=== PATIENT | female | born 1970 | race African-American/Black ===

== ENCOUNTER 2023-06-16 21:22 | Outpatient (BNV) | payer OTHER, SELFPAY | END 2023-06-17 | PROVIDERS: Admitting Provider Psychiatry & Neurology Psychiatry; Visit Provider Internal Medicine Cardiovascular Disease | DX: Z01.818 Encounter for other preprocedural examination (principal); F33.9 Major depressive disorder, recurrent, unspecified | CPT/HCPCS: 93010 ==

== ENCOUNTER 2023-06-16 21:22 | Inpatient (IN) | payer OTHER, SELFPAY ==
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
[2023-06-16 21:40] VITALS: BP 131/76; PULSE 65; RESP 18; TEMP 36.5; O2SAT 97
[2023-06-16] MEDS: LORazepam 0.5 MG TABLET PO (23:45)
[2023-06-16] MEDS: guaiFENesin LA 600 MG TAB.ER.12H PO (23:45)
[2023-06-16] MEDS: busPIRone HCl 10 MG TABLET PO (23:45)
[2023-06-16] MEDS: Throat Lozenge, Medicated LOZENGE 1 LOZENGE MUCOUS MEM (23:45)
[2023-06-16] MEDS: QUEtiapine Fumarate 50 MG TABLET PO (23:45)
[2023-06-16] MEDS: Topiramate 25 MG TABLET 75 MG PO (23:45)
--- NOTE | 2023-06-17 | ECG_ITS ---
Test Reason : ECT clearance Blood Pressure : / mmHG Vent. Rate : 068 BPM Atrial Rate : 068 BPM P-R Int : 144 ms QRS Dur : 084 ms QT Int : 414 ms P-R-T Axes : 033 -12 020 degrees QTc Int : 440 ms Normal sinus rhythm Normal ECG No previous ECGs available Referred By: Jaylan Barnett Electronically Signed By:Jg Doshi
[2023-06-17 02:41] VITALS: BMI 31.2
--- NOTE | 2023-06-17 03:02 | PC.ADMIT ---
Pt is a 52 yo female admitted to unit after interhospital transfer from [facility]. Pt was admitted to on 06/14/23 after an overdose and was treated in ICU. Pt then referred here at [facility] [place]. Pt attempted suicide via overdose on pills and was narcaned 5 times. Pt was intubated and is currently on antibiotics for preventive aspiration pneumonia secondary to intubation. Pt currently has productive cough and feels congested in lungs. Pt current medical issues are migraines, fibromyalgia, back pain, esophageal ulcers s/p gastric bypass, mid sternal CP d/t sternal rub/CPR, sore throat d/t intubation. Pt c/o headache moderate to severe. Pt denies etoh use and does report daily cannabis use of 1 joint daily to manage back pain. Pt reports that she has a back procedure scheduled for this Tuesday, June 20, 2023. Pt states that she was feeling alone and depressed in general. 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 While at work one night, pt feeling suicidal, called a crisis line and was put on hold after expressing her SI. She reports that she then quickly decided to overdose on her ativan, tinazidine and tylenol. Pt states her next memory is waking up in the hospital. When asked about how she feels about being here after suicide attempt, pt states good . Pt presents as quiet with good eye contact. Pt was linear in thinking and at times did exhibit some humor. Pt is dressed in [facility] [facility] and wrapped in a blanket. Pt's skin check was uneventful with no areas of rash, open areas, cuts or abrasions. Pt vitals were stable and WNL. Provider aeronautical drafter Roxanna notified of admission and orders obtained. Pt placed on 15 minute safety checks. Pt reports feeling safe in hospital.
[2023-06-17 06:00] VITALS: BP 110/77; PULSE 68; RESP 18; TEMP 36.6; O2SAT 98
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
[2023-06-17] MEDS: Topiramate 25 MG TABLET 75 MG PO (09:15)
[2023-06-17] MEDS: busPIRone HCl 10 MG TABLET PO (09:16)
[2023-06-17] MEDS: LORazepam 0.5 MG TABLET PO ×3 (09:25→20:56)
[2023-06-17 09:35] LABS: Alanine Aminotransferase 13 U/L (0-31); Albumin Level 3.5 g/dL (3.5-5.0); Alkaline Phosphatase 49 U/L (39-117); Anion Gap 10 (12-20); Aspartate Amino Transferase 13 U/L (5-31); Bilirubin Total 0.2 mg/dL (0.0-1.0); Blood Urea Nitrogen 9 mg/dL (9-16); Calcium 9.3 mg/dL (8.4-10.2); Carbon Dioxide 23 mmol/L (22-29); Chloride 112 mmol/L (96-108); Cholesterol 182 mg/dL (<200); Creatinine Clr Calc Pharmacy 91.6; Estimated Glomerular Filt Rate > 60; Glucose Fasting 82 mg/dL (60-99); HDL Cholesterol 78 mg/dL (>40); LDL Cholesterol Calculated 92 mg/dL (<100); Potassium 4.3 mmol/L (3.3-5.1); Sodium 141 mmol/L (135-145); Total Protein 6.3 g/dL (6.5-8.0); Triglycerides 64 mg/dL (<150)
[2023-06-17] MEDS: SUMAtriptan succinate 50 MG TABLET PO (10:19)
[2023-06-17] MEDS: Ondansetron ODT 4 MG TAB.RAPDIS TRANSLINGU (10:19)
[2023-06-17] MEDS: Throat Lozenge, Medicated LOZENGE 1 LOZENGE MUCOUS MEM ×3 (12:33→23:39)
[2023-06-17] MEDS: Amoxicillin/Potassium Clav 875 MG TABLET PO ×2 (13:29→20:45)
[2023-06-17] MEDS: FLUoxetine HCl 20 MG CAPSULE 80 MG PO (13:29)
[2023-06-17] MEDS: Lidocaine 4 % Patch ADH..PATCH 1 PATCH TRANSDERMA (13:30)
--- NOTE | 2023-06-17 17:08 | P.CONHOSP_ITS ---
History of Present Illness Data of Consult Service Date: 06/17/23 Primary Care Provider: Isacc Quinonez [facility] Reason for consult: Admission H&P; ECT clearance Pt is a 52-year-old female with a PMH significant for?fibromyalgia, migraines, chronic lower back pain, borderline personality trait, PTSD, and depression who is admitted to [facility] psychiatry unit for increased depression and suicide attempt by overdosing on Ativan, Tylenol, and tizanidine. Patient was found slumped over and unresponsive at a hotel desk. Given multiple doses intranasal and IV Narcan with little change. Was given [id number] ventilation on route to ED where she was subsequently intubated for airway protection. Was eventually extubated and started on Unasyn for suspected aspiration. Medical consult for admission H&P and ECT clearance. ?Patient complains of her stomach being messed up?. Reports having recent constipation with last bowel movement 1 week ago. Currently having gas, nausea, and abdominal cramping with frequent bowel movements with normal appearing stool. Denies diarrhea. Also complains of migraine headaches, as well as throat discomfort secondary to intubation and chest pain/pressure from chest compressions from EMS. Denies fever, chills. No shortness of breath. As for ECT clearance, ?pt denies a PMH of cerebral hemorrhage or stroke, CAD, space-occupying intracranial lesion, bleeding or otherwise unstable vascular aneurysm. No history of seizure disorder, TBI, or severe pulmonary condition. Denies any past problems with anesthesia. EKG pending. Review of Systems 2 Review of Systems: Migraine Gas, abd cramping, nausea Throat discomfort secondary to intubation Chest pain/discomfort secondary to chest compressions No fever, chills, vomiting, diarrhea, abd pain Denies SOB PMF Medical History (Updated 06/17/23 @ 19:29 by SHLOMO Hwang) Chronic low back pain Fibromyalgia Migraine Social History Household Members: None Housing: Apartment Do you presently have visiting nurse or other home services: Yes ([employer], Hom[employer]) Patient Tobacco Use Status: Never used Tobacco Smoked in Last 30 Days: No e-Cigarette/Vaping Use: Never Used Patient Interested in Nicotine Replacement: No Patient Given Instructions on How to Stop Smoking: No Use of substances other than those prescribed or required for medical reasons: Yes Substance Use Type: Marijuana Substance Use Frequency: Daily Last Used Substance: Just Prior to Admission Last Used Substance Other:: once joint a day Currently Displaying Signs/Symptoms of Drug Intoxication Withdrawal: No Any prior treatment program specific to substance use: No Have you been hit, kicked, punched, or otherwise hurt by someone within the past year? If so, by whom?: No Do you feel safe in your current relationship?: No Current Relationship Is there a partner from a previous relationship who is making you feel unsafe now?: No Are you made to feel afraid or neglected: No Advance Directives: No Advance Directives Information Provided: No Do you have thoughts of harming others: None Do you have a plan to hurt others: No Plan Recently lost weight without trying: No How much weight loss: Not applicable Eating poorly because of decreased appetite: No Nutrition screen score: 0 Nutrition Risks: No Nutritional Risk Patient : No : No Poor oral hygiene: No service: No Sexual orientation: Don't Know Meds Allergies Allergy/AdvReac Type Severity Reaction Status Date / Time lithium Allergy Unknown Unknown Verified 06/16/23 21:49 metformin Allergy Unknown Unknown Verified 06/16/23 21:49 NSAIDS (Non-Steroidal Allergy Unknown Unknown Verified 06/16/23 21:49 Anti-Inflamma propoxyphene Allergy Unknown Unknown Verified 06/16/23 21:49 sulfamethoxazole Allergy Unknown Unknown Verified 06/16/23 21:49 trimethoprim Allergy Unknown Unknown Verified 06/16/23 21:49 duloxetine AdvReac Unknown Nausea Verified 06/17/23 02:58 oxcarbazepine AdvReac Unknown Unknown Verified 06/16/23 21:49 Active Medications: Current Medications Al Hydroxide/Mg Hydroxide (Magnesium Hydrox/Alum Hydrox 30 Ml Oral.Susp) 30 ml PO Q6H PRN PRN Reason: Heartburn/Nausea Amoxicillin/Clavulanate Potassium (Amoxicillin/Potassium Clav 875 Mg Tablet) 875 mg PO BID [facility] Stop: 06/20/23 12:35 Last Admin: 06/17/23 13:29 Dose: 875 mg Benzocaine (Throat Lozenge, Medicated Lozenge) 1 lozenge MUCOUS MEM Q2H PRN PRN Reason: Sore Throat Last Admin: 06/17/23 12:33 Dose: 1 lozenge Buspirone HCl (Buspirone Hcl 10 Mg Tablet) 10 mg PO DAILY [facility] Fluoxetine HCl (Fluoxetine Hcl 20 Mg Capsule) 80 mg PO DAILY [facility] Last Admin: 06/17/23 13:29 Dose: 80 mg Fluticasone Propionate (Fluticasone Propionate Nasal 16 Gm [place]) 1 spray NOSTRIL-B BID ISAURO Last Admin: 06/17/23 09:17 Dose: Not Given Hydroxyzine HCl (Hydroxyzine Hcl 25 Mg Tablet) 25 mg PO Q6H PRN PRN Reason: Anxiety Lidocaine (Lidocaine 4 % Patch Adh..Patch) 1 patch TRANSDERMA DAILY PRN; Protocol PRN Reason: sternal pain Last Admin: 06/17/23 13:30 Dose: 1 patch Lorazepam (Lorazepam 0.5 Mg Tablet) 0.5 mg PO TID PRN PRN Reason: Anxiety Last Admin: 06/17/23 13:38 Dose: 0.5 mg Magnesium Hydroxide (Milk Of Magnesia 30 Ml Oral.Susp) 30 ml PO DAILY PRN PRN Reason: Constipation Magnesium Oxide (Magnesium Oxide 400 Mg Tablet) 400 mg PO DAILY ISAURO Multivitamins/Vitamin C (Multivitamin Tablet) 1 tab PO DAILY ISAURO Ondansetron HCl (Ondansetron Odt 4 Mg Tab.Rapdis) 4 mg TRANSLINGU Q6H PRN PRN Reason: Nausea and Vomiting Last Admin: 06/17/23 10:19 Dose: 4 mg Prazosin HCl (Prazosin Hcl 1 Mg Capsule) 1 mg PO BEDTIME ISAURO; Protocol Stop: 06/17/23 21:01 Prazosin HCl (Prazosin Hcl 1 Mg Capsule) 2 mg PO BEDTIME ISAURO; Protocol Stop: 06/18/23 21:01 Prazosin HCl (Prazosin Hcl 1 Mg Capsule) 3 mg PO BEDTIME ISAURO; Protocol Quetiapine Fumarate (Quetiapine Fumarate 50 Mg Tablet) 50 mg PO BEDTIME ISAURO Last Admin: 06/16/23 23:45 Dose: 50 mg Sumatriptan Succinate (Sumatriptan Succinate 100 Mg Tablet) 100 mg PO DAILY MRX1 PRN PRN Reason: Migraine Headache Topiramate (Topiramate 25 Mg Tablet) 50 mg PO BEDTIME ISAURO Stop: 06/18/23 21:01 Topiramate (Topiramate 25 Mg Tablet) 50 mg PO DAILY ISAURO Stop: 06/19/23 09:01 Topiramate (Topiramate 25 Mg Tablet) 25 mg PO DAILY ISAURO Stop: 06/21/23 09:01 Topiramate (Topiramate 25 Mg Tablet) 25 mg PO BEDTIME ISAURO Stop: 06/20/23 21:01 Trazodone HCl (Trazodone Hcl 50 Mg Tablet) 50 mg PO BEDTIME MRX1 PRN PRN Reason: Insomnia Home Medications Medication Instructions Recorded Confirmed Last Taken Type buspirone 10 mg tablet 10 mg PO TID 06/17/23 06/17/23 06/16/23 23:45 History cholecalciferol (vitamin D3) 50 50 mcg PO DAILY 06/17/23 06/17/23 Unknown History mcg (2,000 unit) tablet (Vitamin D3) fluoxetine 80 mg PO DAILY 06/17/23 06/17/23 06/16/23 09:02 History liraglutide 0.6 mg/0.1 mL (18 mg/3 1.8 mg subcut DAILY 06/17/23 06/17/23 Unknown History mL) subcutaneous pen injector (Victoza 3-Kyaw) lorazepam 0.5 mg tablet 0.5 mg PO TID PRN anxiety 06/17/23 06/17/23 Unknown History ondansetron 4 mg disintegrating 4 mg translingual Q8H PRN Nausea 06/17/23 06/17/23 Unknown History tablet quetiapine 50 mg tablet 50 mg PO BEDTIME 06/17/23 06/17/23 06/16/23 23:45 History sumatriptan succinate 100 mg tablet 100 mg PO 2XW 06/17/23 06/17/23 Unknown History tizanidine 4 mg tablet 4 mg PO Q12H PRN Muscle Pain 06/17/23 06/17/23 Unknown History topiramate 25 mg tablet 75 mg PO BID 06/17/23 06/17/23 06/16/23 23:45 History Physical Exam 2 Vital Signs and Narrative: Vital Signs: Last Vital Signs Temp 98 F 06/17/23 06:00 Pulse 68 06/17/23 06:00 Resp 18 06/17/23 06:00 BP 110/77 06/17/23 06:00 Pulse Ox 98 06/17/23 06:00 O2 Del Method Room Air 06/17/23 06:00 BMI result Body Mass Index 31.2 General: AOx3, no acute distress Resp: Coarse crackles bilaterally CVS: S1, S2, RRR GI: +BS, NT, no distention Skin: Warm, dry Neuro: Cranial nerves II-XII grossly intact bilaterally. Motor grossly intact bilaterally Extremities: No edema Results Labs 06/17/23 09:06 Labs: Laboratory Results - last 24 hr 06/17/23 09:06 Anion Gap 10 L Estim Creat Clear Calc 91.6 Estimated GFR > 60 Fasting Glucose 82 Calcium 9.3 Total Bilirubin 0.2 AST 13 ALT 13 Alkaline Phosphatase 49 Total Protein 6.3 L Albumin 3.5 Triglycerides 64 Cholesterol 182 LDL Cholesterol, Calc 92 HDL Cholesterol 78 Assessment and Plan (1) Medical clearance for psychiatric admission: Status: Acute (2) Pre-op evaluation: Status: Acute Plan Pt is a 52-year-old female with a PMH significant for?fibromyalgia, migraines, chronic lower back pain, borderline personality trait, PTSD, and depression who is admitted to [facility] psychiatry unit for increased depression and suicide attempt by overdosing on Ativan, Tylenol, and tizanidine. Patient was found slumped over and unresponsive at a hotel desk. Given multiple doses intranasal and IV Narcan with little change. Was given [id number] ventilation on route to ED where she was subsequently intubated for airway protection. Was eventually extubated and started on Unasyn for suspected aspiration. Medical consult for admission H&P and ECT clearance. Mood disorder Plan as per Psychiatry ECT clearance EKG pending Otherwise there are no obvious contraindications to the planned procedure Coarse crackles on auscultation Likely secondary to aspiration from overdose Continue Augmentin Abdominal cramping/discomfort, nausea Will give Gas-X Milk of magnesia and or Colace if constipation returns Ondansetron p.r.n. nausea Migraines Continue topiramate, sumatriptan Chronic lower back pain Continue tizanidine Will follow until EKG is completed.
[2023-06-17] MEDS: SUMAtriptan succinate 100 MG TABLET PO (18:55)
[2023-06-17 20:20] VITALS: BP 138/85; PULSE 65; RESP 18; TEMP 36.6; O2SAT 97
[2023-06-17] MEDS: Prazosin HCL 1 MG CAPSULE PO (20:44)
[2023-06-17] MEDS: QUEtiapine Fumarate 50 MG TABLET PO (20:44)
[2023-06-17] MEDS: Topiramate 25 MG TABLET 50 MG PO (20:45)
[2023-06-17] MEDS: Simethicone 80 MG TAB.CHEW PO (20:56)
[2023-06-18] MEDS: SUMAtriptan succinate 100 MG TABLET PO ×3 (03:13→17:40)
[2023-06-18] MEDS: LORazepam 0.5 MG TABLET PO ×3 (03:15→19:27)
[2023-06-18 06:00] VITALS: BP 106/84; PULSE 77; RESP 16; TEMP 36.8; O2SAT 98
[2023-06-18] MEDS: FLUoxetine HCl 20 MG CAPSULE 80 MG PO (08:49)
[2023-06-18] MEDS: busPIRone HCl 10 MG TABLET PO (08:49)
[2023-06-18] MEDS: Multivitamin TABLET 1 TAB PO (08:49)
[2023-06-18] MEDS: hydrOXYzine HCL 25 MG TABLET PO ×2 (08:49→13:38)
[2023-06-18] MEDS: Amoxicillin/Potassium Clav 875 MG TABLET PO ×2 (08:49→21:00)
[2023-06-18] MEDS: Magnesium Oxide 400 MG TABLET PO (08:49)
[2023-06-18] MEDS: Topiramate 25 MG TABLET 50 MG PO ×2 (08:49→20:59)
[2023-06-18] MEDS: Lidocaine 4 % Patch ADH..PATCH 1 PATCH TRANSDERMA (13:21)
[2023-06-18] MEDS: Throat Lozenge, Medicated LOZENGE 1 LOZENGE MUCOUS MEM ×2 (14:11→19:29)
--- NOTE | 2023-06-18 14:32 | P.PNPSI_ITS ---
Subjective Subjective Date of Service: 06/18/23 Reason For Visit: PTSD and BPD Subjective Notes: Conditional Voluntary Healthcare Proxy: No Guardianship: No Interim History: 52yo s/p significant OD on multiple medications- co throat pain from entubation- she is pending ECT for suicidal depression- still hopeless and helpless, passive si no current plan. 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 pending ekg prior to ECT Medication Compliance: Yes Side effects from medications: No Attending Groups: Intermittent Review of Systems Acute medical concerns: No Medical Review of Systems: unchanged Mental Status Exam Mental Status Exam Patient Appearance: Fatigued and Unkempt Patient Orientation: Person, Place, Time and Situation Level of Consciousness: Awake and Appropriate Patient Behavior: Cooperative and Good Eye Contact Mood Description: Withdrawn and Anxious Affect Description: Constricted Patient Cognition Impaired: No Ability to Follow Directions: Fair Speech Pattern: Clear Memory Description: Intact Hallucinations: None Delusions: Not Present Thought Process: Intact and Goal Oriented Thought Content: positive for Suicidal Ideation Depressive Symptoms: Increased Anxiety, Muscle Tension, Muscle Pain, Feelings of Worthlessness, Hopelessness, Unhappiness, Thoughts of /Suicide and Unexplained Stomach Pain Judgement: Fair Diagnostics Vital Signs (24Hr): Vital Signs - 24 hr 06/17/23 20:20 06/18/23 06:00 Temperature 97.8 F 98.3 F Pulse Rate 65 77 Respiratory Rate 18 16 Blood Pressure 138/85 106/84 Pulse Oximetry 97 98 Oxygen Delivery Method Room Air Room Air BMI result Body Mass Index 31.2 Labs 06/17/23 09:06 Labs: Laboratory Results - last 48 hr 06/17/23 09:06 Sodium 141 Potassium 4.3 Chloride 112 H Carbon Dioxide 23 Anion Gap 10 L BUN 9 Creatinine 0.81 Estim Creat Clear Calc 91.6 Estimated GFR > 60 Fasting Glucose 82 Calcium 9.3 Total Bilirubin 0.2 AST 13 ALT 13 Alkaline Phosphatase 49 Total Protein 6.3 L Albumin 3.5 Triglycerides 64 Cholesterol 182 LDL Cholesterol, Calc 92 HDL Cholesterol 78 Medications Medications Current Medications Al Hydroxide/Mg Hydroxide (Magnesium Hydrox/Alum Hydrox 30 Ml Oral.Susp) 30 ml PO Q6H PRN PRN Reason: Heartburn/Nausea Amoxicillin/Clavulanate Potassium (Amoxicillin/Potassium Clav 875 Mg Tablet) 875 mg PO BID [facility] Stop: 06/20/23 12:35 Last Admin: 06/18/23 08:49 Dose: 875 mg Benzocaine (Throat Lozenge, Medicated Lozenge) 1 lozenge MUCOUS MEM Q2H PRN PRN Reason: Sore Throat Last Admin: 06/18/23 14:11 Dose: 1 lozenge Buspirone HCl (Buspirone Hcl 10 Mg Tablet) 10 mg PO DAILY [facility] Last Admin: 06/18/23 08:49 Dose: 10 mg Fluoxetine HCl (Fluoxetine Hcl 20 Mg Capsule) 80 mg PO DAILY [facility] Last Admin: 06/18/23 08:49 Dose: 80 mg Fluticasone Propionate (Fluticasone Propionate Nasal 16 Gm [place]) 1 spray NOSTRIL-B BID [facility] Last Admin: 06/18/23 08:58 Dose: Not Given Hydroxyzine HCl (Hydroxyzine Hcl 25 Mg Tablet) 25 mg PO Q6H PRN PRN Reason: Anxiety Last Admin: 06/18/23 13:38 Dose: 25 mg Lidocaine (Lidocaine 4 % Patch Adh..Patch) 1 patch TRANSDERMA DAILY PRN; Protocol PRN Reason: sternal pain Last Admin: 06/18/23 13:21 Dose: 1 patch Lorazepam (Lorazepam 0.5 Mg Tablet) 0.5 mg PO TID PRN PRN Reason: Anxiety Last Admin: 06/18/23 09:00 Dose: 0.5 mg Magnesium Hydroxide (Milk Of Magnesia 30 Ml Oral.Susp) 30 ml PO DAILY PRN PRN Reason: Constipation Magnesium Oxide (Magnesium Oxide 400 Mg Tablet) 400 mg PO DAILY [facility] Last Admin: 06/18/23 08:49 Dose: 400 mg Multivitamins/Vitamin C (Multivitamin Tablet) 1 tab PO DAILY [facility] Last Admin: 06/18/23 08:49 Dose: 1 tab Ondansetron HCl (Ondansetron Odt 4 Mg Tab.Rapdis) 4 mg TRANSLINGU Q6H PRN PRN Reason: Nausea and Vomiting Last Admin: 06/17/23 10:19 Dose: 4 mg Prazosin HCl (Prazosin Hcl 1 Mg Capsule) 2 mg PO BEDTIME [facility]; Protocol Stop: 06/18/23 21:01 Prazosin HCl (Prazosin Hcl 1 Mg Capsule) 3 mg PO BEDTIME [facility]; Protocol Quetiapine Fumarate (Quetiapine Fumarate 50 Mg Tablet) 50 mg PO BEDTIME [facility] Last Admin: 06/17/23 20:44 Dose: 50 mg Simethicone (Simethicone 80 Mg Tab.Chew) 80 mg PO QIDWMHS PRN PRN Reason: Gas Last Admin: 06/17/23 20:56 Dose: 80 mg Sumatriptan Succinate (Sumatriptan Succinate 100 Mg Tablet) 100 mg PO DAILY MRX1 PRN PRN Reason: Migraine Headache Last Admin: 06/18/23 13:21 Dose: 100 mg Topiramate (Topiramate 25 Mg Tablet) 50 mg PO BEDTIME [facility] Stop: 06/18/23 21:01 Last Admin: 06/17/23 20:45 Dose: 50 mg Topiramate (Topiramate 25 Mg Tablet) 50 mg PO DAILY [facility] Stop: 06/19/23 09:01 Last Admin: 06/18/23 08:49 Dose: 50 mg Topiramate (Topiramate 25 Mg Tablet) 25 mg PO DAILY [facility] Stop: 06/21/23 09:01 Topiramate (Topiramate 25 Mg Tablet) 25 mg PO BEDTIME [facility] Stop: 06/20/23 21:01 Trazodone HCl (Trazodone Hcl 50 Mg Tablet) 50 mg PO BEDTIME MRX1 PRN PRN Reason: Insomnia Allergies Allergies Allergy/AdvReac Type Severity Reaction Status Date / Time lithium Allergy Unknown Unknown Verified 06/16/23 21:49 metformin Allergy Unknown Unknown Verified 06/16/23 21:49 NSAIDS (Non-Steroidal Allergy Unknown Unknown Verified 06/16/23 21:49 Anti-Inflamma propoxyphene Allergy Unknown Unknown Verified 06/16/23 21:49 sulfamethoxazole Allergy Unknown Unknown Verified 06/16/23 21:49 trimethoprim Allergy Unknown Unknown Verified 06/16/23 21:49 duloxetine AdvReac Unknown Nausea Verified 06/17/23 02:58 oxcarbazepine AdvReac Unknown Unknown Verified 06/16/23 21:49 Assessment & Plan Assessment & Plan (1) Major depressive disorder, recurrent episode: Status: Acute Code(s): F33.9 - Major depressive disorder, recurrent, unspecified (2) Chronic post-traumatic stress disorder (PTSD): Status: Acute Code(s): F43.12 - Post-traumatic stress disorder, chronic (3) Cocaine use disorder in remission: Status: Acute Code(s): F14.91 - Cocaine use, unspecified, in remission (4) Cannabis use with anxiety disorder: Status: Acute Code(s): F12.980 - Cannabis use, unspecified with anxiety disorder Plan continue most of outpatient regimen, including buspar, prozac, ativan, prozazc, seroquel. taper and DC topamax as not presently indicated and as relatively contraindicated for ECT. she had been taking it for cocaine cravings, and she is no longer substantially concerned about cocaine use. pt uses victoza daily SQ injections; she does not have medication with her and it is NF at [facility]. said medication will be held until discharge. continue bactrim DS BID for 3 days for aspiration PNA. consult for medical clearance for ECT and ECT consult to Dr Marie. 06/18/23 - ok prn tylenol- lfts ok and tyl lvl 06/14 less 15 -CTP with pending ECT for depression/si Patient educated on: medication risk/benefits, ECT and medical condition Informed Consent: further education needed Reason for continued inpatient stay Substantial Risk for: harm to self and rapid decompensation Time Spent With Patient Time: Total time managing care of this patient today ____ minutes.
[2023-06-18 21:00] VITALS: BP 115/69; PULSE 68; RESP 18; TEMP 36.6; O2SAT 98
[2023-06-18] MEDS: QUEtiapine Fumarate 50 MG TABLET PO (21:00)
[2023-06-18] MEDS: Prazosin HCL 1 MG CAPSULE 2 MG PO (21:00)
[2023-06-19] MEDS: hydrOXYzine HCL 25 MG TABLET PO ×3 (02:03→19:34)
[2023-06-19] MEDS: LORazepam 0.5 MG TABLET PO ×2 (02:03→14:04)
[2023-06-19] MEDS: SUMAtriptan succinate 100 MG TABLET PO ×2 (02:03→14:04)
[2023-06-19] MEDS: HaloperidoL 5 MG TABLET PO (04:53)
[2023-06-19] MEDS: LORazepam 1 MG TABLET PO (04:53)
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
[2023-06-19 07:05] VITALS: BP 104/55; PULSE 70; RESP 18; TEMP 36.4; O2SAT 96
[2023-06-19] MEDS: Amoxicillin/Potassium Clav 875 MG TABLET PO ×2 (08:14→20:27)
[2023-06-19] MEDS: Multivitamin TABLET 1 TAB PO (08:15)
[2023-06-19] MEDS: busPIRone HCl 10 MG TABLET PO (08:15)
[2023-06-19] MEDS: Magnesium Oxide 400 MG TABLET PO (08:15)
[2023-06-19] MEDS: FLUoxetine HCl 20 MG CAPSULE 80 MG PO (08:16)
[2023-06-19] MEDS: Topiramate 25 MG TABLET 50 MG PO (08:16)
[2023-06-19] MEDS: Acetaminophen 325 MG TABLET 650 MG PO (08:51)
[2023-06-19] MEDS: Lidocaine 4 % Patch ADH..PATCH 1 PATCH TRANSDERMA (08:52)
--- NOTE | 2023-06-19 13:55 | P.PNPSI_ITS ---
Subjective Subjective Date of Service: 06/19/23 Reason For Visit: PTSD and BPD Subjective Notes: Conditional Voluntary Interim History: 52 yo told her son that she was going for ECT - hoping it will make a difference- Had terrible incident last pm couldn't sleep so went to shower - was loud in shower and staff (male) went to tell her to lower volume/tone- pt began yelling and screaming - felt triggered and intruded upon- like her past trauma- felt if there had been a knock she would have been less reactive- felt haldol/ativan calmed her down- Discussed no ativan prior to ECt night before and npo- was given print out from [facility] on ECT information- Medication Compliance: Yes Side effects from medications: No Attending Groups: Yes Review of Systems Acute medical concerns: No Medical Review of Systems: unchanged Mental Status Exam Mental Status Exam Patient Appearance: Well Grooomed and Appropriate Patient Orientation: Person, Place, Time and Situation Level of Consciousness: Awake Patient Behavior: Appropriate (today- ), Talkative, Cooperative, Fearful and Good Eye Contact Mood Description: Anxious Affect Description: Apprehensive Patient Cognition Impaired: No Ability to Follow Directions: Good Speech Pattern: Clear Hallucinations: None Delusions: Not Present Thought Process: Intact and Goal Oriented Thought Content: positive for Intact and positive for Suicidal Ideation Depressive Symptoms: Increased Anxiety, Diff. Making Decisions, Difficulty Sleeping and Loss of Energy Judgement: Fair Diagnostics Vital Signs (24Hr): Vital Signs - 24 hr 06/18/23 21:00 06/19/23 07:05 Temperature 97.8 F 97.5 F Pulse Rate 68 70 Respiratory Rate 18 18 Blood Pressure 115/69 104/55 L Pulse Oximetry 98 96 Oxygen Delivery Method Room Air Room Air BMI result Body Mass Index 31.2 Labs 06/17/23 09:06 Medications Medications Current Medications Acetaminophen (Acetaminophen 325 Mg Tablet) 650 mg PO Q6H PRN PRN Reason: moderate pain Last Admin: 06/19/23 08:51 Dose: 650 mg Al Hydroxide/Mg Hydroxide (Magnesium Hydrox/Alum Hydrox 30 Ml Oral.Susp) 30 ml PO Q6H PRN PRN Reason: Heartburn/Nausea Amoxicillin/Clavulanate Potassium (Amoxicillin/Potassium Clav 875 Mg Tablet) 875 mg PO BID [facility] Stop: 06/20/23 12:35 Last Admin: 06/19/23 08:14 Dose: 875 mg Benzocaine (Throat Lozenge, Medicated Lozenge) 1 lozenge MUCOUS MEM Q2H PRN PRN Reason: Sore Throat Last Admin: 06/18/23 19:29 Dose: 1 lozenge Buspirone HCl (Buspirone Hcl 10 Mg Tablet) 10 mg PO DAILY [facility] Last Admin: 06/19/23 08:15 Dose: 10 mg Fluoxetine HCl (Fluoxetine Hcl 20 Mg Capsule) 80 mg PO DAILY [facility] Last Admin: 06/19/23 08:16 Dose: 80 mg Fluticasone Propionate (Fluticasone Propionate Nasal 16 Gm [place]) 1 spray NOSTRIL-B BID [facility] Last Admin: 06/19/23 08:17 Dose: Not Given Hydroxyzine HCl (Hydroxyzine Hcl 25 Mg Tablet) 25 mg PO Q6H PRN PRN Reason: Anxiety Last Admin: 06/19/23 08:50 Dose: 25 mg Lidocaine (Lidocaine 4 % Patch Adh..Patch) 1 patch TRANSDERMA DAILY PRN; Protocol PRN Reason: sternal pain Last Admin: 06/19/23 08:52 Dose: 1 patch Lorazepam (Lorazepam 0.5 Mg Tablet) 0.5 mg PO TID PRN PRN Reason: Anxiety Last Admin: 06/19/23 02:03 Dose: 0.5 mg Magnesium Hydroxide (Milk Of Magnesia 30 Ml Oral.Susp) 30 ml PO DAILY PRN PRN Reason: Constipation Magnesium Oxide (Magnesium Oxide 400 Mg Tablet) 400 mg PO DAILY [facility] Last Admin: 06/19/23 08:15 Dose: 400 mg Multivitamins/Vitamin C (Multivitamin Tablet) 1 tab PO DAILY [facility] Last Admin: 06/19/23 08:15 Dose: 1 tab Ondansetron HCl (Ondansetron Odt 4 Mg Tab.Rapdis) 4 mg TRANSLINGU Q6H PRN PRN Reason: Nausea and Vomiting Last Admin: 06/17/23 10:19 Dose: 4 mg Prazosin HCl (Prazosin Hcl 1 Mg Capsule) 3 mg PO BEDTIME [facility]; Protocol Quetiapine Fumarate (Quetiapine Fumarate 50 Mg Tablet) 50 mg PO BEDTIME [facility] Last Admin: 06/18/23 21:00 Dose: 50 mg Simethicone (Simethicone 80 Mg Tab.Chew) 80 mg PO QIDWMHS PRN PRN Reason: Gas Last Admin: 06/17/23 20:56 Dose: 80 mg Sumatriptan Succinate (Sumatriptan Succinate 100 Mg Tablet) 100 mg PO DAILY MRX1 PRN PRN Reason: Migraine Headache Last Admin: 06/19/23 02:03 Dose: 100 mg Topiramate (Topiramate 25 Mg Tablet) 25 mg PO DAILY [facility] Stop: 06/21/23 09:01 Topiramate (Topiramate 25 Mg Tablet) 25 mg PO BEDTIME [facility] Stop: 06/20/23 21:01 Trazodone HCl (Trazodone Hcl 50 Mg Tablet) 50 mg PO BEDTIME MRX1 PRN PRN Reason: Insomnia Allergies Allergies Allergy/AdvReac Type Severity Reaction Status Date / Time lithium Allergy Unknown Unknown Verified 06/16/23 21:49 metformin Allergy Unknown Unknown Verified 06/16/23 21:49 NSAIDS (Non-Steroidal Allergy Unknown Unknown Verified 06/16/23 21:49 Anti-Inflamma propoxyphene Allergy Unknown Unknown Verified 06/16/23 21:49 sulfamethoxazole Allergy Unknown Unknown Verified 06/16/23 21:49 trimethoprim Allergy Unknown Unknown Verified 06/16/23 21:49 duloxetine AdvReac Unknown Nausea Verified 06/17/23 02:58 oxcarbazepine AdvReac Unknown Unknown Verified 06/16/23 21:49 Assessment & Plan Assessment & Plan (1) Major depressive disorder, recurrent episode: Status: Acute Code(s): F33.9 - Major depressive disorder, recurrent, unspecified Assessment and Plan: pending ECT (2) Chronic post-traumatic stress disorder (PTSD): Status: Acute Code(s): F43.12 - Post-traumatic stress disorder, chronic Assessment and Plan: very reactive/reactionary- with triggers jm at night (3) Cocaine use disorder in remission: Status: Acute Code(s): F14.91 - Cocaine use, unspecified, in remission (4) Cannabis use with anxiety disorder: Status: Acute Code(s): F12.980 - Cannabis use, unspecified with anxiety disorder Plan Pt is a 52-year-old female with a PMH significant for?fibromyalgia, migraines, chronic lower back pain, borderline personality trait, PTSD, and depression who is admitted to psychiatry unit for increased depression and suicide attempt by overdosing on Ativan, Tylenol, and tizanidine. Patient was found slumped over and unresponsive at a hotel desk. Given multiple doses intranasal and IV Narcan with little change. Was given [id number] ventilation on route to ED where she was subsequently intubated for airway protection. Was eventually extubated and started on Unasyn for suspected aspiration. Medical consult for admission H&P and ECT clearance. Mood disorder Plan as per Psychiatry ECT clearance EKG pending Otherwise there are no obvious contraindications to the planned procedure Coarse crackles on auscultation Likely secondary to aspiration from overdose Continue Augmentin Abdominal cramping/discomfort, nausea Will give Gas-X Milk of magnesia and or Colace if constipation returns Ondansetron p.r.n. nausea Migraines Continue topiramate, sumatriptan Chronic lower back pain Continue tizanidine Will follow until EKG is completed. 06/19/23 will be npo tonight in hopes of add on for ECT tomorrow Patient educated on: ECT Informed Consent: understands Reason for continued inpatient stay Substantial Risk for: harm to self and rapid decompensation Time Spent With Patient Time: Total time managing care of this patient today ____ minutes.
[2023-06-19] MEDS: QUEtiapine Fumarate 50 MG TABLET PO (20:28)
[2023-06-19] MEDS: Topiramate 25 MG TABLET PO (20:28)
[2023-06-19] MEDS: Prazosin HCL 1 MG CAPSULE 3 MG PO (20:28)
[2023-06-19 20:31] VITALS: BP 114/64; PULSE 81; RESP 16; TEMP 36.4; O2SAT 97
--- NOTE | 2023-06-19 20:57 | PC.NURSE ---
Keke was given Atarax PO prn for anxiety 08/28.
[2023-06-20] MEDS: Acetaminophen 325 MG TABLET 650 MG PO (08:11)
[2023-06-20] MEDS: LORazepam 1 MG TABLET 2 MG PO (08:11)
[2023-06-20] MEDS: OLANZapine 5 MG TABLET PO (08:14)
[2023-06-20 09:00] VITALS: BP 136/98; PULSE 77; RESP 18; TEMP 36.5; O2SAT 97
[2023-06-20] MEDS: Multivitamin TABLET 1 TAB PO (09:35)
[2023-06-20] MEDS: Topiramate 25 MG TABLET PO ×2 (09:35→21:08)
[2023-06-20] MEDS: busPIRone HCl 10 MG TABLET PO (09:35)
[2023-06-20] MEDS: FLUoxetine HCl 20 MG CAPSULE 80 MG PO (09:35)
[2023-06-20] MEDS: Magnesium Oxide 400 MG TABLET PO (09:35)
[2023-06-20] MEDS: Amoxicillin/Potassium Clav 875 MG TABLET PO (09:35)
[2023-06-20] MEDS: Lidocaine 4 % Patch ADH..PATCH 1 PATCH TRANSDERMA (12:16)
[2023-06-20] MEDS: LORazepam 0.5 MG TABLET PO ×2 (12:16→21:07)
[2023-06-20] MEDS: hydrOXYzine HCL 50 MG TABLET PO (12:16)
--- NOTE | 2023-06-20 14:47 | HO.PSYCHPN ---
Subjective Subjective Date of Service: 06/20/23 Reason For Visit: PTSD and BPD Interim History: seen late morning resting in bed. rousable, pleasant, cooperative. discuss events of the morning wherein she reportedly became very verbally aggressive with staff when she was told she would not be getting ECT today after having been NPO all night. she portrayed the situation as if she had been led to believe she WOULD have ECT today and was FORCED to be NPO. staff at report described the situation rather as she was told it was POSSIBLE she might have ECT today and if she wanted to try for it then she SHOULD be NPO overnight. punched wall, xray read as no Fx. reviewed with pt. c/o insomnia with nightmares as well as daytime anxiety. agreed to increase prazosin to 4 mg QHS for sleep/coon and to increase daytime hydroxyzine PRNs to 50 mg each for anxiety. per staff, outburst thism orning re not getting ECT. sat NOC overnight was up and disruptive at 0200 due to male staff asking her to be quiet in the shower. Mental Status Exam Mental Status Exam Narrative: adequately dressed and groomed, cooperative, no PMA/PMR. speech nml rate, amount, loudness, tone, latency. thoughts linear and logical. affect constricted, normo-intense, min-labile. mood not assessed. no SI/SIBI/HI/AVH expressed. Diagnostics Vital Signs (24Hr): Vital Signs - 24 hr 06/19/23 20:31 06/20/23 09:00 Temperature 97.6 F 97.7 F Pulse Rate 81 77 Respiratory Rate 16 18 Blood Pressure 114/64 136/98 H Pulse Oximetry 97 97 Oxygen Delivery Method Room Air Room Air BMI result Body Mass Index 31.2 Labs 06/17/23 09:06 Imaging Radiology Impressions: ITS Impressions Wrist X-Ray 06/20/23 08:40 IMPRESSION: Linear sclerotic focus distal metadiaphysis of the fifth metacarpal without cortical discontinuity/displacement. An occult fracture cannot be excluded. This corresponds to the marker placed at the site of trauma. Short interval follow-up may be considered. Medications Medications Current Medications Acetaminophen (Acetaminophen 325 Mg Tablet) 975 mg PO Q6H PRN PRN Reason: moderate pain Al Hydroxide/Mg Hydroxide (Magnesium Hydrox/Alum Hydrox 30 Ml Oral.Susp) 30 ml PO Q6H PRN PRN Reason: Heartburn/Nausea Benzocaine (Throat Lozenge, Medicated Lozenge) 1 lozenge MUCOUS MEM Q2H PRN PRN Reason: Sore Throat Last Admin: 06/18/23 19:29 Dose: 1 lozenge Buspirone HCl (Buspirone Hcl 10 Mg Tablet) 10 mg PO DAILY [facility] Last Admin: 06/20/23 09:35 Dose: 10 mg Fluoxetine HCl (Fluoxetine Hcl 20 Mg Capsule) 80 mg PO DAILY [facility] Last Admin: 06/20/23 09:35 Dose: 80 mg Fluticasone Propionate (Fluticasone Propionate Nasal 16 Gm [place]) 1 spray NOSTRIL-B BID PRN PRN Reason: Nasal Congestion Hydroxyzine HCl (Hydroxyzine Hcl 50 Mg Tablet) 50 mg PO Q6H PRN PRN Reason: Anxiety Last Admin: 06/20/23 12:16 Dose: 50 mg Lidocaine (Lidocaine 4 % Patch Adh..Patch) 1 patch TRANSDERMA DAILY PRN; Protocol PRN Reason: sternal pain Last Admin: 06/20/23 12:16 Dose: 1 patch Lorazepam (Lorazepam 0.5 Mg Tablet) 0.5 mg PO TID PRN PRN Reason: Anxiety Last Admin: 06/20/23 12:16 Dose: 0.5 mg Magnesium Hydroxide (Milk Of Magnesia 30 Ml Oral.Susp) 30 ml PO DAILY PRN PRN Reason: Constipation Magnesium Oxide (Magnesium Oxide 400 Mg Tablet) 400 mg PO DAILY [facility] Last Admin: 06/20/23 09:35 Dose: 400 mg Multivitamins/Vitamin C (Multivitamin Tablet) 1 tab PO DAILY [facility] Last Admin: 06/20/23 09:35 Dose: 1 tab Ondansetron HCl (Ondansetron Odt 4 Mg Tab.Rapdis) 4 mg TRANSLINGU Q6H PRN PRN Reason: Nausea and Vomiting Last Admin: 06/17/23 10:19 Dose: 4 mg Prazosin HCl (Prazosin Hcl 1 Mg Capsule) 4 mg PO BEDTIME [facility]; Protocol Quetiapine Fumarate (Quetiapine Fumarate 50 Mg Tablet) 50 mg PO BEDTIME [facility] Simethicone (Simethicone 80 Mg Tab.Chew) 80 mg PO QIDWMHS PRN PRN Reason: Gas Last Admin: 06/17/23 20:56 Dose: 80 mg Sumatriptan Succinate (Sumatriptan Succinate 100 Mg Tablet) 100 mg PO DAILY MRX1 PRN PRN Reason: Migraine Headache Last Admin: 06/19/23 14:04 Dose: 100 mg Topiramate (Topiramate 25 Mg Tablet) 25 mg PO DAILY [facility] Stop: 06/21/23 09:01 Last Admin: 06/20/23 09:35 Dose: 25 mg Topiramate (Topiramate 25 Mg Tablet) 25 mg PO BEDTIME [facility] Stop: 06/20/23 21:01 Last Admin: 06/19/23 20:28 Dose: 25 mg Trazodone HCl (Trazodone Hcl 50 Mg Tablet) 50 mg PO BEDTIME MRX1 PRN PRN Reason: Insomnia Allergies Allergies Allergy/AdvReac Type Severity Reaction Status Date / Time lithium Allergy Unknown Unknown Verified 06/16/23 21:49 metformin Allergy Unknown Unknown Verified 06/16/23 21:49 NSAIDS (Non-Steroidal Allergy Unknown Unknown Verified 06/16/23 21:49 Anti-Inflamma propoxyphene Allergy Unknown Unknown Verified 06/16/23 21:49 sulfamethoxazole Allergy Unknown Unknown Verified 06/16/23 21:49 trimethoprim Allergy Unknown Unknown Verified 06/16/23 21:49 duloxetine AdvReac Unknown Nausea Verified 06/17/23 02:58 oxcarbazepine AdvReac Unknown Unknown Verified 06/16/23 21:49 Assessment & Plan Assessment & Plan (1) Major depressive disorder, recurrent episode: Status: Acute Code(s): F33.9 - Major depressive disorder, recurrent, unspecified Assessment and Plan: pending ECT (2) Chronic post-traumatic stress disorder (PTSD): Status: Acute Code(s): F43.12 - Post-traumatic stress disorder, chronic Assessment and Plan: very reactive/reactionary- with triggers jm at night (3) Cocaine use disorder in remission: Status: Acute Code(s): F14.91 - Cocaine use, unspecified, in remission (4) Cannabis use with anxiety disorder: Status: Acute Code(s): F12.980 - Cannabis use, unspecified with anxiety disorder Plan Pt is a 52-year-old female with a PMH significant for?fibromyalgia, migraines, chronic lower back pain, borderline personality trait, PTSD, and depression who is admitted to psychiatry unit for increased depression and suicide attempt by overdosing on Ativan, Tylenol, and tizanidine. Patient was found slumped over and unresponsive at a hotel desk. Given multiple doses intranasal and IV Narcan with little change. Was given [id number] ventilation on route to ED where she was subsequently intubated for airway protection. Was eventually extubated and started on Unasyn for suspected aspiration. Medical consult for admission H&P and ECT clearance. Mood disorder Plan as per Psychiatry ECT clearance EKG pending Otherwise there are no obvious contraindications to the planned procedure Coarse crackles on auscultation Likely secondary to aspiration from overdose Continue Augmentin Abdominal cramping/discomfort, nausea Will give Gas-X Milk of magnesia and or Colace if constipation returns Ondansetron p.r.n. nausea Migraines Continue topiramate, sumatriptan Chronic lower back pain Continue tizanidine Will follow until EKG is completed. 06/16: continue most of outpatient regimen, including buspar, prozac, ativan, prozazc, seroquel. taper and DC topamax as not presently indicated and as relatively contraindicated for ECT. she had been taking it for cocaine cravings, and she is no longer substantially concerned about cocaine use. pt uses victoza daily SQ injections; she does not have medication with her and it is NF at [facility] [place]. said medication will be held until discharge. continue bactrim DS BID for 3 days for aspiration PNA. consult for medical clearance for ECT and ECT consult to Dr Marie. 06/18/23 - ok prn tylenol- lfts ok and tyl lvl 06/14 less 15 -CTP with pending ECT for depression/si 06/19/23 will be npo tonight in hopes of add on for ECT tomorrow 06/19: outburst due to not having expected ECT this morning. consult verbally communicated to yasmine. medically cleared for ECT. increase prazosin to 4 mg QHS for nightmares and insomnia in PTSD. increase daytime hydroxyzine PRNs to 50 mg each. hoping to start ECT . seroquel 50 mg QHS scheduled for insomnia. Reason for continued inpatient stay Substantial Risk for: harm to self, harm to others, inability to function and rapid decompensation Time Spent With Patient Time: Total time managing care of this patient today __35__ minutes.
[2023-06-20] MEDS: Acetaminophen 325 MG TABLET 975 MG PO (15:45)
[2023-06-20] MEDS: Magnesium Hydrox/Alum Hydrox 30 ML ORAL.SUSP PO (15:45)
[2023-06-20 21:00] VITALS: BP 112/66; PULSE 76; RESP 15; TEMP 36.4; O2SAT 96
[2023-06-20] MEDS: Prazosin HCL 1 MG CAPSULE 4 MG PO (21:05)
[2023-06-20] MEDS: QUEtiapine Fumarate 50 MG TABLET PO (21:06)
[2023-06-21] MEDS: Acetaminophen 325 MG TABLET 975 MG PO (01:44)
[2023-06-21] MEDS: QUEtiapine Fumarate 50 MG TABLET PO ×3 (01:44→23:18)
[2023-06-21] MEDS: hydrOXYzine HCL 50 MG TABLET PO ×3 (01:44→23:17)
--- NOTE | 2023-06-21 01:47 | PC.NURSE ---
Keke was given Seroquel PO prn for insomnia, Atarax PO prn for moderate anxiety, and Tylenol PO prn for headache 5/10
[2023-06-21] MEDS: LORazepam 0.5 MG TABLET PO ×2 (05:03→14:10)
[2023-06-21 07:40] VITALS: BP 123/70; PULSE 60; RESP 16; TEMP 36.4; O2SAT 96
[2023-06-21] MEDS: Simethicone 80 MG TAB.CHEW PO ×4 (09:22→21:03)
[2023-06-21] MEDS: FLUoxetine HCl 20 MG CAPSULE 80 MG PO (09:22)
[2023-06-21] MEDS: Multivitamin TABLET 1 TAB PO (09:24)
[2023-06-21] MEDS: Magnesium Oxide 400 MG TABLET PO (09:24)
[2023-06-21] MEDS: busPIRone HCl 10 MG TABLET PO (09:24)
[2023-06-21] MEDS: HaloperidoL 5 MG TABLET PO ×4 (09:25→23:17)
[2023-06-21] MEDS: Topiramate 25 MG TABLET PO (09:25)
--- NOTE | 2023-06-21 09:56 | PC.NURSE ---
Patient requested BP be taken, reports discomfort with radiation down L arm. No diaphoresis. Dr Jackson notified will further assess patient.
[2023-06-21] MEDS: Ondansetron ODT 4 MG TAB.RAPDIS TRANSLINGU (14:10)
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
[2023-06-21 21:00] VITALS: BP 112/75; PULSE 89; RESP 16; TEMP 36.6; O2SAT 95
[2023-06-21] MEDS: Prazosin HCL 1 MG CAPSULE 4 MG PO (21:02)
[2023-06-22] VITALS (12 sets, daily range): BP systolic 112–169; BP diastolic 57–88; PULSE 61–74; RESP 14–18; TEMP 36.3–37.4; O2SAT 93–98
--- NOTE | 2023-06-22 09:41 | HO.ANESPROP2 ---
[facility] Active Problems Active Problems: All Active Problems (Updated 06/17/23 @ 20:31 by Ulises Jackson MD) Cannabis use with anxiety disorder (Acute) Cocaine use disorder in remission (Acute) Chronic post-traumatic stress disorder (PTSD) (Acute) Major depressive disorder, recurrent episode (Acute) Pre-op evaluation (Acute) Medical clearance for psychiatric admission (Acute) Past Medical History Medical History (Updated 06/17/23 @ 20:31 by Ulises Jackson MD) Chronic low back pain Fibromyalgia Migraine Family History Family history of problems with anesthesia: No Surgical History History of Problems with Anesthesia: No Social History Social History Household Members: None Housing: Apartment Do you presently have visiting nurse or other home services: Yes ([employer]AMP [employer]EL[employer], Homemaker) Patient Tobacco Use Status: Never used Tobacco Smoked in Last 30 Days: No e-Cigarette/Vaping Use: Never Used Patient Interested in Nicotine Replacement: No Patient Given Instructions on How to Stop Smoking: No Use of substances other than those prescribed or required for medical reasons: Yes Substance Use Type: Marijuana Substance Use Frequency: Daily Last Used Substance: Just Prior to Admission Last Used Substance Other:: once joint a day Currently Displaying Signs/Symptoms of Drug Intoxication Withdrawal: No Any prior treatment program specific to substance use: No Have you been hit, kicked, punched, or otherwise hurt by someone within the past year? If so, by whom?: No Do you feel safe in your current relationship?: No Current Relationship Is there a partner from a previous relationship who is making you feel unsafe now?: No Are you made to feel afraid or neglected: No Advance Directives: No Advance Directives Information Provided: No Do you have thoughts of harming others: None Do you have a plan to hurt others: No Plan Recently lost weight without trying: No How much weight loss: Not applicable Eating poorly because of decreased appetite: No Nutrition screen score: 0 Nutrition Risks: No Nutritional Risk Patient : No : No Poor oral hygiene: No service: No Sexual orientation: Don't Know Meds Allergies Allergy/AdvReac Type Severity Reaction Status Date / Time lithium Allergy Unknown Unknown Verified 06/16/23 21:49 metformin Allergy Unknown Unknown Verified 06/16/23 21:49 NSAIDS (Non-Steroidal Allergy Unknown Unknown Verified 06/16/23 21:49 Anti-Inflamma propoxyphene Allergy Unknown Unknown Verified 06/16/23 21:49 sulfamethoxazole Allergy Unknown Unknown Verified 06/16/23 21:49 trimethoprim Allergy Unknown Unknown Verified 06/16/23 21:49 duloxetine AdvReac Unknown Nausea Verified 06/17/23 02:58 oxcarbazepine AdvReac Unknown Unknown Verified 06/16/23 21:49 Active Medications: Current Medications Acetaminophen (Acetaminophen 325 Mg Tablet) 975 mg PO Q6H PRN PRN Reason: moderate pain Last Admin: 06/21/23 01:44 Dose: 975 mg Al Hydroxide/Mg Hydroxide (Magnesium Hydrox/Alum Hydrox 30 Ml Oral.Susp) 30 ml PO Q6H PRN PRN Reason: Heartburn/Nausea Last Admin: 06/20/23 15:45 Dose: 30 ml Benzocaine (Throat Lozenge, Medicated Lozenge) 1 lozenge MUCOUS MEM Q2H PRN PRN Reason: Sore Throat Last Admin: 06/18/23 19:29 Dose: 1 lozenge Buspirone HCl (Buspirone Hcl 10 Mg Tablet) 10 mg PO DAILY [facility] Last Admin: 06/21/23 09:24 Dose: 10 mg Fluoxetine HCl (Fluoxetine Hcl 20 Mg Capsule) 80 mg PO DAILY [facility] Last Admin: 06/21/23 09:22 Dose: 80 mg Fluticasone Propionate (Fluticasone Propionate Nasal 16 Gm [place]) 1 spray NOSTRIL-B BID PRN PRN Reason: Nasal Congestion Haloperidol (Haloperidol 5 Mg Tablet) 5 mg PO Q4H PRN PRN Reason: agitation Last Admin: 06/21/23 23:17 Dose: 5 mg Hydroxyzine HCl (Hydroxyzine Hcl 50 Mg Tablet) 50 mg PO Q6H PRN PRN Reason: Anxiety Last Admin: 06/21/23 23:17 Dose: 50 mg Lactated Ringer's (Lr) 1,000 mls @ 50 mls/hr IVCONT .Q20H [facility] Lidocaine (Lidocaine 4 % Patch Adh..Patch) 1 patch TRANSDERMA DAILY PRN; Protocol PRN Reason: sternal pain Last Admin: 06/20/23 12:16 Dose: 1 patch Lorazepam (Lorazepam 0.5 Mg Tablet) 0.5 mg PO TID PRN PRN Reason: Anxiety Last Admin: 06/21/23 14:10 Dose: 0.5 mg Magnesium Hydroxide (Milk Of Magnesia 30 Ml Oral.Susp) 30 ml PO DAILY PRN PRN Reason: Constipation Magnesium Oxide (Magnesium Oxide 400 Mg Tablet) 400 mg PO DAILY [facility] Last Admin: 06/21/23 09:24 Dose: 400 mg Multivitamins/Vitamin C (Multivitamin Tablet) 1 tab PO DAILY [facility] Last Admin: 06/21/23 09:24 Dose: 1 tab Ondansetron HCl (Ondansetron Odt 4 Mg Tab.Rapdis) 4 mg TRANSLINGU Q6H PRN PRN Reason: Nausea and Vomiting Last Admin: 06/21/23 14:10 Dose: 4 mg Prazosin HCl (Prazosin Hcl 1 Mg Capsule) 4 mg PO BEDTIME ISAURO; Protocol Last Admin: 06/21/23 21:02 Dose: 4 mg Quetiapine Fumarate (Quetiapine Fumarate 50 Mg Tablet) 50 mg PO BEDTIME [facility]O Last Admin: 06/21/23 21:03 Dose: 50 mg Quetiapine Fumarate (Quetiapine Fumarate 50 Mg Tablet) 50 mg PO BEDTIME PRN PRN Reason: insomnia Last Admin: 06/21/23 23:18 Dose: 50 mg Simethicone (Simethicone 80 Mg Tab.Chew) 80 mg PO QIDWMHS [facility] Last Admin: 06/21/23 21:03 Dose: 80 mg Sumatriptan Succinate (Sumatriptan Succinate 100 Mg Tablet) 100 mg PO DAILY MRX1 PRN PRN Reason: Migraine Headache Last Admin: 06/19/23 14:04 Dose: 100 mg Trazodone HCl (Trazodone Hcl 50 Mg Tablet) 50 mg PO BEDTIME MRX1 PRN PRN Reason: Insomnia Home Medications Medication Instructions Recorded Confirmed Last Taken Type buspirone 10 mg tablet 10 mg PO TID 06/17/23 06/17/23 06/16/23 23:45 History cholecalciferol (vitamin D3) 50 50 mcg PO DAILY 06/17/23 06/17/23 Unknown History mcg (2,000 unit) tablet (Vitamin D3) fluoxetine 80 mg PO DAILY 06/17/23 06/17/23 06/16/23 09:02 History liraglutide 0.6 mg/0.1 mL (18 mg/3 1.8 mg subcut DAILY 06/17/23 06/17/23 Unknown History mL) subcutaneous pen injector (Victoza 3-Kyaw) lorazepam 0.5 mg tablet 0.5 mg PO TID PRN anxiety 06/17/23 06/17/23 Unknown History ondansetron 4 mg disintegrating 4 mg translingual Q8H PRN Nausea 06/17/23 06/17/23 Unknown History tablet quetiapine 50 mg tablet 50 mg PO BEDTIME 06/17/23 06/17/23 06/16/23 23:45 History sumatriptan succinate 100 mg tablet 100 mg PO 2XW 06/17/23 06/17/23 Unknown History tizanidine 4 mg tablet 4 mg PO Q12H PRN Muscle Pain 06/17/23 06/17/23 Unknown History topiramate 25 mg tablet 75 mg PO BID 06/17/23 06/17/23 06/16/23 23:45 History Exam Height,Weight and Vital Signs: Height 5 ft 6 in Weight 87.713 kg Last Vital Signs Temp 99.3 F 06/22/23 07:36 Pulse 61 06/22/23 07:36 Resp 16 06/22/23 07:36 BP 112/57 L 06/22/23 07:36 Pulse Ox 93 06/22/23 07:36 O2 Del Method Room Air 06/22/23 07:36 Pertinent Lab Results Pertinent Lab Results: Laboratory Tests 06/17/23 09:06 Sodium 141 Potassium 4.3 Chloride 112 H Carbon Dioxide 23 Anion Gap 10 L BUN 9 Creatinine 0.81 Estim Creat Clear Calc 91.6 Estimated GFR > 60 Fasting Glucose 82 Calcium 9.3 Total Bilirubin 0.2 AST 13 ALT 13 Alkaline Phosphatase 49 Total Protein 6.3 L Albumin 3.5 Triglycerides 64 Cholesterol 182 LDL Cholesterol, Calc 92 HDL Cholesterol 78 Airway Mallampati Class: II (venners all over) TM Dist: >3cm Neck ROM: Full Heart: rrr Lungs: cta Assessment and Plan Assessment Anesthesia Assessment: Anesthesia Plan Discussed and Chart Reviewed Final Anesthetic Review Family History of Problems with Anesthesia: No History of Problems with Anesthesia: No NPO: Yes ASA Class: III Final Preanesthetic Review: No Changes in Pt Med Stat, Meds/Allgs Chart Reviewed and Consent Obtained/Reviewed Patient Risk: Intermediate Procedure Risk: Intermediate Anesthetic Plan Anesthetic Plan: GA Disposition: Standard PACU
--- NOTE | 2023-06-22 10:27 | MHC.SHP ---
Pre-Procedural Eval Section A - 24 Hr Update-Section A only Date of Service: 06/22/23 The patient is an INPATIENT: Yes Changes since office visit: No Cold of Flu in the past 2 weeks, No New Medical Problems, No Changes in Medication and No Patient answered all questions The patient has been examined within 24 hours of the surgical procedure. The History & Physical has been completed within 30 days and I have reviewed it.: Yes Section B - Complete if H&P > 30 days Chief Complaint: PTSD and BPD Details of Present Illness: hx of suicidal ideas, admitted for exacerbation of depression, with irritability Relevant Family History (Specify if Yes): Yes Relevant Social History: Other (specify) (cannabis) Present Medications: see Short Stay Collaborative assessment Medical History: No relevant PMH History of Previous Operations: No relevant previous surgery Allergies: Allergies Allergy/AdvReac Type Severity Reaction Status Date / Time lithium Allergy Unknown Unknown Verified 06/16/23 21:49 metformin Allergy Unknown Unknown Verified 06/16/23 21:49 NSAIDS (Non-Steroidal Allergy Unknown Unknown Verified 06/16/23 21:49 Anti-Inflamma propoxyphene Allergy Unknown Unknown Verified 06/16/23 21:49 sulfamethoxazole Allergy Unknown Unknown Verified 06/16/23 21:49 trimethoprim Allergy Unknown Unknown Verified 06/16/23 21:49 duloxetine AdvReac Unknown Nausea Verified 06/17/23 02:58 oxcarbazepine AdvReac Unknown Unknown Verified 06/16/23 21:49 Review of Systems Sugical H&P ROS: Negative: Constitution, Cardiovascular, Respiratory, Neurological, Psychiatric, Hem-Onc, Allergic/Immunologic, Gastrointestinal, Genitourinary, Musculoskeletal, Integumentary, Endocrine and Eyes/Ears/Nose/Throat Exam Surgical H&P Exam: Normal: HEENT, Normal: Heart, Normal: Lungs, Normal: Extremities, Normal: Abdomen, Normal: Skin and Normal: Neurological Plan Diagnosis/Plan: Unchanged I have reviewed the history and physical and performed a pertinent physical examination on my patient. No changes have occurred unless specified. Time Spent With Patient Time: Total time managing care of this patient today __30__ minutes.
--- NOTE | 2023-06-22 10:44 | HO.ECTPROC ---
ECT Procedure Note Diagnosis/Treatment Date of Service: 06/22/23 Diagnosis: Bipolar disorder Current Treatment Number: 1 Treatment: Series Interval Clinical Notes: The patient reported depression with SI, able to contract for safety in the unit. She has never had ECT in the past. ECT done with the following parameter: -.25 100% with no complications. She had a motor seizure that it was noticeble, probably she would need a higher dose of Succynilcholine if she complaints of muscle aches. She woke up wall, slightly confused but no headache. She has hx of NSAIDS allergy so ketorolac was not given. Time: Total time managing care of this patient today ____ minutes. ECT Settings Device: THYMATRON DGx Electrode Placement: Right Unilateral Program/Pulse Width: 0.25 Energy Percent: 100 Seizure Duration By EEG (in seconds): 56 By Motor Observation (in seconds): 45 Medications Administration General Anesthetic: Etomidate (16) Muscle Relaxant: Succinylcholine (100) Ancillary Medications Anti-emetics: Zofran - Pre ECT Airway Management Airway Management: Bag Mask Ventilation Treatment Recommendations Electrode Placement: Right Unilateral Program/Pulse Width: 0.25 Energy Percent: 90 Notes: If the patient complaints of muscle aches next time, probably, she would need a higher dose of Succynil (120)? Pt Tolerated Procedure w/o Issue: Yes
[2023-06-22] MEDS: Acetaminophen 325 MG TABLET 975 MG PO (12:12)
[2023-06-22] MEDS: LORazepam 0.5 MG TABLET PO ×2 (12:13→21:31)
[2023-06-22] MEDS: FLUoxetine HCl 20 MG CAPSULE 80 MG PO (12:13)
[2023-06-22] MEDS: Multivitamin TABLET 1 TAB PO (12:13)
[2023-06-22] MEDS: Simethicone 80 MG TAB.CHEW PO ×2 (12:14→21:31)
[2023-06-22] MEDS: busPIRone HCl 10 MG TABLET PO (12:14)
[2023-06-22] MEDS: Magnesium Oxide 400 MG TABLET PO (12:14)
--- NOTE | 2023-06-22 14:42 | HO.PSYCHPN ---
Subjective Subjective Date of Service: 06/22/23 Reason For Visit: PTSD and BPD Interim History: up from ECT in afternoon. denies any problems with ECT. some PUGH, got tylenol. no requests or complaints, resting in bed for the afternoon. per staff, dep 4 anx 10. irritable, agitated. less labile. + meds. poor sleep. Mental Status Exam Mental Status Exam Narrative: adequately dressed and groomed, cooperative, no PMA/PMR. speech nml rate, amount, loudness, tone, latency. thoughts linear and logical. affect constricted, normo-intense, non-labile. mood not assessed. no SI/SIBI/HI/AVH expressed. Diagnostics Vital Signs (24Hr): Vital Signs - 24 hr 06/21/23 21:00 06/22/23 07:36 06/22/23 09:40 Temperature 97.9 F 99.3 F 97.9 F Pulse Rate 89 61 61 Respiratory Rate 16 16 18 Blood Pressure 112/75 112/57 L 116/82 Pulse Oximetry 95 93 96 Oxygen Delivery Method Room Air Room Air Room Air Oxygen Flow Rate 06/22/23 10:50 06/22/23 10:55 06/22/23 11:00 Temperature 97.5 F Pulse Rate 64 68 72 Respiratory Rate 14 16 15 Blood Pressure 169/73 H 133/70 131/82 Pulse Oximetry 97 96 96 Oxygen Delivery Method Nasal Cannula with ETCO2 Nasal Cannula with ETCO2 Nasal Cannula with ETCO2 Oxygen Flow Rate 2 2 2 06/22/23 11:05 06/22/23 11:20 06/22/23 11:35 Temperature 97.5 F Pulse Rate 72 69 70 Respiratory Rate 16 17 15 Blood Pressure 128/75 127/88 116/72 Pulse Oximetry 97 97 93 Oxygen Delivery Method Nasal Cannula with ETCO2 Nasal Cannula with ETCO2 Room Air Oxygen Flow Rate 2 2 06/22/23 11:50 06/22/23 12:00 06/22/23 12:31 Temperature 97.5 F 98.4 F 98.4 F Pulse Rate 74 63 63 Respiratory Rate 16 18 18 Blood Pressure 120/73 115/59 L 115/59 L Pulse Oximetry 96 96 96 Oxygen Delivery Method Room Air Room Air Oxygen Flow Rate BMI result Body Mass Index 31.2 Labs 06/17/23 09:06 Imaging Radiology Impressions: ITS Impressions Wrist X-Ray 06/20/23 08:40 IMPRESSION: Linear sclerotic focus distal metadiaphysis of the fifth metacarpal without cortical discontinuity/displacement. An occult fracture cannot be excluded. This corresponds to the marker placed at the site of trauma. Short interval follow-up may be considered. Medications Medications Current Medications Acetaminophen (Acetaminophen 325 Mg Tablet) 975 mg PO Q6H PRN PRN Reason: moderate pain Last Admin: 06/22/23 12:12 Dose: 975 mg Al Hydroxide/Mg Hydroxide (Magnesium Hydrox/Alum Hydrox 30 Ml Oral.Susp) 30 ml PO Q6H PRN PRN Reason: Heartburn/Nausea Last Admin: 06/20/23 15:45 Dose: 30 ml Benzocaine (Throat Lozenge, Medicated Lozenge) 1 lozenge MUCOUS MEM Q2H PRN PRN Reason: Sore Throat Last Admin: 06/18/23 19:29 Dose: 1 lozenge Buspirone HCl (Buspirone Hcl 10 Mg Tablet) 10 mg PO DAILY [facility] Last Admin: 06/22/23 12:14 Dose: 10 mg Fluoxetine HCl (Fluoxetine Hcl 20 Mg Capsule) 80 mg PO DAILY [facility] Last Admin: 06/22/23 12:13 Dose: 80 mg Fluticasone Propionate (Fluticasone Propionate Nasal 16 Gm [place]) 1 spray NOSTRIL-B BID PRN PRN Reason: Nasal Congestion Haloperidol (Haloperidol 5 Mg Tablet) 5 mg PO Q4H PRN PRN Reason: agitation Last Admin: 06/21/23 23:17 Dose: 5 mg Hydroxyzine HCl (Hydroxyzine Hcl 50 Mg Tablet) 50 mg PO Q6H PRN PRN Reason: Anxiety Last Admin: 06/21/23 23:17 Dose: 50 mg Lidocaine (Lidocaine 4 % Patch Adh..Patch) 1 patch TRANSDERMA DAILY PRN; Protocol PRN Reason: sternal pain Last Admin: 06/20/23 12:16 Dose: 1 patch Lorazepam (Lorazepam 0.5 Mg Tablet) 0.5 mg PO TID PRN PRN Reason: Anxiety Last Admin: 06/22/23 12:13 Dose: 0.5 mg Magnesium Hydroxide (Milk Of Magnesia 30 Ml Oral.Susp) 30 ml PO DAILY PRN PRN Reason: Constipation Magnesium Oxide (Magnesium Oxide 400 Mg Tablet) 400 mg PO DAILY [facility] Last Admin: 06/22/23 12:14 Dose: 400 mg Multivitamins/Vitamin C (Multivitamin Tablet) 1 tab PO DAILY [facility] Last Admin: 06/22/23 12:13 Dose: 1 tab Ondansetron HCl (Ondansetron Odt 4 Mg Tab.Rapdis) 4 mg TRANSLINGU Q6H PRN PRN Reason: Nausea and Vomiting Last Admin: 06/21/23 14:10 Dose: 4 mg Prazosin HCl (Prazosin Hcl 1 Mg Capsule) 4 mg PO BEDTIME [facility]; Protocol Last Admin: 06/21/23 21:02 Dose: 4 mg Quetiapine Fumarate (Quetiapine Fumarate 50 Mg Tablet) 50 mg PO BEDTIME [facility] Last Admin: 06/21/23 21:03 Dose: 50 mg Quetiapine Fumarate (Quetiapine Fumarate 50 Mg Tablet) 50 mg PO BEDTIME PRN PRN Reason: insomnia Last Admin: 06/21/23 23:18 Dose: 50 mg Simethicone (Simethicone 80 Mg Tab.Chew) 80 mg PO QIDWMHS [facility] Last Admin: 06/22/23 12:14 Dose: 80 mg Sumatriptan Succinate (Sumatriptan Succinate 100 Mg Tablet) 100 mg PO DAILY MRX1 PRN PRN Reason: Migraine Headache Last Admin: 06/19/23 14:04 Dose: 100 mg Trazodone HCl (Trazodone Hcl 50 Mg Tablet) 50 mg PO BEDTIME MRX1 PRN PRN Reason: Insomnia Allergies Allergies Allergy/AdvReac Type Severity Reaction Status Date / Time lithium Allergy Unknown Unknown Verified 06/16/23 21:49 metformin Allergy Unknown Unknown Verified 06/16/23 21:49 NSAIDS (Non-Steroidal Allergy Unknown Unknown Verified 06/16/23 21:49 Anti-Inflamma propoxyphene Allergy Unknown Unknown Verified 06/16/23 21:49 sulfamethoxazole Allergy Unknown Unknown Verified 06/16/23 21:49 trimethoprim Allergy Unknown Unknown Verified 06/16/23 21:49 duloxetine AdvReac Unknown Nausea Verified 06/17/23 02:58 oxcarbazepine AdvReac Unknown Unknown Verified 06/16/23 21:49 Assessment & Plan Assessment & Plan (1) Major depressive disorder, recurrent episode: Status: Acute Code(s): F33.9 - Major depressive disorder, recurrent, unspecified (2) Chronic post-traumatic stress disorder (PTSD): Status: Acute Code(s): F43.12 - Post-traumatic stress disorder, chronic Plan Pt is a 52-year-old female with a PMH significant for?fibromyalgia, migraines, chronic lower back pain, borderline personality trait, PTSD, and depression who is admitted to [facility] unit for increased depression and suicide attempt by overdosing on Ativan, Tylenol, and tizanidine. Patient was found slumped over and unresponsive at a hotel desk. Given multiple doses intranasal and IV Narcan with little change. Was given [id number] ventilation on route to ED where she was subsequently intubated for airway protection. Was eventually extubated and started on Unasyn for suspected aspiration. Medical consult for admission H&P and ECT clearance. Mood disorder Plan as per Psychiatry ECT clearance EKG pending Otherwise there are no obvious contraindications to the planned procedure Coarse crackles on auscultation Likely secondary to aspiration from overdose Continue Augmentin Abdominal cramping/discomfort, nausea Will give Gas-X Milk of magnesia and or Colace if constipation returns Ondansetron p.r.n. nausea Migraines Continue topiramate, sumatriptan Chronic lower back pain Continue tizanidine Will follow until EKG is completed. 06/16: continue most of outpatient regimen, including buspar, prozac, ativan, prozazc, seroquel. taper and DC topamax as not presently indicated and as relatively contraindicated for ECT. she had been taking it for cocaine cravings, and she is no longer substantially concerned about cocaine use. pt uses victoza daily SQ injections; she does not have medication with her and it is NF at [facility] [place]. said medication will be held until discharge. continue bactrim DS BID for 3 days for aspiration PNA. consult for medical clearance for ECT and ECT consult to Dr Marie. 06/18/23 - ok prn tylenol- lfts ok and tyl lvl 06/14 less 15 -CTP with pending ECT for depression/si 06/19/23 will be npo tonight in hopes of add on for ECT tomorrow 06/19: outburst due to not having expected ECT this morning. consult verbally communicated to yasmine. medically cleared for ECT. increase prazosin to 4 mg QHS for nightmares and insomnia in PTSD. increase daytime hydroxyzine PRNs to 50 mg each. hoping to start ECT weds. seroquel 50 mg QHS scheduled for insomnia. 06/20: assessed by yasmine for ECT, accepted to start tomorrow. F/U with raymond re xray and flatulence mgmt. 06/21: s/p ECT #1 today. no complications. scheduled simethicone. recheck wrist xray. otherwise continue current mgmt. Reason for continued inpatient stay Substantial Risk for: harm to self, inability to function and rapid decompensation Time Spent With Patient Time: Total time managing care of this patient today __35__ minutes.
--- NOTE | 2023-06-22 16:09 | PC.NURSE ---
Pt refused x ray, provider aware
[2023-06-22] MEDS: Prazosin HCL 1 MG CAPSULE 4 MG PO (21:30)
[2023-06-22] MEDS: HaloperidoL 5 MG TABLET PO (21:31)
[2023-06-22] MEDS: QUEtiapine Fumarate 50 MG TABLET PO (21:31)
[2023-06-23] MEDS: Acetaminophen 325 MG TABLET 975 MG PO ×2 (02:50→10:46)
[2023-06-23] MEDS: hydrOXYzine HCL 50 MG TABLET PO (02:50)
[2023-06-23 06:00] VITALS: BP 110/69; PULSE 69; RESP 12; TEMP 36.8; O2SAT 95
[2023-06-23] MEDS: FLUoxetine HCl 20 MG CAPSULE 80 MG PO (08:28)
[2023-06-23] MEDS: Multivitamin TABLET 1 TAB PO (08:30)
[2023-06-23] MEDS: Magnesium Oxide 400 MG TABLET PO (08:31)
[2023-06-23] MEDS: busPIRone HCl 10 MG TABLET PO (08:32)
[2023-06-23] MEDS: Simethicone 80 MG TAB.CHEW PO ×3 (08:32→21:03)
[2023-06-23] MEDS: HaloperidoL 5 MG TABLET PO (08:49)
[2023-06-23] MEDS: LORazepam 0.5 MG TABLET PO (14:04)
--- NOTE | 2023-06-23 15:23 | P.PNPSI_ITS ---
Subjective Subjective Date of Service: 06/23/23 Reason For Visit: PTSD and BPD Interim History: feeling dramatically improved post first ECT. a fog has been lifted from my eyes. sleep remains an issue, interested in increasing prazosin to 5 mg QHS. per staff, flat, withdrawn. not attending groups. refusing xray. lots of PRNs. social with roommate. slept about 6 hours. Mental Status Exam Mental Status Exam Narrative: adequately dressed and groomed, cooperative, no PMA/PMR. speech nml rate, amount, loudness, tone, latency. thoughts linear and logical. affect full range, normo-intense, non-labile. mood much improved. no SI/SIBI/HI/AVH expressed. Diagnostics Vital Signs (24Hr): Vital Signs - 24 hr 06/22/23 21:00 06/23/23 06:00 Temperature 97.4 F 98.3 F Pulse Rate 65 69 Respiratory Rate 18 12 Blood Pressure 136/74 110/69 Pulse Oximetry 98 95 Oxygen Delivery Method Room Air Room Air BMI result Body Mass Index 31.2 Labs 06/17/23 09:06 Imaging Radiology Impressions: ITS Impressions Wrist X-Ray 06/20/23 08:40 IMPRESSION: Linear sclerotic focus distal metadiaphysis of the fifth metacarpal without cortical discontinuity/displacement. An occult fracture cannot be excluded. This corresponds to the marker placed at the site of trauma. Short interval follow-up may be considered. Medications Medications Current Medications Acetaminophen (Acetaminophen 325 Mg Tablet) 975 mg PO Q6H PRN PRN Reason: moderate pain Last Admin: 06/23/23 10:46 Dose: 975 mg Al Hydroxide/Mg Hydroxide (Magnesium Hydrox/Alum Hydrox 30 Ml Oral.Susp) 30 ml PO Q6H PRN PRN Reason: Heartburn/Nausea Last Admin: 06/20/23 15:45 Dose: 30 ml Benzocaine (Throat Lozenge, Medicated Lozenge) 1 lozenge MUCOUS MEM Q2H PRN PRN Reason: Sore Throat Last Admin: 06/18/23 19:29 Dose: 1 lozenge Buspirone HCl (Buspirone Hcl 10 Mg Tablet) 10 mg PO DAILY [facility] Last Admin: 06/23/23 08:32 Dose: 10 mg Fluoxetine HCl (Fluoxetine Hcl 20 Mg Capsule) 80 mg PO DAILY [facility] Last Admin: 06/23/23 08:28 Dose: 80 mg Fluticasone Propionate (Fluticasone Propionate Nasal 16 Gm [place]) 1 spray NOSTRIL-B BID PRN PRN Reason: Nasal Congestion Haloperidol (Haloperidol 5 Mg Tablet) 5 mg PO Q4H PRN PRN Reason: agitation Last Admin: 06/23/23 08:49 Dose: 5 mg Hydroxyzine HCl (Hydroxyzine Hcl 50 Mg Tablet) 50 mg PO Q6H PRN PRN Reason: Anxiety Last Admin: 06/23/23 02:50 Dose: 50 mg Lidocaine (Lidocaine 4 % Patch Adh..Patch) 1 patch TRANSDERMA DAILY PRN; Protocol PRN Reason: sternal pain Last Admin: 06/20/23 12:16 Dose: 1 patch Lorazepam (Lorazepam 0.5 Mg Tablet) 0.5 mg PO TID PRN PRN Reason: Anxiety Last Admin: 06/23/23 14:04 Dose: 0.5 mg Magnesium Hydroxide (Milk Of Magnesia 30 Ml Oral.Susp) 30 ml PO DAILY PRN PRN Reason: Constipation Magnesium Oxide (Magnesium Oxide 400 Mg Tablet) 400 mg PO DAILY [facility] Last Admin: 06/23/23 08:31 Dose: 400 mg Multivitamins/Vitamin C (Multivitamin Tablet) 1 tab PO DAILY [facility] Last Admin: 06/23/23 08:30 Dose: 1 tab Ondansetron HCl (Ondansetron Odt 4 Mg Tab.Rapdis) 4 mg TRANSLINGU Q6H PRN PRN Reason: Nausea and Vomiting Last Admin: 06/21/23 14:10 Dose: 4 mg Prazosin HCl (Prazosin Hcl 5 Mg Capsule) 5 mg PO BEDTIME [facility]; Protocol Quetiapine Fumarate (Quetiapine Fumarate 50 Mg Tablet) 50 mg PO BEDTIME [facility] Last Admin: 06/22/23 21:31 Dose: 50 mg Quetiapine Fumarate (Quetiapine Fumarate 50 Mg Tablet) 50 mg PO BEDTIME PRN PRN Reason: insomnia Last Admin: 06/21/23 23:18 Dose: 50 mg Simethicone (Simethicone 80 Mg Tab.Chew) 80 mg PO QIDWMHS [facility] Last Admin: 06/23/23 12:40 Dose: Not Given Sumatriptan Succinate (Sumatriptan Succinate 100 Mg Tablet) 100 mg PO DAILY MRX1 PRN PRN Reason: Migraine Headache Last Admin: 06/19/23 14:04 Dose: 100 mg Trazodone HCl (Trazodone Hcl 50 Mg Tablet) 50 mg PO BEDTIME MRX1 PRN PRN Reason: Insomnia Allergies Allergies Allergy/AdvReac Type Severity Reaction Status Date / Time lithium Allergy Unknown Unknown Verified 06/16/23 21:49 metformin Allergy Unknown Unknown Verified 06/16/23 21:49 NSAIDS (Non-Steroidal Allergy Unknown Unknown Verified 06/16/23 21:49 Anti-Inflamma propoxyphene Allergy Unknown Unknown Verified 06/16/23 21:49 sulfamethoxazole Allergy Unknown Unknown Verified 06/16/23 21:49 trimethoprim Allergy Unknown Unknown Verified 06/16/23 21:49 duloxetine AdvReac Unknown Nausea Verified 06/17/23 02:58 oxcarbazepine AdvReac Unknown Unknown Verified 06/16/23 21:49 Assessment & Plan Assessment & Plan (1) Major depressive disorder, recurrent episode: Status: Acute Code(s): F33.9 - Major depressive disorder, recurrent, unspecified (2) Chronic post-traumatic stress disorder (PTSD): Status: Acute Code(s): F43.12 - Post-traumatic stress disorder, chronic Plan Pt is a 52-year-old female with a PMH significant for?fibromyalgia, migraines, chronic lower back pain, borderline personality trait, PTSD, and depression who is admitted to [facility] unit for increased depression and suicide attempt by overdosing on Ativan, Tylenol, and tizanidine. Patient was found slumped over and unresponsive at a hotel desk. Given multiple doses intranasal and IV Narcan with little change. Was given [id number] ventilation on route to ED where she was subsequently intubated for airway protection. Was eventually extubated and started on Unasyn for suspected aspiration. Medical consult for admission H&P and ECT clearance. Mood disorder Plan as per Psychiatry ECT clearance EKG pending Otherwise there are no obvious contraindications to the planned procedure Coarse crackles on auscultation Likely secondary to aspiration from overdose Continue Augmentin Abdominal cramping/discomfort, nausea Will give Gas-X Milk of magnesia and or Colace if constipation returns Ondansetron p.r.n. nausea Migraines Continue topiramate, sumatriptan Chronic lower back pain Continue tizanidine Will follow until EKG is completed. 06/16: continue most of outpatient regimen, including buspar, prozac, ativan, prozazc, seroquel. taper and DC topamax as not presently indicated and as relatively contraindicated for ECT. she had been taking it for cocaine cravings, and she is no longer substantially concerned about cocaine use. pt uses victoza daily SQ injections; she does not have medication with her and it is NF at [facility]. said medication will be held until discharge. continue bactrim DS BID for 3 days for aspiration PNA. consult for medical clearance for ECT and ECT consult to Dr Marie. 06/18/23 - ok prn tylenol- lfts ok and tyl lvl 06/14 less 15 -CTP with pending ECT for depression/si 06/19/23 will be npo tonight in hopes of add on for ECT tomorrow 06/19: outburst due to not having expected ECT this morning. consult verbally communicated to yasmine. medically cleared for ECT. increase prazosin to 4 mg QHS for nightmares and insomnia in PTSD. increase daytime hydroxyzine PRNs to 50 mg each. hoping to start ECT . seroquel 50 mg QHS scheduled for insomnia. 06/20: assessed by yasmine for ECT, accepted to start tomorrow. F/U with raymond re xray and flatulence mgmt. 06/21: s/p ECT #1 today. no complications. scheduled simethicone. recheck wrist xray. otherwise continue current mgmt. 06/22: not interested in xray, wrist feeling much better. increase prazosin to 5 mg QHS for sleep/nightmares. ECT #2 tomorrow. pt feeling very dramatically improved since ECT #1. Reason for continued inpatient stay Substantial Risk for: harm to self, inability to function and rapid decompensation Time Spent With Patient Time: Total time managing care of this patient today __25__ minutes.
[2023-06-23 20:37] VITALS: BP 109/66; PULSE 68; RESP 16; TEMP 36.9; O2SAT 95
[2023-06-23] MEDS: Prazosin HCL 5 MG CAPSULE PO (21:03)
[2023-06-23] MEDS: QUEtiapine Fumarate 50 MG TABLET PO (21:04)
[2023-06-24] VITALS (13 sets, daily range): BP systolic 117–155; BP diastolic 71–94; PULSE 66–101; RESP 15–20; TEMP 35.9–37.1; O2SAT 90–97; BMI 31.2
[2023-06-24] MEDS: busPIRone HCl 10 MG TABLET PO (08:49)
[2023-06-24] MEDS: Magnesium Oxide 400 MG TABLET PO (08:49)
[2023-06-24] MEDS: Simethicone 80 MG TAB.CHEW PO ×2 (08:49→21:04)
[2023-06-24] MEDS: hydrOXYzine HCL 50 MG TABLET PO ×2 (08:49→15:46)
[2023-06-24] MEDS: FLUoxetine HCl 20 MG CAPSULE 80 MG PO (08:49)
[2023-06-24] MEDS: Multivitamin TABLET 1 TAB PO (08:50)
--- NOTE | 2023-06-24 12:56 | HO.PSYCHPN ---
Subjective Subjective Date of Service: 06/24/23 Reason For Visit: PTSD and BPD Interim History: calm, cooperative. awaiting ECT. c/o insomnia/nightmares. denies s/e from prazosin, agrees to increase dose to 6 mg QHS. per staff, taking meds. not attending groups. no SI/HI/AVH. Mental Status Exam Mental Status Exam Narrative: adequately dressed and groomed, cooperative, no PMA/PMR. speech nml rate, amount, loudness, tone, latency. thoughts linear and logical. affect full range, normo-intense, non-labile. mood much improved. no SI/SIBI/HI/AVH expressed. Diagnostics Vital Signs (24Hr): Vital Signs - 24 hr 06/23/23 20:37 06/24/23 06:00 Temperature 98.4 F 98.2 F Pulse Rate 68 81 Respiratory Rate 16 16 Blood Pressure 109/66 130/80 Pulse Oximetry 95 97 Oxygen Delivery Method Room Air Room Air BMI result Body Mass Index 31.2 Labs 06/17/23 09:06 Imaging Radiology Impressions: ITS Impressions Wrist X-Ray 06/20/23 08:40 IMPRESSION: Linear sclerotic focus distal metadiaphysis of the fifth metacarpal without cortical discontinuity/displacement. An occult fracture cannot be excluded. This corresponds to the marker placed at the site of trauma. Short interval follow-up may be considered. Medications Medications Current Medications Acetaminophen (Acetaminophen 325 Mg Tablet) 975 mg PO Q6H PRN PRN Reason: moderate pain Last Admin: 06/23/23 10:46 Dose: 975 mg Al Hydroxide/Mg Hydroxide (Magnesium Hydrox/Alum Hydrox 30 Ml Oral.Susp) 30 ml PO Q6H PRN PRN Reason: Heartburn/Nausea Last Admin: 06/20/23 15:45 Dose: 30 ml Benzocaine (Throat Lozenge, Medicated Lozenge) 1 lozenge MUCOUS MEM Q2H PRN PRN Reason: Sore Throat Last Admin: 06/18/23 19:29 Dose: 1 lozenge Buspirone HCl (Buspirone Hcl 10 Mg Tablet) 10 mg PO DAILY ISAURO Last Admin: 06/24/23 08:49 Dose: 10 mg Fluoxetine HCl (Fluoxetine Hcl 20 Mg Capsule) 80 mg PO DAILY ISAURO Last Admin: 06/24/23 08:49 Dose: 80 mg Fluticasone Propionate (Fluticasone Propionate Nasal 16 Gm [place]) 1 spray NOSTRIL-B BID PRN PRN Reason: Nasal Congestion Haloperidol (Haloperidol 5 Mg Tablet) 5 mg PO Q4H PRN PRN Reason: agitation Last Admin: 06/23/23 08:49 Dose: 5 mg Hydroxyzine HCl (Hydroxyzine Hcl 50 Mg Tablet) 50 mg PO Q6H PRN PRN Reason: Anxiety Last Admin: 06/24/23 08:49 Dose: 50 mg Lidocaine (Lidocaine 4 % Patch Adh..Patch) 1 patch TRANSDERMA DAILY PRN; Protocol PRN Reason: sternal pain Last Admin: 06/20/23 12:16 Dose: 1 patch Lorazepam (Lorazepam 0.5 Mg Tablet) 0.5 mg PO TID PRN PRN Reason: Anxiety Last Admin: 06/23/23 14:04 Dose: 0.5 mg Magnesium Hydroxide (Milk Of Magnesia 30 Ml Oral.Susp) 30 ml PO DAILY PRN PRN Reason: Constipation Magnesium Oxide (Magnesium Oxide 400 Mg Tablet) 400 mg PO DAILY ISAURO Last Admin: 06/24/23 08:49 Dose: 400 mg Multivitamins/Vitamin C (Multivitamin Tablet) 1 tab PO DAILY ISAURO Last Admin: 06/24/23 08:50 Dose: 1 tab Ondansetron HCl (Ondansetron Odt 4 Mg Tab.Rapdis) 4 mg TRANSLINGU Q6H PRN PRN Reason: Nausea and Vomiting Last Admin: 06/21/23 14:10 Dose: 4 mg Prazosin HCl (Prazosin Hcl 1 Mg Capsule) 6 mg PO BEDTIME ISAURO; Protocol Quetiapine Fumarate (Quetiapine Fumarate 50 Mg Tablet) 50 mg PO BEDTIME ISAURO Last Admin: 06/23/23 21:04 Dose: 50 mg Quetiapine Fumarate (Quetiapine Fumarate 50 Mg Tablet) 50 mg PO BEDTIME PRN PRN Reason: insomnia Last Admin: 06/21/23 23:18 Dose: 50 mg Simethicone (Simethicone 80 Mg Tab.Chew) 80 mg PO QIDWMHS ISAURO Last Admin: 06/24/23 08:49 Dose: 80 mg Sumatriptan Succinate (Sumatriptan Succinate 100 Mg Tablet) 100 mg PO DAILY MRX1 PRN PRN Reason: Migraine Headache Last Admin: 06/19/23 14:04 Dose: 100 mg Trazodone HCl (Trazodone Hcl 50 Mg Tablet) 50 mg PO BEDTIME MRX1 PRN PRN Reason: Insomnia Allergies Allergies Allergy/AdvReac Type Severity Reaction Status Date / Time lithium Allergy Unknown Unknown Verified 06/16/23 21:49 metformin Allergy Unknown Unknown Verified 06/16/23 21:49 NSAIDS (Non-Steroidal Allergy Unknown Unknown Verified 06/16/23 21:49 Anti-Inflamma propoxyphene Allergy Unknown Unknown Verified 06/16/23 21:49 sulfamethoxazole Allergy Unknown Unknown Verified 06/16/23 21:49 trimethoprim Allergy Unknown Unknown Verified 06/16/23 21:49 duloxetine AdvReac Unknown Nausea Verified 06/17/23 02:58 oxcarbazepine AdvReac Unknown Unknown Verified 06/16/23 21:49 Assessment & Plan Assessment & Plan (1) Major depressive disorder, recurrent episode: Status: Acute Code(s): F33.9 - Major depressive disorder, recurrent, unspecified (2) Chronic post-traumatic stress disorder (PTSD): Status: Acute Code(s): F43.12 - Post-traumatic stress disorder, chronic Plan Pt is a 52-year-old female with a PMH significant for?fibromyalgia, migraines, chronic lower back pain, borderline personality trait, PTSD, and depression who is admitted to [facility] psychiatry unit for increased depression and suicide attempt by overdosing on Ativan, Tylenol, and tizanidine. Patient was found slumped over and unresponsive at a hotel desk. Given multiple doses intranasal and IV Narcan with little change. Was given [id number] ventilation on route to ED where she was subsequently intubated for airway protection. Was eventually extubated and started on Unasyn for suspected aspiration. Medical consult for admission H&P and ECT clearance. Mood disorder Plan as per Psychiatry ECT clearance EKG pending Otherwise there are no obvious contraindications to the planned procedure Coarse crackles on auscultation Likely secondary to aspiration from overdose Continue Augmentin Abdominal cramping/discomfort, nausea Will give Gas-X Milk of magnesia and or Colace if constipation returns Ondansetron p.r.n. nausea Migraines Continue topiramate, sumatriptan Chronic lower back pain Continue tizanidine Will follow until EKG is completed. 06/16: continue most of outpatient regimen, including buspar, prozac, ativan, prozazc, seroquel. taper and DC topamax as not presently indicated and as relatively contraindicated for ECT. she had been taking it for cocaine cravings, and she is no longer substantially concerned about cocaine use. pt uses victoza daily SQ injections; she does not have medication with her and it is NF at [facility]. said medication will be held until discharge. continue bactrim DS BID for 3 days for aspiration PNA. consult for medical clearance for ECT and ECT consult to Dr Marie. 06/18/23 - ok prn tylenol- lfts ok and tyl lvl 06/14 less 15 -CTP with pending ECT for depression/si 06/19/23 will be npo tonight in hopes of add on for ECT tomorrow 06/19: outburst due to not having expected ECT this morning. consult verbally communicated to yasmine. medically cleared for ECT. increase prazosin to 4 mg QHS for nightmares and insomnia in PTSD. increase daytime hydroxyzine PRNs to 50 mg each. hoping to start ECT . seroquel 50 mg QHS scheduled for insomnia. 06/20: assessed by yasmine for ECT, accepted to start tomorrow. F/U with [facility] re xray and flatulence mgmt. 06/21: s/p ECT #1 today. no complications. scheduled simethicone. recheck wrist xray. otherwise continue current mgmt. 06/22: not interested in xray, wrist feeling much better. increase prazosin to 5 mg QHS for sleep/nightmares. ECT #2 tomorrow. pt feeling very dramatically improved since ECT #1. 06/23: awaiting ECT #2 today. continues with improved mod but poor sleep/nightmares. increase prazosin to 6 mg QHS. Reason for continued inpatient stay Substantial Risk for: harm to self, inability to function and rapid decompensation Time Spent With Patient Time: Total time managing care of this patient today __25__ minutes.
--- NOTE | 2023-06-24 13:35 | P.CONAN_ITS ---
HPI - Anesthesia Eval Consult details Narrative: 52 yo female patient fir ECT PMFSH Active Problems Active Problems: All Active Problems Cannabis use with anxiety disorder (Acute) Cocaine use disorder in remission (Acute) Chronic post-traumatic stress disorder (PTSD) (Acute) Major depressive disorder, recurrent episode (Acute) Pre-op evaluation (Acute) Medical clearance for psychiatric admission (Acute) Past Medical History Medical History Chronic low back pain Fibromyalgia Migraine Family History Family history of problems with anesthesia: No Surgical History History of Problems with Anesthesia: No Social History Social History Household Members: None Housing: Apartment Do you presently have visiting nurse or other home services: Yes ([employer], [employer]) Patient Tobacco Use Status: Never used Tobacco Smoked in Last 30 Days: No e-Cigarette/Vaping Use: Never Used Patient Interested in Nicotine Replacement: No Patient Given Instructions on How to Stop Smoking: No Use of substances other than those prescribed or required for medical reasons: Yes Substance Use Type: Marijuana Substance Use Frequency: Daily Last Used Substance: Just Prior to Admission Last Used Substance Other:: once joint a day Currently Displaying Signs/Symptoms of Drug Intoxication Withdrawal: No Any prior treatment program specific to substance use: No Have you been hit, kicked, punched, or otherwise hurt by someone within the past year? If so, by whom?: No Do you feel safe in your current relationship?: No Current Relationship Is there a partner from a previous relationship who is making you feel unsafe now?: No Are you made to feel afraid or neglected: No Are you DNR?: No Advance Directives: No Advance Directives Information Provided: No Do you have thoughts of harming others: None Do you have a plan to hurt others: No Plan Recently lost weight without trying: No How much weight loss: Not applicable Eating poorly because of decreased appetite: No Nutrition screen score: 0 Nutrition Risks: No Nutritional Risk Patient : No : No Poor oral hygiene: No service: No Sexual orientation: Don't Know Meds Allergies Allergy/AdvReac Type Severity Reaction Status Date / Time lithium Allergy Unknown Unknown Verified 06/16/23 21:49 metformin Allergy Unknown Unknown Verified 06/16/23 21:49 NSAIDS (Non-Steroidal Allergy Unknown Unknown Verified 06/16/23 21:49 Anti-Inflamma propoxyphene Allergy Unknown Unknown Verified 06/16/23 21:49 sulfamethoxazole Allergy Unknown Unknown Verified 06/16/23 21:49 trimethoprim Allergy Unknown Unknown Verified 06/16/23 21:49 duloxetine AdvReac Unknown Nausea Verified 06/17/23 02:58 oxcarbazepine AdvReac Unknown Unknown Verified 06/16/23 21:49 Active Medications: Current Medications Acetaminophen (Acetaminophen 325 Mg Tablet) 975 mg PO Q6H PRN PRN Reason: moderate pain Last Admin: 06/23/23 10:46 Dose: 975 mg Al Hydroxide/Mg Hydroxide (Magnesium Hydrox/Alum Hydrox 30 Ml Oral.Susp) 30 ml PO Q6H PRN PRN Reason: Heartburn/Nausea Last Admin: 06/20/23 15:45 Dose: 30 ml Benzocaine (Throat Lozenge, Medicated Lozenge) 1 lozenge MUCOUS MEM Q2H PRN PRN Reason: Sore Throat Last Admin: 06/18/23 19:29 Dose: 1 lozenge Buspirone HCl (Buspirone Hcl 10 Mg Tablet) 10 mg PO DAILY ISAURO Last Admin: 06/24/23 08:49 Dose: 10 mg Fluoxetine HCl (Fluoxetine Hcl 20 Mg Capsule) 80 mg PO DAILY [facility] Last Admin: 06/24/23 08:49 Dose: 80 mg Fluticasone Propionate (Fluticasone Propionate Nasal 16 Gm [place]) 1 spray NOSTRIL-B BID PRN PRN Reason: Nasal Congestion Haloperidol (Haloperidol 5 Mg Tablet) 5 mg PO Q4H PRN PRN Reason: agitation Last Admin: 06/23/23 08:49 Dose: 5 mg Hydroxyzine HCl (Hydroxyzine Hcl 50 Mg Tablet) 50 mg PO Q6H PRN PRN Reason: Anxiety Last Admin: 06/24/23 08:49 Dose: 50 mg Lidocaine (Lidocaine 4 % Patch Adh..Patch) 1 patch TRANSDERMA DAILY PRN; Protocol PRN Reason: sternal pain Last Admin: 06/20/23 12:16 Dose: 1 patch Lorazepam (Lorazepam 0.5 Mg Tablet) 0.5 mg PO TID PRN PRN Reason: Anxiety Last Admin: 06/23/23 14:04 Dose: 0.5 mg Magnesium Hydroxide (Milk Of Magnesia 30 Ml Oral.Susp) 30 ml PO DAILY PRN PRN Reason: Constipation Magnesium Oxide (Magnesium Oxide 400 Mg Tablet) 400 mg PO DAILY [facility] Last Admin: 06/24/23 08:49 Dose: 400 mg Multivitamins/Vitamin C (Multivitamin Tablet) 1 tab PO DAILY ISAURO Last Admin: 06/24/23 08:50 Dose: 1 tab Ondansetron HCl (Ondansetron Odt 4 Mg Tab.Rapdis) 4 mg TRANSLINGU Q6H PRN PRN Reason: Nausea and Vomiting Last Admin: 06/21/23 14:10 Dose: 4 mg Prazosin HCl (Prazosin Hcl 1 Mg Capsule) 6 mg PO BEDTIME ISAURO; Protocol Quetiapine Fumarate (Quetiapine Fumarate 50 Mg Tablet) 50 mg PO BEDTIME ISAURO Last Admin: 06/23/23 21:04 Dose: 50 mg Quetiapine Fumarate (Quetiapine Fumarate 50 Mg Tablet) 50 mg PO BEDTIME PRN PRN Reason: insomnia Last Admin: 06/21/23 23:18 Dose: 50 mg Simethicone (Simethicone 80 Mg Tab.Chew) 80 mg PO QIDWMHS [facility] Last Admin: 06/24/23 08:49 Dose: 80 mg Sumatriptan Succinate (Sumatriptan Succinate 100 Mg Tablet) 100 mg PO DAILY MRX1 PRN PRN Reason: Migraine Headache Last Admin: 06/19/23 14:04 Dose: 100 mg Trazodone HCl (Trazodone Hcl 50 Mg Tablet) 50 mg PO BEDTIME MRX1 PRN PRN Reason: Insomnia Home Medications ?Medication ?Instructions ?Recorded ?Confirmed ?Last Taken ?Type buspirone 10 mg tablet 10 mg PO TID 06/17/23 06/17/23 06/16/23 23:45 History cholecalciferol (vitamin D3) 50 50 mcg PO DAILY 06/17/23 06/17/23 Unknown History mcg (2,000 unit) tablet (Vitamin D3) fluoxetine 80 mg PO DAILY 06/17/23 06/17/23 06/16/23 09:02 History liraglutide 0.6 mg/0.1 mL (18 mg/3 1.8 mg subcut DAILY 06/17/23 06/17/23 Unknown History mL) subcutaneous pen injector (Victoza 3-Kyaw) lorazepam 0.5 mg tablet 0.5 mg PO TID PRN anxiety 06/17/23 06/17/23 Unknown History ondansetron 4 mg disintegrating 4 mg translingual Q8H PRN Nausea 06/17/23 06/17/23 Unknown History tablet quetiapine 50 mg tablet 50 mg PO BEDTIME 06/17/23 06/17/23 06/16/23 23:45 History sumatriptan succinate 100 mg tablet 100 mg PO 2XW 06/17/23 06/17/23 Unknown History tizanidine 4 mg tablet 4 mg PO Q12H PRN Muscle Pain 06/17/23 06/17/23 Unknown History topiramate 25 mg tablet 75 mg PO BID 06/17/23 06/17/23 06/16/23 23:45 History Exam Height,Weight and Vital Signs: Height 5 ft 6 in Weight 87.713 kg Last Vital Signs Temp 96.6 F L 06/24/23 13:26 Pulse 66 06/24/23 13:26 Resp 16 06/24/23 13:26 BP 118/87 06/24/23 13:26 Pulse Ox 95 06/24/23 13:26 O2 Del Method Room Air 06/24/23 13:26 O2 Flow Rate 2 06/22/23 11:20 Pertinent Lab Results Pertinent Lab Results: Laboratory Tests 06/17/23 09:06 Sodium 141 Potassium 4.3 Chloride 112 H Carbon Dioxide 23 Anion Gap 10 L BUN 9 Creatinine 0.81 Estim Creat Clear Calc 91.6 Estimated GFR > 60 Fasting Glucose 82 Calcium 9.3 Total Bilirubin 0.2 AST 13 ALT 13 Alkaline Phosphatase 49 Total Protein 6.3 L Albumin 3.5 Triglycerides 64 Cholesterol 182 LDL Cholesterol, Calc 92 HDL Cholesterol 78 Airway Mallampati Class: II TM Dist: >3cm Neck ROM: Full Loose/Missing/Broken Teeth: Yes (Missing teeth top back right. Denies broken or loose teeth ) Heart: RRR Lungs: CTAB Assessment and Plan Assessment Anesthesia Assessment: Anesthesia Plan Discussed and Chart Reviewed Final Anesthetic Review Family History of Problems with Anesthesia: No History of Problems with Anesthesia: No NPO: Yes ASA Class: III Final Preanesthetic Review: No Changes in Pt Med Stat, Meds/Allgs Chart Reviewed, Consent Obtained/Reviewed and Anes Risks/Benef Reviewed Patient Risk: Intermediate Procedure Risk: Intermediate Assessment/Block/Sedation in SS: Assess/Block/Sedation-SS Anesthetic Plan Anesthetic Plan: GA Disposition: Standard PACU
--- NOTE | 2023-06-24 13:36 | MHC.SHP ---
Pre-Procedural Eval Section A - 24 Hr Update-Section A only Date of Service: 06/24/23 The patient is an INPATIENT: Yes Changes since office visit: Yes Changes in Medication and Yes Patient answered all questions; No Cold of Flu in the past 2 weeks and No New Medical Problems The patient has been examined within 24 hours of the surgical procedure. The History & Physical has been completed within 30 days and I have reviewed it.: Yes Section B - Complete if H&P > 30 days Chief Complaint: PTSD and BPD Allergies: Allergies Allergy/AdvReac Type Severity Reaction Status Date / Time lithium Allergy Unknown Unknown Verified 06/16/23 21:49 metformin Allergy Unknown Unknown Verified 06/16/23 21:49 NSAIDS (Non-Steroidal Allergy Unknown Unknown Verified 06/16/23 21:49 Anti-Inflamma propoxyphene Allergy Unknown Unknown Verified 06/16/23 21:49 sulfamethoxazole Allergy Unknown Unknown Verified 06/16/23 21:49 trimethoprim Allergy Unknown Unknown Verified 06/16/23 21:49 duloxetine AdvReac Unknown Nausea Verified 06/17/23 02:58 oxcarbazepine AdvReac Unknown Unknown Verified 06/16/23 21:49 Plan I have reviewed the history and physical and performed a pertinent physical examination on my patient. No changes have occurred unless specified. Time Spent With Patient Time: Total time managing care of this patient today ____ minutes.
[2023-06-24] MEDS: Acetaminophen 325 MG TABLET 975 MG PO (15:01)
[2023-06-24] MEDS: LORazepam 0.5 MG TABLET PO (15:46)
--- NOTE | 2023-06-24 21:02 | HO.ECTPROC ---
ECT Procedure Note Diagnosis/Treatment Date of Service: 06/24/23 Diagnosis: Major Depressive Disorder Previous ECT Date: 06/22/23 Current Treatment Number: 2 Treatment: Series Interval Clinical Notes: Patient tolerated 1st ECT well states she is feeling better no complaints of side effects the patient required 16 of etomidate +4 mg etomidate succinylcholine 100 mg plus 40 mg next treatment anesthesia recommends Robinul pretreatment she did have Robinul post treatment she was also given propofol 20 mg post treatment. Succinylcholine dose was not adequate and should be given in a bolus next treatment at least 140 mg Time: Total time managing care of this patient today _30___ minutes. ECT Settings Device: THYMATRON DGx Electrode Placement: Right Unilateral Program/Pulse Width: 0.25 Energy Percent: 100 Seizure Duration By EEG (in seconds): 49 Medications Administration General Anesthetic: Etomidate (16 plus 4) Muscle Relaxant: Succinylcholine (100 plus 40) Ancillary Medications Cardiovascular Medications: Glycopyrrolate Airway Management Airway Management: Bag Mask Ventilation Treatment Recommendations Notes: Continue ECT Anesthesia adjustments as noted above consider Brevital instead of etomidate
[2023-06-24] MEDS: Prazosin HCL 1 MG CAPSULE 6 MG PO (21:04)
[2023-06-24] MEDS: Throat Lozenge, Medicated LOZENGE 1 LOZENGE MUCOUS MEM (21:04)
[2023-06-24] MEDS: QUEtiapine Fumarate 50 MG TABLET PO ×2 (21:05)
[2023-06-24] MEDS: HaloperidoL 5 MG TABLET PO (21:05)
[2023-06-25] MEDS: hydrOXYzine HCL 50 MG TABLET PO ×2 (02:42→09:12)
[2023-06-25] MEDS: LORazepam 0.5 MG TABLET PO ×2 (02:42→14:21)
[2023-06-25 08:15] VITALS: BP 115/58; PULSE 73; RESP 16; TEMP 37.4; O2SAT 93
[2023-06-25] MEDS: Multivitamin TABLET 1 TAB PO (08:45)
[2023-06-25] MEDS: busPIRone HCl 10 MG TABLET PO (08:45)
[2023-06-25] MEDS: FLUoxetine HCl 20 MG CAPSULE 80 MG PO (08:45)
[2023-06-25] MEDS: Simethicone 80 MG TAB.CHEW PO ×3 (08:46→22:05)
[2023-06-25] MEDS: Magnesium Oxide 400 MG TABLET PO (08:46)
[2023-06-25] MEDS: Acetaminophen 325 MG TABLET 975 MG PO (09:11)
[2023-06-25] MEDS: HaloperidoL 5 MG TABLET PO ×3 (09:13→22:04)
--- NOTE | 2023-06-25 11:31 | P.PNPSI_ITS ---
Subjective Subjective Date of Service: 06/25/23 Reason For Visit: PTSD and BPD Subjective Notes: Conditional Voluntary Interim History: Met with patient. Discussed with Nursing. Appears to be slowly improving with ECT i.e. less guarded, less isolative. With ad writer reported that she was doing fine and had no questions or concerns. Preferred to speak in more depth tomorrow. Medication Compliance: Yes Side effects from medications: No Attending Groups: No Review of Systems Acute medical concerns: No Review of Systems Review of Systems nothing acute Mental Status Exam Mental Status Exam Narrative: in bed. Fair self-care. Organized. Affect restricted. Was limited engagement and preferred to speak in more depth tomorrow. No evidence of SI, HI or psychosis. Diagnostics Vital Signs (24Hr): Vital Signs - 24 hr 06/24/23 13:26 06/24/23 13:59 06/24/23 14:04 Temperature 96.6 F L 97.7 F Pulse Rate 66 85 95 Respiratory Rate 16 16 18 Blood Pressure 118/87 126/81 138/94 H Pulse Oximetry 95 96 93 Oxygen Delivery Method Room Air Nasal Cannula Nasal Cannula Oxygen Flow Rate 2 2 06/24/23 14:09 06/24/23 14:14 06/24/23 14:27 Temperature Pulse Rate 97 97 101 H Respiratory Rate 18 20 16 Blood Pressure 142/90 H 117/71 Pulse Oximetry 95 97 95 Oxygen Delivery Method Nasal Cannula Nasal Cannula Nasal Cannula Oxygen Flow Rate 3 3 2 06/24/23 14:31 06/24/23 14:42 06/24/23 14:57 Temperature 97.1 F Pulse Rate 90 76 Respiratory Rate 18 15 17 Blood Pressure 123/83 118/81 Pulse Oximetry 90 L 96 96 Oxygen Delivery Method Room Air Nasal Cannula Room Air Oxygen Flow Rate 2 06/24/23 15:31 06/24/23 15:33 06/24/23 21:00 Temperature 97.5 F 97.5 F 98.7 F Pulse Rate 78 78 71 Respiratory Rate 16 16 16 Blood Pressure 155/82 H 155/82 H 118/75 Pulse Oximetry 97 97 95 Oxygen Delivery Method Room Air Room Air Oxygen Flow Rate 06/25/23 08:15 Temperature 99.4 F Pulse Rate 73 Respiratory Rate 16 Blood Pressure 115/58 L Pulse Oximetry 93 Oxygen Delivery Method Room Air Oxygen Flow Rate BMI result Body Mass Index 31.2 Labs 06/17/23 09:06 Imaging Radiology Impressions: ITS Impressions Wrist X-Ray 06/20/23 08:40 IMPRESSION: Linear sclerotic focus distal metadiaphysis of the fifth metacarpal without cortical discontinuity/displacement. An occult fracture cannot be excluded. This corresponds to the marker placed at the site of trauma. Short interval follow-up may be considered. Medications Medications Current Medications Acetaminophen (Acetaminophen 325 Mg Tablet) 975 mg PO Q6H PRN PRN Reason: moderate pain Last Admin: 06/25/23 09:11 Dose: 975 mg Al Hydroxide/Mg Hydroxide (Magnesium Hydrox/Alum Hydrox 30 Ml Oral.Susp) 30 ml PO Q6H PRN PRN Reason: Heartburn/Nausea Last Admin: 06/20/23 15:45 Dose: 30 ml Benzocaine (Throat Lozenge, Medicated Lozenge) 1 lozenge MUCOUS MEM Q2H PRN PRN Reason: Sore Throat Last Admin: 06/24/23 21:04 Dose: 1 lozenge Buspirone HCl (Buspirone Hcl 10 Mg Tablet) 10 mg PO DAILY [facility] Last Admin: 06/25/23 08:45 Dose: 10 mg Fluoxetine HCl (Fluoxetine Hcl 20 Mg Capsule) 80 mg PO DAILY [facility] Last Admin: 06/25/23 08:45 Dose: 80 mg Fluticasone Propionate (Fluticasone Propionate Nasal 16 Gm [place]) 1 spray NOSTRIL-B BID PRN PRN Reason: Nasal Congestion Haloperidol (Haloperidol 5 Mg Tablet) 5 mg PO Q4H PRN PRN Reason: agitation Last Admin: 06/25/23 09:13 Dose: 5 mg Hydroxyzine HCl (Hydroxyzine Hcl 50 Mg Tablet) 50 mg PO Q6H PRN PRN Reason: Anxiety Last Admin: 06/25/23 09:12 Dose: 50 mg Lidocaine (Lidocaine 4 % Patch Adh..Patch) 1 patch TRANSDERMA DAILY PRN; Protocol PRN Reason: sternal pain Last Admin: 06/20/23 12:16 Dose: 1 patch Lorazepam (Lorazepam 0.5 Mg Tablet) 0.5 mg PO TID PRN PRN Reason: Anxiety Last Admin: 06/25/23 02:42 Dose: 0.5 mg Magnesium Hydroxide (Milk Of Magnesia 30 Ml Oral.Susp) 30 ml PO DAILY PRN PRN Reason: Constipation Magnesium Oxide (Magnesium Oxide 400 Mg Tablet) 400 mg PO DAILY [facility] Last Admin: 06/25/23 08:46 Dose: 400 mg Multivitamins/Vitamin C (Multivitamin Tablet) 1 tab PO DAILY [facility] Last Admin: 06/25/23 08:45 Dose: 1 tab Ondansetron HCl (Ondansetron Odt 4 Mg Tab.Rapdis) 4 mg TRANSLINGU Q6H PRN PRN Reason: Nausea and Vomiting Last Admin: 06/21/23 14:10 Dose: 4 mg Prazosin HCl (Prazosin Hcl 1 Mg Capsule) 6 mg PO BEDTIME [facility]; Protocol Last Admin: 06/24/23 21:04 Dose: 6 mg Quetiapine Fumarate (Quetiapine Fumarate 50 Mg Tablet) 50 mg PO BEDTIME [facility] Last Admin: 06/24/23 21:05 Dose: 50 mg Quetiapine Fumarate (Quetiapine Fumarate 50 Mg Tablet) 50 mg PO BEDTIME PRN PRN Reason: insomnia Last Admin: 06/24/23 21:05 Dose: 50 mg Simethicone (Simethicone 80 Mg Tab.Chew) 80 mg PO QIDWMHS [facility] Last Admin: 06/25/23 08:46 Dose: 80 mg Sumatriptan Succinate (Sumatriptan Succinate 100 Mg Tablet) 100 mg PO DAILY MRX1 PRN PRN Reason: Migraine Headache Last Admin: 06/19/23 14:04 Dose: 100 mg Trazodone HCl (Trazodone Hcl 50 Mg Tablet) 50 mg PO BEDTIME MRX1 PRN PRN Reason: Insomnia Allergies Allergies Allergy/AdvReac Type Severity Reaction Status Date / Time lithium Allergy Unknown Unknown Verified 06/16/23 21:49 metformin Allergy Unknown Unknown Verified 06/16/23 21:49 NSAIDS (Non-Steroidal Allergy Unknown Unknown Verified 06/16/23 21:49 Anti-Inflamma propoxyphene Allergy Unknown Unknown Verified 06/16/23 21:49 sulfamethoxazole Allergy Unknown Unknown Verified 06/16/23 21:49 trimethoprim Allergy Unknown Unknown Verified 06/16/23 21:49 duloxetine AdvReac Unknown Nausea Verified 06/17/23 02:58 oxcarbazepine AdvReac Unknown Unknown Verified 06/16/23 21:49 Assessment & Plan Assessment & Plan (1) Major depressive disorder, recurrent episode: Status: Acute Code(s): F33.9 - Major depressive disorder, recurrent, unspecified (2) Chronic post-traumatic stress disorder (PTSD): Status: Acute Code(s): F43.12 - Post-traumatic stress disorder, chronic Plan Pt is a 52-year-old female with a PMH significant for?fibromyalgia, migraines, chronic lower back pain, borderline personality trait, PTSD, and depression who is admitted to [facility] psychiatry unit for increased depression and suicide attempt by overdosing on Ativan, Tylenol, and tizanidine. Patient was found slumped over and unresponsive at a hotel desk. Given multiple doses intranasal and IV Narcan with little change. Was given [id number] ventilation on route to ED where she was subsequently intubated for airway protection. Was eventually extubated and started on Unasyn for suspected aspiration. Medical consult for admission H&P and ECT clearance. Mood disorder Plan as per Psychiatry ECT clearance EKG pending Otherwise there are no obvious contraindications to the planned procedure Coarse crackles on auscultation Likely secondary to aspiration from overdose Continue Augmentin Abdominal cramping/discomfort, nausea Will give Gas-X Milk of magnesia and or Colace if constipation returns Ondansetron p.r.n. nausea Migraines Continue topiramate, sumatriptan Chronic lower back pain Continue tizanidine Will follow until EKG is completed. 06/16: continue most of outpatient regimen, including buspar, prozac, ativan, prozazc, seroquel. taper and DC topamax as not presently indicated and as relatively contraindicated for ECT. she had been taking it for cocaine cravings, and she is no longer substantially concerned about cocaine use. pt uses victoza daily SQ injections; she does not have medication with her and [place] [facility] [place] said medication will be held until discharge. continue bactrim DS BID for 3 days for aspiration PNA. consult for medical clearance for ECT and ECT consult to Dr Marei. 06/18/23 - ok prn tylenol- lfts ok and tyl lvl 06/14 less 15 -CTP with pending ECT for depression/si 06/19/23 will be npo tonight in hopes of add on for ECT tomorrow 06/19: outburst due to not having expected ECT this morning. consult verbally communicated to yasmine. medically cleared for ECT. increase prazosin to 4 mg QHS for nightmares and insomnia in PTSD. increase daytime hydroxyzine PRNs to 50 mg each. hoping to start ECT . seroquel 50 mg QHS scheduled for insomnia. 06/20: assessed by yasmine for ECT, accepted to start tomorrow. F/U with raymond re xray and flatulence mgmt. 06/21: s/p ECT #1 today. no complications. scheduled simethicone. recheck wrist xray. otherwise continue current mgmt. 06/22: not interested in xray, wrist feeling much better. increase prazosin to 5 mg QHS for sleep/nightmares. ECT #2 tomorrow. pt feeling very dramatically improved since ECT #1. 06/23: awaiting ECT #2 today. continues with improved mod but poor sleep/nightmares. increase prazosin to 6 mg QHS. 06/24: no changes Reason for continued inpatient stay Substantial Risk for: rapid decompensation Time Spent With Patient Time: Total time managing care of this patient today ____ minutes.
[2023-06-25 11:56] LABS: HIV AB/AG Nonreactive (Nonreactive); HIV Num 1 0.07 S/CO (0.00-0.99)
[2023-06-25 12:04] LABS: Syphilis Screen Reactive (Nonreactive)
[2023-06-25 22:00] VITALS: BP 107/69; PULSE 58; RESP 16; TEMP 36.8; O2SAT 96
[2023-06-25] MEDS: Throat Lozenge, Medicated LOZENGE 1 LOZENGE MUCOUS MEM (22:04)
[2023-06-25] MEDS: Prazosin HCL 1 MG CAPSULE 6 MG PO (22:04)
[2023-06-25] MEDS: QUEtiapine Fumarate 50 MG TABLET PO ×2 (22:05)
[2023-06-26] MEDS: LORazepam 0.5 MG TABLET PO ×2 (02:44→13:39)
[2023-06-26 08:05] VITALS: BP 110/69; PULSE 59; RESP 16; TEMP 36.8; O2SAT 96
[2023-06-26] MEDS: busPIRone HCl 10 MG TABLET PO (08:58)
[2023-06-26] MEDS: hydrOXYzine HCL 50 MG TABLET PO ×2 (08:58→17:05)
[2023-06-26] MEDS: HaloperidoL 5 MG TABLET PO ×2 (08:58→17:05)
[2023-06-26] MEDS: Magnesium Oxide 400 MG TABLET PO (08:58)
[2023-06-26] MEDS: FLUoxetine HCl 20 MG CAPSULE 80 MG PO (08:59)
[2023-06-26] MEDS: Simethicone 80 MG TAB.CHEW PO ×3 (08:59→16:58)
[2023-06-26] MEDS: Multivitamin TABLET 1 TAB PO (08:59)
[2023-06-26 09:33] LABS: CT PCR NOT DETECTED (Not Detect.); NG PCR NOT DETECTED (Not Detect.)
--- NOTE | 2023-06-26 12:07 | HO.PSYCHPN ---
Subjective Subjective Date of Service: 06/26/23 Reason For Visit: PTSD and BPD Subjective Notes: Conditional Voluntary Interim History: Met with patient. Discussed with Nursing. Reports feeling significant improvement from ECT. Thankful this is help with mood and not feeling depressed. Hopeful that if she needs ECT in community setting, treatment team will have that set up closer to her home out in [place]. Medication Compliance: Yes Side effects from medications: No Attending Groups: Intermittent Review of Systems Acute medical concerns: No Review of Systems Review of Systems nothing acute Mental Status Exam Mental Status Exam Narrative: Pleasant. Engaged. Casually dressed presented. Good hygiene. Organized. Bright affect. No SI. No HI. No agitation or psychosis. Insight and judgment good Diagnostics Vital Signs (24Hr): Vital Signs - 24 hr 06/25/23 22:00 06/26/23 08:05 Temperature 98.2 F 98.3 F Pulse Rate 58 59 Respiratory Rate 16 16 Blood Pressure 107/69 110/69 Pulse Oximetry 96 96 Oxygen Delivery Method Room Air BMI result Body Mass Index 31.2 Labs 06/17/23 09:06 Labs: Laboratory Results - last 48 hr 06/25/23 06/26/23 11:08 02:45 T.pallidum Ab (EIA) Reactive A Chlam trachomat DNA PCR NOT DETECTED HIV 1&2 Ab/P24 Ag 4thGn Nonreactive N.gonorrhoeae DNA (PCR) NOT DETECTED Imaging Radiology Impressions: ITS Impressions Wrist X-Ray 06/20/23 08:40 IMPRESSION: Linear sclerotic focus distal metadiaphysis of the fifth metacarpal without cortical discontinuity/displacement. An occult fracture cannot be excluded. This corresponds to the marker placed at the site of trauma. Short interval follow-up may be considered. Medications Medications Current Medications Acetaminophen (Acetaminophen 325 Mg Tablet) 975 mg PO Q6H PRN PRN Reason: moderate pain Last Admin: 06/25/23 09:11 Dose: 975 mg Al Hydroxide/Mg Hydroxide (Magnesium Hydrox/Alum Hydrox 30 Ml Oral.Susp) 30 ml PO Q6H PRN PRN Reason: Heartburn/Nausea Last Admin: 06/20/23 15:45 Dose: 30 ml Benzocaine (Throat Lozenge, Medicated Lozenge) 1 lozenge MUCOUS MEM Q2H PRN PRN Reason: Sore Throat Last Admin: 06/25/23 22:04 Dose: 1 lozenge Buspirone HCl (Buspirone Hcl 10 Mg Tablet) 10 mg PO DAILY [facility] Last Admin: 06/26/23 08:58 Dose: 10 mg Fluoxetine HCl (Fluoxetine Hcl 20 Mg Capsule) 80 mg PO DAILY [facility] Last Admin: 06/26/23 08:59 Dose: 80 mg Fluticasone Propionate (Fluticasone Propionate Nasal 16 Gm [place]) 1 spray NOSTRIL-B BID PRN PRN Reason: Nasal Congestion Haloperidol (Haloperidol 5 Mg Tablet) 5 mg PO Q4H PRN PRN Reason: agitation Last Admin: 06/26/23 08:58 Dose: 5 mg Hydroxyzine HCl (Hydroxyzine Hcl 50 Mg Tablet) 50 mg PO Q6H PRN PRN Reason: Anxiety Last Admin: 06/26/23 08:58 Dose: 50 mg Lidocaine (Lidocaine 4 % Patch Adh..Patch) 1 patch TRANSDERMA DAILY PRN; Protocol PRN Reason: sternal pain Last Admin: 06/20/23 12:16 Dose: 1 patch Lorazepam (Lorazepam 0.5 Mg Tablet) 0.5 mg PO TID PRN PRN Reason: Anxiety Last Admin: 06/26/23 02:44 Dose: 0.5 mg Magnesium Hydroxide (Milk Of Magnesia 30 Ml Oral.Susp) 30 ml PO DAILY PRN PRN Reason: Constipation Magnesium Oxide (Magnesium Oxide 400 Mg Tablet) 400 mg PO DAILY [facility] Last Admin: 06/26/23 08:58 Dose: 400 mg Multivitamins/Vitamin C (Multivitamin Tablet) 1 tab PO DAILY [facility] Last Admin: 06/26/23 08:59 Dose: 1 tab Ondansetron HCl (Ondansetron Odt 4 Mg Tab.Rapdis) 4 mg TRANSLINGU Q6H PRN PRN Reason: Nausea and Vomiting Last Admin: 06/21/23 14:10 Dose: 4 mg Prazosin HCl (Prazosin Hcl 1 Mg Capsule) 6 mg PO BEDTIME [facility]; Protocol Last Admin: 06/25/23 22:04 Dose: 6 mg Quetiapine Fumarate (Quetiapine Fumarate 50 Mg Tablet) 50 mg PO BEDTIME [facility] Last Admin: 06/25/23 22:05 Dose: 50 mg Quetiapine Fumarate (Quetiapine Fumarate 50 Mg Tablet) 50 mg PO BEDTIME PRN PRN Reason: insomnia Last Admin: 04/06/24 22:05 Dose: 50 mg Simethicone (Simethicone 80 Mg Tab.Chew) 80 mg PO QIDWMHS [facility] Last Admin: 06/26/23 08:59 Dose: 80 mg Sumatriptan Succinate (Sumatriptan Succinate 100 Mg Tablet) 100 mg PO DAILY MRX1 PRN PRN Reason: Migraine Headache Last Admin: 06/19/23 14:04 Dose: 100 mg Trazodone HCl (Trazodone Hcl 50 Mg Tablet) 50 mg PO BEDTIME MRX1 PRN PRN Reason: Insomnia Allergies Allergies Allergy/AdvReac Type Severity Reaction Status Date / Time lithium Allergy Unknown Unknown Verified 06/16/23 21:49 metformin Allergy Unknown Unknown Verified 06/16/23 21:49 NSAIDS (Non-Steroidal Allergy Unknown Unknown Verified 06/16/23 21:49 Anti-Inflamma propoxyphene Allergy Unknown Unknown Verified 06/16/23 21:49 sulfamethoxazole Allergy Unknown Unknown Verified 06/16/23 21:49 trimethoprim Allergy Unknown Unknown Verified 06/16/23 21:49 duloxetine AdvReac Unknown Nausea Verified 06/17/23 02:58 oxcarbazepine AdvReac Unknown Unknown Verified 06/16/23 21:49 Assessment & Plan Assessment & Plan (1) Major depressive disorder, recurrent episode: Status: Acute Code(s): F33.9 - Major depressive disorder, recurrent, unspecified (2) Chronic post-traumatic stress disorder (PTSD): Status: Acute Code(s): F43.12 - Post-traumatic stress disorder, chronic Plan Pt is a 52-year-old female with a PMH significant for?fibromyalgia, migraines, chronic lower back pain, borderline personality trait, PTSD, and depression who is admitted to [facility] psychiat[facility] unit for increased depression and suicide attempt by overdosing on Ativan, Tylenol, and tizanidine. Patient was found slumped over and unresponsive at a hotel desk. Given multiple doses intranasal and IV Narcan with little change. Was given [id number] ventilation on route to ED where she was subsequently intubated for airway protection. Was eventually extubated and started on Unasyn for suspected aspiration. Medical consult for admission H&P and ECT clearance. Mood disorder Plan as per Psychiatry ECT clearance EKG pending Otherwise there are no obvious contraindications to the planned procedure Coarse crackles on auscultation Likely secondary to aspiration from overdose Continue Augmentin Abdominal cramping/discomfort, nausea Will give Gas-X Milk of magnesia and or Colace if constipation returns Ondansetron p.r.n. nausea Migraines Continue topiramate, sumatriptan Chronic lower back pain Continue tizanidine Will follow until EKG is completed. 06/16: continue most of outpatient regimen, including buspar, prozac, ativan, prozazc, seroquel. taper and DC topamax as not presently indicated and as relatively contraindicated for ECT. she had been taking it for cocaine cravings, and she is no longer substantially concerned about cocaine use. pt uses victoza daily SQ injections; she does not have medication with her and it [place] [facility] [place] said medication will be held until discharge. continue bactrim DS BID for 3 days for aspiration PNA. consult for medical clearance for ECT and ECT consult to Dr Marie. 06/18/23 - ok prn tylenol- lfts ok and tyl lvl 06/14 less 15 -CTP with pending ECT for depression/si 06/19/23 will be npo tonight in hopes of add on for ECT tomorrow 06/19: outburst due to not having expected ECT this morning. consult verbally communicated to yasmine. medically cleared for ECT. increase prazosin to 4 mg QHS for nightmares and insomnia in PTSD. increase daytime hydroxyzine PRNs to 50 mg each. hoping to start ECT . seroquel 50 mg QHS scheduled for insomnia. 06/20: assessed by yasmine for ECT, accepted to start tomorrow. F/U with raymond re xray and flatulence mgmt. 06/21: s/p ECT #1 today. no complications. scheduled simethicone. recheck wrist xray. otherwise continue current mgmt. 06/22: not interested in xray, wrist feeling much better. increase prazosin to 5 mg QHS for sleep/nightmares. ECT #2 tomorrow. pt feeling very dramatically improved since ECT #1. 06/23: awaiting ECT #2 today. continues with improved mod but poor sleep/nightmares. increase prazosin to 6 mg QHS. 06/24: no changes 06/25: no changes Reason for continued inpatient stay Substantial Risk for: rapid decompensation Time Spent With Patient Time: Total time managing care of this patient today ____ minutes.
[2023-06-26 21:15] VITALS: BP 126/67; PULSE 58; RESP 18; TEMP 36.8; O2SAT 95
[2023-06-26] MEDS: QUEtiapine Fumarate 50 MG TABLET PO (21:40)
[2023-06-26] MEDS: Prazosin HCL 1 MG CAPSULE 6 MG PO (21:40)
[2023-06-27] VITALS (10 sets, daily range): BP systolic 110–132; BP diastolic 65–89; PULSE 57–75; RESP 14–16; TEMP 36.2–36.9; O2SAT 93–96
[2023-06-27] MEDS: HaloperidoL 5 MG TABLET PO ×3 (02:29→18:34)
[2023-06-27] MEDS: hydrOXYzine HCL 50 MG TABLET PO (02:29)
[2023-06-27] MEDS: FLUoxetine HCl 20 MG CAPSULE 80 MG PO (08:22)
[2023-06-27] MEDS: Multivitamin TABLET 1 TAB PO (08:23)
[2023-06-27] MEDS: Magnesium Oxide 400 MG TABLET PO (08:24)
[2023-06-27] MEDS: busPIRone HCl 10 MG TABLET PO (08:24)
[2023-06-27] MEDS: Acetaminophen 325 MG TABLET 975 MG PO (11:41)
--- NOTE | 2023-06-27 14:00 | HO.ANESPROP2 ---
[facility], [facility] Active Problems Active Problems: All Active Problems Cannabis use with anxiety disorder (Acute) Cocaine use disorder in remission (Acute) Chronic post-traumatic stress disorder (PTSD) (Acute) Major depressive disorder, recurrent episode (Acute) Pre-op evaluation (Acute) Medical clearance for psychiatric admission (Acute) Past Medical History Medical History Chronic low back pain Fibromyalgia Migraine Family History Family history of problems with anesthesia: No Surgical History History of Problems with Anesthesia: No Social History Social History Household Members: None Housing: Apartment Do you presently have visiting nurse or other home services: Yes ([employer], Homemaker) Patient Tobacco Use Status: Never used Tobacco Smoked in Last 30 Days: No e-Cigarette/Vaping Use: Never Used Patient Interested in Nicotine Replacement: No Patient Given Instructions on How to Stop Smoking: No Use of substances other than those prescribed or required for medical reasons: Yes Substance Use Type: Marijuana Substance Use Frequency: Daily Last Used Substance: Just Prior to Admission Last Used Substance Other:: once joint a day Currently Displaying Signs/Symptoms of Drug Intoxication Withdrawal: No Any prior treatment program specific to substance use: No Have you been hit, kicked, punched, or otherwise hurt by someone within the past year? If so, by whom?: No Do you feel safe in your current relationship?: No Current Relationship Is there a partner from a previous relationship who is making you feel unsafe now?: No Are you made to feel afraid or neglected: No Are you DNR?: No Advance Directives: No Advance Directives Information Provided: No Do you have thoughts of harming others: None Do you have a plan to hurt others: No Plan Recently lost weight without trying: No How much weight loss: Not applicable Eating poorly because of decreased appetite: No Nutrition screen score: 0 Nutrition Risks: No Nutritional Risk Patient : No : No Poor oral hygiene: No service: No Sexual orientation: Don't Know Meds Allergies Allergy/AdvReac Type Severity Reaction Status Date / Time lithium Allergy Unknown Unknown Verified 06/16/23 21:49 metformin Allergy Unknown Unknown Verified 06/16/23 21:49 NSAIDS (Non-Steroidal Allergy Unknown Unknown Verified 06/16/23 21:49 Anti-Inflamma propoxyphene Allergy Unknown Unknown Verified 06/16/23 21:49 sulfamethoxazole Allergy Unknown Unknown Verified 06/16/23 21:49 trimethoprim Allergy Unknown Unknown Verified 06/16/23 21:49 duloxetine AdvReac Unknown Nausea Verified 06/17/23 02:58 oxcarbazepine AdvReac Unknown Unknown Verified 06/16/23 21:49 Active Medications: Current Medications Acetaminophen (Acetaminophen 325 Mg Tablet) 975 mg PO Q6H PRN PRN Reason: moderate pain Last Admin: 06/27/23 11:41 Dose: 975 mg Al Hydroxide/Mg Hydroxide (Magnesium Hydrox/Alum Hydrox 30 Ml Oral.Susp) 30 ml PO Q6H PRN PRN Reason: Heartburn/Nausea Last Admin: 06/20/23 15:45 Dose: 30 ml Benzocaine (Throat Lozenge, Medicated Lozenge) 1 lozenge MUCOUS MEM Q2H PRN PRN Reason: Sore Throat Last Admin: 06/25/23 22:04 Dose: 1 lozenge Buspirone HCl (Buspirone Hcl 10 Mg Tablet) 10 mg PO DAILY [facility] Last Admin: 06/27/23 08:24 Dose: 10 mg Fluoxetine HCl (Fluoxetine Hcl 20 Mg Capsule) 80 mg PO DAILY [facility] Last Admin: 06/27/23 08:22 Dose: 80 mg Fluticasone Propionate (Fluticasone Propionate Nasal 16 Gm [place]) 1 spray NOSTRIL-B BID PRN PRN Reason: Nasal Congestion Haloperidol (Haloperidol 5 Mg Tablet) 5 mg PO Q4H PRN PRN Reason: agitation Last Admin: 06/27/23 08:29 Dose: 5 mg Hydroxyzine HCl (Hydroxyzine Hcl 50 Mg Tablet) 50 mg PO Q6H PRN PRN Reason: Anxiety Last Admin: 06/27/23 02:29 Dose: 50 mg Lactated Ringer's (Lr) 1,000 mls @ 50 mls/hr IVCONT .Q20H [facility] Lidocaine (Lidocaine 4 % Patch Adh..Patch) 1 patch TRANSDERMA DAILY PRN; Protocol PRN Reason: sternal pain Last Admin: 06/20/23 12:16 Dose: 1 patch Lorazepam (Lorazepam 0.5 Mg Tablet) 0.5 mg PO TID PRN PRN Reason: Anxiety Last Admin: 06/26/23 13:39 Dose: 0.5 mg Magnesium Hydroxide (Milk Of Magnesia 30 Ml Oral.Susp) 30 ml PO DAILY PRN PRN Reason: Constipation Magnesium Oxide (Magnesium Oxide 400 Mg Tablet) 400 mg PO DAILY [facility] Last Admin: 06/27/23 08:24 Dose: 400 mg Multivitamins/Vitamin C (Multivitamin Tablet) 1 tab PO DAILY [facility] Last Admin: 06/27/23 08:23 Dose: 1 tab Ondansetron HCl (Ondansetron Odt 4 Mg Tab.Rapdis) 4 mg TRANSLINGU Q6H PRN PRN Reason: Nausea and Vomiting Last Admin: 06/21/23 14:10 Dose: 4 mg Prazosin HCl (Prazosin Hcl 1 Mg Capsule) 6 mg PO BEDTIME [facility]; Protocol Last Admin: 06/26/23 21:40 Dose: 6 mg Quetiapine Fumarate (Quetiapine Fumarate 50 Mg Tablet) 50 mg PO BEDTIME [facility] Last Admin: 06/26/23 21:40 Dose: 50 mg Quetiapine Fumarate (Quetiapine Fumarate 50 Mg Tablet) 50 mg PO BEDTIME PRN PRN Reason: insomnia Last Admin: 06/25/23 22:05 Dose: 50 mg Simethicone (Simethicone 80 Mg Tab.Chew) 80 mg PO QIDWMHS [facility] Last Admin: 06/27/23 12:01 Dose: Not Given Sumatriptan Succinate (Sumatriptan Succinate 100 Mg Tablet) 100 mg PO DAILY MRX1 PRN PRN Reason: Migraine Headache Last Admin: 06/19/23 14:04 Dose: 100 mg Trazodone HCl (Trazodone Hcl 50 Mg Tablet) 50 mg PO BEDTIME MRX1 PRN PRN Reason: Insomnia Home Medications ?Medication ?Instructions ?Recorded ?Confirmed ?Last Taken ?Type buspirone 10 mg tablet 10 mg PO TID 06/17/23 06/17/23 06/16/23 23:45 History cholecalciferol (vitamin D3) 50 50 mcg PO DAILY 06/17/23 06/17/23 Unknown History mcg (2,000 unit) tablet (Vitamin D3) fluoxetine 80 mg PO DAILY 06/17/23 06/17/23 06/16/23 09:02 History liraglutide 0.6 mg/0.1 mL (18 mg/3 1.8 mg subcut DAILY 06/17/23 06/17/23 Unknown History mL) subcutaneous pen injector (Victoza 3-Kyaw) lorazepam 0.5 mg tablet 0.5 mg PO TID PRN anxiety 06/17/23 06/17/23 Unknown History ondansetron 4 mg disintegrating 4 mg translingual Q8H PRN Nausea 06/17/23 06/17/23 Unknown History tablet quetiapine 50 mg tablet 50 mg PO BEDTIME 06/17/23 06/17/23 06/16/23 23:45 History sumatriptan succinate 100 mg tablet 100 mg PO 2XW 06/17/23 06/17/23 Unknown History tizanidine 4 mg tablet 4 mg PO Q12H PRN Muscle Pain 06/17/23 06/17/23 Unknown History topiramate 25 mg tablet 75 mg PO BID 06/17/23 06/17/23 06/16/23 23:45 History Exam Height,Weight and Vital Signs: Height 5 ft 6 in Weight 87.713 kg Last Vital Signs Temp 98.5 F 06/27/23 06:00 Pulse 63 06/27/23 06:00 Resp 14 06/27/23 06:00 BP 132/68 06/27/23 06:00 Pulse Ox 95 06/27/23 06:00 O2 Del Method Room Air 06/27/23 06:00 O2 Flow Rate 2 06/24/23 14:42 Pertinent Lab Results Pertinent Lab Results: Laboratory Tests 06/17/23 06/25/23 06/26/23 09:06 11:08 02:45 Sodium 141 Potassium 4.3 Chloride 112 H Carbon Dioxide 23 Anion Gap 10 L BUN 9 Creatinine 0.81 Estim Creat Clear Calc 91.6 Estimated GFR > 60 Fasting Glucose 82 Calcium 9.3 Total Bilirubin 0.2 AST 13 ALT 13 Alkaline Phosphatase 49 Total Protein 6.3 L Albumin 3.5 Triglycerides 64 Cholesterol 182 LDL Cholesterol, Calc 92 HDL Cholesterol 78 T.pallidum Ab (EIA) Reactive A Chlam trachomat DNA PCR NOT DETECTED HIV 1&2 Ab/P24 Ag 4thGn Nonreactive N.gonorrhoeae DNA (PCR) NOT DETECTED Airway Mallampati Class: II TM Dist: >3cm Neck ROM: Full Heart: rrr Lungs: cta Assessment and Plan Assessment Anesthesia Assessment: Anesthesia Plan Discussed and Chart Reviewed Final Anesthetic Review Family History of Problems with Anesthesia: No History of Problems with Anesthesia: No NPO: Yes ASA Class: III Final Preanesthetic Review: No Changes in Pt Med Stat, Meds/Allgs Chart Reviewed and Consent Obtained/Reviewed Patient Risk: Intermediate Procedure Risk: Intermediate Anesthetic Plan Anesthetic Plan: GA Disposition: Standard PACU
--- NOTE | 2023-06-27 14:14 | MHC.SHP ---
Pre-Procedural Eval Section A - 24 Hr Update-Section A only Date of Service: 06/27/23 The patient is an INPATIENT: Yes Changes since office visit: No Cold of Flu in the past 2 weeks, No New Medical Problems, No Changes in Medication and No Patient answered all questions The patient has been examined within 24 hours of the surgical procedure. The History & Physical has been completed within 30 days and I have reviewed it.: Yes Section B - Complete if H&P > 30 days Chief Complaint: PTSD and BPD Allergies: Allergies Allergy/AdvReac Type Severity Reaction Status Date / Time lithium Allergy Unknown Unknown Verified 06/16/23 21:49 metformin Allergy Unknown Unknown Verified 06/16/23 21:49 NSAIDS (Non-Steroidal Allergy Unknown Unknown Verified 06/16/23 21:49 Anti-Inflamma propoxyphene Allergy Unknown Unknown Verified 06/16/23 21:49 sulfamethoxazole Allergy Unknown Unknown Verified 06/16/23 21:49 trimethoprim Allergy Unknown Unknown Verified 06/16/23 21:49 duloxetine AdvReac Unknown Nausea Verified 06/17/23 02:58 oxcarbazepine AdvReac Unknown Unknown Verified 06/16/23 21:49 Plan I have reviewed the history and physical and performed a pertinent physical examination on my patient. No changes have occurred unless specified. Time Spent With Patient Time: Total time managing care of this patient today ____ minutes.
--- NOTE | 2023-06-27 14:15 | HO.ECTPROC ---
ECT Procedure Note Diagnosis/Treatment Date of Service: 06/27/23 Diagnosis: Bipolar disorder Previous ECT Date: 06/24/23 Current Treatment Number: 3 Treatment: Series Interval Clinical Notes: The patient reported improvement of her mood with the last ECT. No active SI. She denies side effects besides a mild headache after the last ECT. No muscle pain. ECT done with the same parameters as before, we discussed with the anesthesiology team regarding msucle relaxants. Since the patient denies having any muscle axhes we decided to keep the same doses. The patient took a longer time to fall sleep and she was not relaxed so we decide to change it to Brevital next time, Woke up well, no complications. Time: Total time managing care of this patient today _30___ minutes. ECT Settings Device: THYMATRON DGx Electrode Placement: Right Unilateral Program/Pulse Width: 0.25 Energy Percent: 100 Seizure Duration By EEG (in seconds): 45 (computer didn't record seizure) By Motor Observation (in seconds): 36 Medications Administration General Anesthetic: Etomidate (16) Muscle Relaxant: Succinylcholine (100) Ancillary Medications Anti-emetics: Zofran - Pre ECT Miscillaneous Medications: Propofol and Midazolam (post ECT) Treatment Recommendations No Changes Recommended: No change Notes: Next ECT change Etomidate to Brevital and increase Succynilcholine to 120 mg, even thought that the patient denies muscle spasms or pain Pt Tolerated Procedure w/o Issue: Yes
--- NOTE | 2023-06-27 16:25 | P.PNPSI_ITS ---
Subjective Subjective Date of Service: 06/27/23 Reason For Visit: PTSD and BPD Interim History: calm, cooperative, resting in bed. feeling well, full range of affect. denies SI/SIBI. per staff, brighter, visible. PRN haldol and atarax. no AVH eves. slept 7+ hours. Mental Status Exam Mental Status Exam Narrative: Pleasant. Engaged. Casually dressed presented. Good hygiene. Organized. Bright affect. No SI. No HI. No agitation or psychosis. Insight and judgment good Diagnostics Vital Signs (24Hr): Vital Signs - 24 hr 06/26/23 21:15 06/27/23 06:00 06/27/23 14:41 Temperature 98.2 F 98.5 F 97.2 F Pulse Rate 58 63 72 Respiratory Rate 18 14 14 Blood Pressure 126/67 132/68 112/65 Pulse Oximetry 95 95 96 Oxygen Delivery Method Room Air Room Air Nasal Cannula with ETCO2 Oxygen Flow Rate 2 06/27/23 14:46 06/27/23 14:51 06/27/23 14:56 Temperature Pulse Rate 74 75 75 Respiratory Rate 14 16 14 Blood Pressure 114/72 117/71 110/72 Pulse Oximetry 96 96 96 Oxygen Delivery Method Nasal Cannula with ETCO2 Nasal Cannula with ETCO2 Oxygen Flow Rate 2 2 2 06/27/23 15:11 06/27/23 15:26 06/27/23 15:54 Temperature 97.2 F 97.2 F 97.5 F Pulse Rate 63 60 57 Respiratory Rate 14 16 Blood Pressure 117/81 131/89 112/76 Pulse Oximetry 95 95 94 Oxygen Delivery Method Room Air Room Air Room Air Oxygen Flow Rate 06/27/23 15:57 Temperature 97.5 F Pulse Rate 57 Respiratory Rate 16 Blood Pressure 112/76 Pulse Oximetry 94 Oxygen Delivery Method Oxygen Flow Rate BMI result Body Mass Index 31.2 Labs 06/17/23 09:06 Labs: Laboratory Results - last 48 hr 06/26/23 02:45 Chlam trachomat DNA PCR NOT DETECTED N.gonorrhoeae DNA (PCR) NOT DETECTED Imaging Radiology Impressions: ITS Impressions Wrist X-Ray 06/20/23 08:40 IMPRESSION: Linear sclerotic focus distal metadiaphysis of the fifth metacarpal without cortical discontinuity/displacement. An occult fracture cannot be excluded. This corresponds to the marker placed at the site of trauma. Short interval follow-up may be considered. Medications Medications Current Medications Acetaminophen (Acetaminophen 325 Mg Tablet) 975 mg PO Q6H PRN PRN Reason: moderate pain Last Admin: 06/27/23 11:41 Dose: 975 mg Al Hydroxide/Mg Hydroxide (Magnesium Hydrox/Alum Hydrox 30 Ml Oral.Susp) 30 ml PO Q6H PRN PRN Reason: Heartburn/Nausea Last Admin: 06/20/23 15:45 Dose: 30 ml Benzocaine (Throat Lozenge, Medicated Lozenge) 1 lozenge MUCOUS MEM Q2H PRN PRN Reason: Sore Throat Last Admin: 06/25/23 22:04 Dose: 1 lozenge Buspirone HCl (Buspirone Hcl 10 Mg Tablet) 10 mg PO DAILY [facility] Last Admin: 06/27/23 08:24 Dose: 10 mg Fluoxetine HCl (Fluoxetine Hcl 20 Mg Capsule) 80 mg PO DAILY [facility] Last Admin: 06/27/23 08:22 Dose: 80 mg Fluticasone Propionate (Fluticasone Propionate Nasal 16 Gm [place]) 1 spray NOSTRIL-B BID PRN PRN Reason: Nasal Congestion Haloperidol (Haloperidol 5 Mg Tablet) 5 mg PO Q4H PRN PRN Reason: agitation Last Admin: 06/27/23 08:29 Dose: 5 mg Hydroxyzine HCl (Hydroxyzine Hcl 50 Mg Tablet) 50 mg PO Q6H PRN PRN Reason: Anxiety Last Admin: 06/27/23 02:29 Dose: 50 mg Lidocaine (Lidocaine 4 % Patch Adh..Patch) 1 patch TRANSDERMA DAILY PRN; Protocol PRN Reason: sternal pain Last Admin: 06/20/23 12:16 Dose: 1 patch Lorazepam (Lorazepam 0.5 Mg Tablet) 0.5 mg PO TID PRN PRN Reason: Anxiety Last Admin: 06/26/23 13:39 Dose: 0.5 mg Magnesium Hydroxide (Milk Of Magnesia 30 Ml Oral.Susp) 30 ml PO DAILY PRN PRN Reason: Constipation Magnesium Oxide (Magnesium Oxide 400 Mg Tablet) 400 mg PO DAILY [facility] Last Admin: 06/27/23 08:24 Dose: 400 mg Multivitamins/Vitamin C (Multivitamin Tablet) 1 tab PO DAILY [facility] Last Admin: 06/27/23 08:23 Dose: 1 tab Ondansetron HCl (Ondansetron Odt 4 Mg Tab.Rapdis) 4 mg TRANSLINGU Q6H PRN PRN Reason: Nausea and Vomiting Last Admin: 06/21/23 14:10 Dose: 4 mg Prazosin HCl (Prazosin Hcl 1 Mg Capsule) 6 mg PO BEDTIME [facility]; Protocol Last Admin: 06/26/23 21:40 Dose: 6 mg Quetiapine Fumarate (Quetiapine Fumarate 50 Mg Tablet) 50 mg PO BEDTIME [facility] Last Admin: 06/26/23 21:40 Dose: 50 mg Quetiapine Fumarate (Quetiapine Fumarate 50 Mg Tablet) 50 mg PO BEDTIME PRN PRN Reason: insomnia Last Admin: 06/25/23 22:05 Dose: 50 mg Simethicone (Simethicone 80 Mg Tab.Chew) 80 mg PO QIDWMHS [facility] Last Admin: 06/27/23 12:01 Dose: Not Given Sumatriptan Succinate (Sumatriptan Succinate 100 Mg Tablet) 100 mg PO DAILY MRX1 PRN PRN Reason: Migraine Headache Last Admin: 06/19/23 14:04 Dose: 100 mg Trazodone HCl (Trazodone Hcl 50 Mg Tablet) 50 mg PO BEDTIME MRX1 PRN PRN Reason: Insomnia Allergies Allergies Allergy/AdvReac Type Severity Reaction Status Date / Time lithium Allergy Unknown Unknown Verified 06/16/23 21:49 metformin Allergy Unknown Unknown Verified 06/16/23 21:49 NSAIDS (Non-Steroidal Allergy Unknown Unknown Verified 06/16/23 21:49 Anti-Inflamma propoxyphene Allergy Unknown Unknown Verified 06/16/23 21:49 sulfamethoxazole Allergy Unknown Unknown Verified 06/16/23 21:49 trimethoprim Allergy Unknown Unknown Verified 06/16/23 21:49 duloxetine AdvReac Unknown Nausea Verified 06/17/23 02:58 oxcarbazepine AdvReac Unknown Unknown Verified 06/16/23 21:49 Assessment & Plan Assessment & Plan (1) Major depressive disorder, recurrent episode: Status: Acute Code(s): F33.9 - Major depressive disorder, recurrent, unspecified (2) Chronic post-traumatic stress disorder (PTSD): Status: Acute Code(s): F43.12 - Post-traumatic stress disorder, chronic Plan Pt is a 52-year-old female with a PMH significant for?fibromyalgia, migraines, chronic lower back pain, borderline personality trait, PTSD, and depression who is admitted to [facility] psychiatry unit for increased depression and suicide attempt by overdosing on Ativan, Tylenol, and tizanidine. Patient was found slumped over and unresponsive at a hotel desk. Given multiple doses intranasal and IV Narcan with little change. Was given [id number] ventilation on route to ED where she was subsequently intubated for airway protection. Was eventually extubated and started on Unasyn for suspected aspiration. Medical consult for admission H&P and ECT clearance. Mood disorder Plan as per Psychiatry ECT clearance EKG pending Otherwise there are no obvious contraindications to the planned procedure Coarse crackles on auscultation Likely secondary to aspiration from overdose Continue Augmentin Abdominal cramping/discomfort, nausea Will give Gas-X Milk of magnesia and or Colace if constipation returns Ondansetron p.r.n. nausea Migraines Continue topiramate, sumatriptan Chronic lower back pain Continue tizanidine Will follow until EKG is completed. 06/16: continue most of outpatient regimen, including buspar, prozac, ativan, prozazc, seroquel. taper and DC topamax as not presently indicated and as relatively contraindicated for ECT. she had been taking it for cocaine cravings, and she is no longer substantially concerned about cocaine use. pt uses victoza daily SQ injections; she does not have medication with her and it is NF at [facility]. said medication will be held until discharge. continue bactrim DS BID for 3 days for aspiration PNA. consult for medical clearance for ECT and ECT consult to Dr Marie. 06/18/23 - ok prn tylenol- lfts ok and tyl lvl 06/14 less 15 -CTP with pending ECT for depression/si 06/19/23 will be npo tonight in hopes of add on for ECT tomorrow 06/19: outburst due to not having expected ECT this morning. consult verbally communicated to yasmine. medically cleared for ECT. increase prazosin to 4 mg QHS for nightmares and insomnia in PTSD. increase daytime hydroxyzine PRNs to 50 mg each. hoping to start ECT . seroquel 50 mg QHS scheduled for insomnia. 06/20: assessed by yasmine for ECT, accepted to start tomorrow. F/U with [facility] re xray and flatulence mgmt. 06/21: s/p ECT #1 today. no complications. scheduled simethicone. recheck wrist xray. otherwise continue current mgmt. 06/22: not interested in xray, wrist feeling much better. increase prazosin to 5 mg QHS for sleep/nightmares. ECT #2 tomorrow. pt feeling very dramatically improved since ECT #1. 06/23: awaiting ECT #2 today. continues with improved mod but poor sleep/nightmares. increase prazosin to 6 mg QHS. 06/24: no changes 06/25: no changes 06/26: completed ECT #3 today. mood improved, appears well. continue current mgmt. Reason for continued inpatient stay Substantial Risk for: harm to self, inability to function and rapid decompensation Time Spent With Patient Time: Total time managing care of this patient today __25__ minutes.
[2023-06-27] MEDS: LORazepam 0.5 MG TABLET PO (18:34)
[2023-06-27] MEDS: QUEtiapine Fumarate 50 MG TABLET PO (21:59)
[2023-06-27] MEDS: Prazosin HCL 1 MG CAPSULE 6 MG PO (21:59)
[2023-06-28] MEDS: QUEtiapine Fumarate 50 MG TABLET PO ×2 (02:13→21:07)
[2023-06-28] MEDS: hydrOXYzine HCL 50 MG TABLET PO ×3 (02:13→21:11)
[2023-06-28] MEDS: HaloperidoL 5 MG TABLET PO ×4 (02:13→22:46)
[2023-06-28] MEDS: Benztropine Mesylate 1 MG TABLET PO ×2 (04:21→16:51)
[2023-06-28 06:00] VITALS: BP 101/52; PULSE 61; RESP 18; TEMP 36.5; O2SAT 96
[2023-06-28] MEDS: FLUoxetine HCl 20 MG CAPSULE 80 MG PO (08:44)
[2023-06-28] MEDS: Simethicone 80 MG TAB.CHEW PO ×4 (08:44→21:07)
[2023-06-28] MEDS: Magnesium Oxide 400 MG TABLET PO (08:44)
[2023-06-28] MEDS: Multivitamin TABLET 1 TAB PO (08:44)
[2023-06-28] MEDS: busPIRone HCl 10 MG TABLET PO (08:44)
[2023-06-28 08:58] VITALS: BP 110/65
[2023-06-28] MEDS: Acetaminophen 325 MG TABLET 975 MG PO (12:20)
[2023-06-28] MEDS: LORazepam 0.5 MG TABLET PO (15:24)
--- NOTE | 2023-06-28 17:15 | HO.PSYCHPN ---
Subjective Subjective Date of Service: 06/28/23 Reason For Visit: PTSD and BPD Interim History: no change in presentation. informed of 6 ECT Tx plan with discharge next tuesday, about which she appears to be fine. does acknowledge akathisia from haldol, agreeable to add cogentin to haldol dosing. per staff, dep/anx 3. ECT helping. no SI/HI. increased anxiety later in shift. slept. Mental Status Exam Mental Status Exam Narrative: Pleasant. Engaged. Casually dressed presented. Good hygiene. Organized. Bright affect. No SI. No HI. No agitation or psychosis. Insight and judgment good Diagnostics Vital Signs (24Hr): Vital Signs - 24 hr 06/27/23 20:25 06/28/23 06:00 06/28/23 08:58 Temperature 98.5 F 97.7 F Pulse Rate 60 61 Respiratory Rate 16 18 Blood Pressure 117/73 101/52 L 110/65 Pulse Oximetry 93 96 Oxygen Delivery Method Room Air Room Air BMI result Body Mass Index 31.2 Labs 06/17/23 09:06 Imaging Radiology Impressions: ITS Impressions Wrist X-Ray 06/20/23 08:40 IMPRESSION: Linear sclerotic focus distal metadiaphysis of the fifth metacarpal without cortical discontinuity/displacement. An occult fracture cannot be excluded. This corresponds to the marker placed at the site of trauma. Short interval follow-up may be considered. Medications Medications Current Medications Acetaminophen (Acetaminophen 325 Mg Tablet) 975 mg PO Q6H PRN PRN Reason: moderate pain Last Admin: 06/28/23 12:20 Dose: 975 mg Al Hydroxide/Mg Hydroxide (Magnesium Hydrox/Alum Hydrox 30 Ml Oral.Susp) 30 ml PO Q6H PRN PRN Reason: Heartburn/Nausea Last Admin: 06/20/23 15:45 Dose: 30 ml Benzocaine (Throat Lozenge, Medicated Lozenge) 1 lozenge MUCOUS MEM Q2H PRN PRN Reason: Sore Throat Last Admin: 06/25/23 22:04 Dose: 1 lozenge Benztropine Mesylate (Benztropine Mesylate 1 Mg Tablet) 1 mg PO Q6H PRN PRN Reason: give with haldol PRN Last Admin: 06/28/23 16:51 Dose: 1 mg Buspirone HCl (Buspirone Hcl 10 Mg Tablet) 10 mg PO DAILY [facility] Last Admin: 06/28/23 08:44 Dose: 10 mg Fluoxetine HCl (Fluoxetine Hcl 20 Mg Capsule) 80 mg PO DAILY [facility] Last Admin: 06/28/23 08:44 Dose: 80 mg Fluticasone Propionate (Fluticasone Propionate Nasal 16 Gm [place]) 1 spray NOSTRIL-B BID PRN PRN Reason: Nasal Congestion Haloperidol (Haloperidol 5 Mg Tablet) 5 mg PO Q6H PRN PRN Reason: agitation Last Admin: 06/28/23 16:51 Dose: 5 mg Hydroxyzine HCl (Hydroxyzine Hcl 50 Mg Tablet) 50 mg PO Q6H PRN PRN Reason: Anxiety Last Admin: 06/28/23 10:12 Dose: 50 mg Lidocaine (Lidocaine 4 % Patch Adh..Patch) 1 patch TRANSDERMA DAILY PRN; Protocol PRN Reason: sternal pain Last Admin: 06/20/23 12:16 Dose: 1 patch Lorazepam (Lorazepam 0.5 Mg Tablet) 0.5 mg PO TID PRN PRN Reason: Anxiety Last Admin: 06/28/23 15:24 Dose: 0.5 mg Magnesium Hydroxide (Milk Of Magnesia 30 Ml Oral.Susp) 30 ml PO DAILY PRN PRN Reason: Constipation Magnesium Oxide (Magnesium Oxide 400 Mg Tablet) 400 mg PO DAILY [facility] Last Admin: 06/28/23 08:44 Dose: 400 mg Multivitamins/Vitamin C (Multivitamin Tablet) 1 tab PO DAILY [facility] Last Admin: 06/28/23 08:44 Dose: 1 tab Ondansetron HCl (Ondansetron Odt 4 Mg Tab.Rapdis) 4 mg TRANSLINGU Q6H PRN PRN Reason: Nausea and Vomiting Last Admin: 06/21/23 14:10 Dose: 4 mg Prazosin HCl (Prazosin Hcl 1 Mg Capsule) 6 mg PO BEDTIME [facility]; Protocol Last Admin: 06/27/23 21:59 Dose: 6 mg Quetiapine Fumarate (Quetiapine Fumarate 50 Mg Tablet) 50 mg PO BEDTIME [facility] Last Admin: 06/27/23 21:59 Dose: 50 mg Quetiapine Fumarate (Quetiapine Fumarate 50 Mg Tablet) 50 mg PO BEDTIME PRN PRN Reason: insomnia Last Admin: 06/28/23 02:13 Dose: 50 mg Simethicone (Simethicone 80 Mg Tab.Chew) 80 mg PO QIDWMHS [facility] Last Admin: 06/28/23 12:28 Dose: 80 mg Sumatriptan Succinate (Sumatriptan Succinate 100 Mg Tablet) 100 mg PO DAILY MRX1 PRN PRN Reason: Migraine Headache Last Admin: 06/19/23 14:04 Dose: 100 mg Trazodone HCl (Trazodone Hcl 50 Mg Tablet) 50 mg PO BEDTIME MRX1 PRN PRN Reason: Insomnia Allergies Allergies Allergy/AdvReac Type Severity Reaction Status Date / Time lithium Allergy Unknown Unknown Verified 06/16/23 21:49 metformin Allergy Unknown Unknown Verified 06/16/23 21:49 NSAIDS (Non-Steroidal Allergy Unknown Unknown Verified 06/16/23 21:49 Anti-Inflamma propoxyphene Allergy Unknown Unknown Verified 06/16/23 21:49 sulfamethoxazole Allergy Unknown Unknown Verified 06/16/23 21:49 trimethoprim Allergy Unknown Unknown Verified 06/16/23 21:49 duloxetine AdvReac Unknown Nausea Verified 06/17/23 02:58 oxcarbazepine AdvReac Unknown Unknown Verified 06/16/23 21:49 Assessment & Plan Assessment & Plan (1) Major depressive disorder, recurrent episode: Status: Acute Code(s): F33.9 - Major depressive disorder, recurrent, unspecified (2) Chronic post-traumatic stress disorder (PTSD): Status: Acute Code(s): F43.12 - Post-traumatic stress disorder, chronic Plan Pt is a 52-year-old female with a PMH significant for?fibromyalgia, migraines, chronic lower back pain, borderline personality trait, PTSD, and depression who is admitted to [facility] psychiatry unit for increased depression and suicide attempt by overdosing on Ativan, Tylenol, and tizanidine. Patient was found slumped over and unresponsive at a hotel desk. Given multiple doses intranasal and IV Narcan with little change. Was given [id number] ventilation on route to ED where she was subsequently intubated for airway protection. Was eventually extubated and started on Unasyn for suspected aspiration. Medical consult for admission H&P and ECT clearance. Mood disorder Plan as per Psychiatry ECT clearance EKG pending Otherwise there are no obvious contraindications to the planned procedure Coarse crackles on auscultation Likely secondary to aspiration from overdose Continue Augmentin Abdominal cramping/discomfort, nausea Will give Gas-X Milk of magnesia and or Colace if constipation returns Ondansetron p.r.n. nausea Migraines Continue topiramate, sumatriptan Chronic lower back pain Continue tizanidine Will follow until EKG is completed. 06/16: continue most of outpatient regimen, including buspar, prozac, ativan, prozazc, seroquel. taper and DC topamax as not presently indicated and as relatively contraindicated for ECT. she had been taking it for cocaine cravings, and she is no longer substantially concerned about cocaine use. pt uses victoza daily SQ injections; she does not have medication with her and [place] [facility] said medication will be held until discharge. continue bactrim DS BID for 3 days for aspiration PNA. consult for medical clearance for ECT and ECT consult to Dr Marie. 06/18/23 - ok prn tylenol- lfts ok and tyl lvl 06/14 less 15 -CTP with pending ECT for depression/si 06/19/23 will be npo tonight in hopes of add on for ECT tomorrow 06/19: outburst due to not having expected ECT this morning. consult verbally communicated to yasmine. medically cleared for ECT. increase prazosin to 4 mg QHS for nightmares and insomnia in PTSD. increase daytime hydroxyzine PRNs to 50 mg each. hoping to start ECT . seroquel 50 mg QHS scheduled for insomnia. 06/20: assessed by yasmine for ECT, accepted to start tomorrow. F/U with [facility] re xray and flatulence mgmt. 06/21: s/p ECT #1 today. no complications. scheduled simethicone. recheck wrist xray. otherwise continue current mgmt. 06/22: not interested in xray, wrist feeling much better. increase prazosin to 5 mg QHS for sleep/nightmares. ECT #2 tomorrow. pt feeling very dramatically improved since ECT #1. 06/23: awaiting ECT #2 today. continues with improved mod but poor sleep/nightmares. increase prazosin to 6 mg QHS. 6: no changes 06/25: no changes 06/26: completed ECT #3 today. mood improved, appears well. continue current mgmt. 06/27: stable presentation, much improved. ECT #4 tomorrow. continue current mgmt. Reason for continued inpatient stay Substantial Risk for: harm to self, inability to function and rapid decompensation Time Spent With Patient Time: Total time managing care of this patient today _25___ minutes.
[2023-06-28 21:00] VITALS: BP 129/80; PULSE 59; RESP 16; TEMP 37.1; O2SAT 97
[2023-06-28] MEDS: Prazosin HCL 1 MG CAPSULE 6 MG PO (21:07)
--- NOTE | 2023-06-28 22:41 | PC.NURSE ---
Keke given Atarax PO prn for anxiety 06/28
--- NOTE | 2023-06-28 22:47 | PC.NURSE ---
Patient reports feeling restless and slightly agitated with not being able to fall asleep. Patient given Haldol PO prn.
[2023-06-29] VITALS (10 sets, daily range): BP systolic 105–164; BP diastolic 65–96; PULSE 60–89; RESP 12–18; TEMP 36.4–37.1; O2SAT 93–99
--- NOTE | 2023-06-29 06:57 | P.CONAN_ITS ---
HPI - Anesthesia Eval Consult details Narrative: Major Depressive Disorder PMF Active Problems Active Problems: All Active Problems Cannabis use with anxiety disorder (Acute) Cocaine use disorder in remission (Acute) Chronic post-traumatic stress disorder (PTSD) (Acute) Major depressive disorder, recurrent episode (Acute) Pre-op evaluation (Acute) Medical clearance for psychiatric admission (Acute) Past Medical History Medical History Chronic low back pain Fibromyalgia Migraine Family History Family history of problems with anesthesia: No Surgical History History of Problems with Anesthesia: No Social History Social History Household Members: None Housing: Apartment Do you presently have visiting nurse or other home services: Yes ([employer], 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) Patient Tobacco Use Status: Never used Tobacco Smoked in Last 30 Days: No e-Cigarette/Vaping Use: Never Used Patient Interested in Nicotine Replacement: No Patient Given Instructions on How to Stop Smoking: No Use of substances other than those prescribed or required for medical reasons: Yes Substance Use Type: Marijuana Substance Use Frequency: Daily Last Used Substance: Just Prior to Admission Last Used Substance Other:: once joint a day Currently Displaying Signs/Symptoms of Drug Intoxication Withdrawal: No Any prior treatment program specific to substance use: No Have you been hit, kicked, punched, or otherwise hurt by someone within the past year? If so, by whom?: No Do you feel safe in your current relationship?: No Current Relationship Is there a partner from a previous relationship who is making you feel unsafe now?: No Are you made to feel afraid or neglected: No Are you DNR?: No Advance Directives: No Advance Directives Information Provided: No Do you have thoughts of harming others: None Do you have a plan to hurt others: No Plan Recently lost weight without trying: No How much weight loss: Not applicable Eating poorly because of decreased appetite: No Nutrition screen score: 0 Nutrition Risks: No Nutritional Risk Patient : No : No Poor oral hygiene: No service: No Sexual orientation: Don't Know Meds Allergies Allergy/AdvReac Type Severity Reaction Status Date / Time lithium Allergy Unknown Unknown Verified 06/16/23 21:49 metformin Allergy Unknown Unknown Verified 06/16/23 21:49 NSAIDS (Non-Steroidal Allergy Unknown Unknown Verified 06/16/23 21:49 Anti-Inflamma propoxyphene Allergy Unknown Unknown Verified 06/16/23 21:49 sulfamethoxazole Allergy Unknown Unknown Verified 06/16/23 21:49 trimethoprim Allergy Unknown Unknown Verified 06/16/23 21:49 duloxetine AdvReac Unknown Nausea Verified 06/17/23 02:58 oxcarbazepine AdvReac Unknown Unknown Verified 06/16/23 21:49 Active Medications: Current Medications Acetaminophen (Acetaminophen 325 Mg Tablet) 975 mg PO Q6H PRN PRN Reason: moderate pain Last Admin: 06/28/23 12:20 Dose: 975 mg Al Hydroxide/Mg Hydroxide (Magnesium Hydrox/Alum Hydrox 30 Ml Oral.Susp) 30 ml PO Q6H PRN PRN Reason: Heartburn/Nausea Last Admin: 06/20/23 15:45 Dose: 30 ml Benzocaine (Throat Lozenge, Medicated Lozenge) 1 lozenge MUCOUS MEM Q2H PRN PRN Reason: Sore Throat Last Admin: 06/25/23 22:04 Dose: 1 lozenge Benztropine Mesylate (Benztropine Mesylate 1 Mg Tablet) 1 mg PO Q6H PRN PRN Reason: give with haldol PRN Last Admin: 06/28/23 16:51 Dose: 1 mg Buspirone HCl (Buspirone Hcl 10 Mg Tablet) 10 mg PO DAILY [facility] Last Admin: 06/28/23 08:44 Dose: 10 mg Fluoxetine HCl (Fluoxetine Hcl 20 Mg Capsule) 80 mg PO DAILY [facility] Last Admin: 06/28/23 08:44 Dose: 80 mg Fluticasone Propionate (Fluticasone Propionate Nasal 16 Gm [place]) 1 spray NOST RIL-B BID PRN PRN Reason: Nasal Congestion Haloperidol (Haloperidol 5 Mg Tablet) 5 mg PO Q6H PRN PRN Reason: agitation Last Admin: 06/28/23 22:46 Dose: 5 mg Hydroxyzine HCl (Hydroxyzine Hcl 50 Mg Tablet) 50 mg PO Q6H PRN PRN Reason: Anxiety Last Admin: 06/28/23 21:11 Dose: 50 mg Lidocaine (Lidocaine 4 % Patch Adh..Patch) 1 patch TRANSDERMA DAILY PRN; Protocol PRN Reason: sternal pain Last Admin: 06/20/23 12:16 Dose: 1 patch Lorazepam (Lorazepam 0.5 Mg Tablet) 0.5 mg PO TID PRN PRN Reason: Anxiety Last Admin: 06/28/23 15:24 Dose: 0.5 mg Magnesium Hydroxide (Milk Of Magnesia 30 Ml Oral.Susp) 30 ml PO DAILY PRN PRN Reason: Constipation Magnesium Oxide (Magnesium Oxide 400 Mg Tablet) 400 mg PO DAILY [facility] Last Admin: 06/28/23 08:44 Dose: 400 mg Multivitamins/Vitamin C (Multivitamin Tablet) 1 tab PO DAILY [facility] Last Admin: 06/28/23 08:44 Dose: 1 tab Ondansetron HCl (Ondansetron Odt 4 Mg Tab.Rapdis) 4 mg TRANSLINGU Q6H PRN PRN Reason: Nausea and Vomiting Last Admin: 06/21/23 14:10 Dose: 4 mg Prazosin HCl (Prazosin Hcl 1 Mg Capsule) 6 mg PO BEDTIME [facility]; Protocol Last Admin: 06/28/23 21:07 Dose: 6 mg Quetiapine Fumarate (Quetiapine Fumarate 50 Mg Tablet) 50 mg PO BEDTIME [facility] Last Admin: 06/28/23 21:07 Dose: 50 mg Quetiapine Fumarate (Quetiapine Fumarate 50 Mg Tablet) 50 mg PO BEDTIME PRN PRN Reason: insomnia Last Admin: 06/28/23 02:13 Dose: 50 mg Simethicone (Simethicone 80 Mg Tab.Chew) 80 mg PO QIDWMHS [facility] Last Admin: 06/28/23 21:07 Dose: 80 mg Sumatriptan Succinate (Sumatriptan Succinate 100 Mg Tablet) 100 mg PO DAILY MRX1 PRN PRN Reason: Migraine Headache Last Admin: 06/19/23 14:04 Dose: 100 mg Trazodone HCl (Trazodone Hcl 50 Mg Tablet) 50 mg PO BEDTIME MRX1 PRN PRN Reason: Insomnia Home Medications ?Medication ?Instructions ?Recorded ?Confirmed ?Last Taken ?Type buspirone 10 mg tablet 10 mg PO TID 06/17/23 06/17/23 06/16/23 23:45 History cholecalciferol (vitamin D3) 50 50 mcg PO DAILY 06/17/23 06/17/23 Unknown History mcg (2,000 unit) tablet (Vitamin D3) fluoxetine 80 mg PO DAILY 06/17/23 06/17/23 06/16/23 09:02 History liraglutide 0.6 mg/0.1 mL (18 mg/3 1.8 mg subcut DAILY 06/17/23 06/17/23 Unknown History mL) subcutaneous pen injector (Victoza 3-Kyaw) lorazepam 0.5 mg tablet 0.5 mg PO TID PRN anxiety 06/17/23 06/17/23 Unknown History ondansetron 4 mg disintegrating 4 mg translingual Q8H PRN Nausea 06/17/23 06/17/23 Unknown History tablet quetiapine 50 mg tablet 50 mg PO BEDTIME 06/17/23 06/17/23 06/16/23 23:45 History sumatriptan succinate 100 mg tablet 100 mg PO 2XW 06/17/23 06/17/23 Unknown History tizanidine 4 mg tablet 4 mg PO Q12H PRN Muscle Pain 06/17/23 06/17/23 Unknown History topiramate 25 mg tablet 75 mg PO BID 06/17/23 06/17/23 06/16/23 23:45 History Exam Height,Weight and Vital Signs: Height 5 ft 6 in Weight 87.713 kg Last Vital Signs Temp 98.6 F 06/29/23 06:00 Pulse 77 06/29/23 06:00 Resp 14 06/29/23 06:00 BP 134/80 06/29/23 06:00 Pulse Ox 95 06/29/23 06:00 O2 Del Method Room Air 06/28/23 21:00 O2 Flow Rate 2 06/27/23 14:56 Pertinent Lab Results Pertinent Lab Results: Laboratory Tests 06/17/23 06/25/23 06/26/23 09:06 11:08 02:45 Sodium 141 Potassium 4.3 Chloride 112 H Carbon Dioxide 23 Anion Gap 10 L BUN 9 Creatinine 0.81 Estim Creat Clear Calc 91.6 Estimated GFR > 60 Fasting Glucose 82 Calcium 9.3 Total Bilirubin 0.2 AST 13 ALT 13 Alkaline Phosphatase 49 Total Protein 6.3 L Albumin 3.5 Triglycerides 64 Cholesterol 182 LDL Cholesterol, Calc 92 HDL Cholesterol 78 T.pallidum Ab (EIA) Reactive A Chlam trachomat DNA PCR NOT DETECTED HIV 1&2 Ab/P24 Ag 4thGn Nonreactive N.gonorrhoeae DNA (PCR) NOT DETECTED Airway Mallampati Class: II TM Dist: >3cm Neck ROM: Full Loose/Missing/Broken Teeth: Yes (Yes (Missing teeth top back right. Denies broke n or loose teeth )) Heart: [id number] Lungs: cta b/l Assessment and Plan Assessment Anesthesia Assessment: Anesthesia Plan Discussed and Chart Reviewed Final Anesthetic Review Family History of Problems with Anesthesia: No History of Problems with Anesthesia: No NPO: Yes ASA Class: III Final Preanesthetic Review: No Changes in Pt Med Stat, Meds/Allgs Chart Reviewed, Consent Obtained/Reviewed and Anes Risks/Benef Reviewed Patient Risk: Intermediate Procedure Risk: Intermediate Assessment/Block/Sedation in SS: Assess/Block/Sedation-SS Anesthetic Plan Anesthetic Plan: GA and Agree w/ Assess. and Plan Disposition: Standard PACU
--- NOTE | 2023-06-29 07:37 | MHC.SHP ---
Pre-Procedural Eval Section A - 24 Hr Update-Section A only Date of Service: 06/29/23 The patient is an INPATIENT: Yes Changes since office visit: No Cold of Flu in the past 2 weeks, No New Medical Problems, No Changes in Medication and No Patient answered all questions The patient has been examined within 24 hours of the surgical procedure. The History & Physical has been completed within 30 days and I have reviewed it.: Yes Section B - Complete if H&P > 30 days Chief Complaint: PTSD and BPD Allergies: Allergies Allergy/AdvReac Type Severity Reaction Status Date / Time lithium Allergy Unknown Unknown Verified 06/16/23 21:49 metformin Allergy Unknown Unknown Verified 06/16/23 21:49 NSAIDS (Non-Steroidal Allergy Unknown Unknown Verified 06/16/23 21:49 Anti-Inflamma propoxyphene Allergy Unknown Unknown Verified 06/16/23 21:49 sulfamethoxazole Allergy Unknown Unknown Verified 06/16/23 21:49 trimethoprim Allergy Unknown Unknown Verified 06/16/23 21:49 duloxetine AdvReac Unknown Nausea Verified 06/17/23 02:58 oxcarbazepine AdvReac Unknown Unknown Verified 06/16/23 21:49 Plan I have reviewed the history and physical and performed a pertinent physical examination on my patient. No changes have occurred unless specified. Time Spent With Patient Time: Total time managing care of this patient today ____ minutes.
--- NOTE | 2023-06-29 07:38 | HO.ECTPROC ---
ECT Procedure Note Diagnosis/Treatment Date of Service: 06/29/23 Diagnosis: Major Depressive Disorder and Other (ptsd) Previous ECT Date: 06/27/23 Current Treatment Number: 4 Treatment: Series Interval Clinical Notes: pt shows great improvement future oriented no c/o side effects Anesthesia changed from 2 Brevital patient tolerated this better cont plan of care Time: Total time managing care of this patient today ____ minutes. ECT Settings Device: THYMATRON DGx Seizure Duration By EEG (in seconds): 50 Medications Administration General Anesthetic: Methohexital (120) Muscle Relaxant: Succinylcholine (140) Ancillary Medications Cardiovascular Medications: Glycopyrrolate (0.2) Miscillaneous Medications: Propofol (30) Airway Management Airway Management: Bag Mask Ventilation Treatment Recommendations No Changes Recommended: No change
[2023-06-29] MEDS: LORazepam 0.5 MG TABLET PO ×2 (09:06→14:11)
[2023-06-29] MEDS: Multivitamin TABLET 1 TAB PO (09:06)
[2023-06-29] MEDS: busPIRone HCl 10 MG TABLET PO (09:06)
[2023-06-29] MEDS: Magnesium Oxide 400 MG TABLET PO (09:06)
[2023-06-29] MEDS: FLUoxetine HCl 20 MG CAPSULE 80 MG PO (09:06)
[2023-06-29] MEDS: Simethicone 80 MG TAB.CHEW PO ×3 (09:07→20:08)
[2023-06-29] MEDS: Benztropine Mesylate 1 MG TABLET PO ×2 (11:11→17:11)
[2023-06-29] MEDS: HaloperidoL 5 MG TABLET PO ×2 (11:11→17:11)
[2023-06-29] MEDS: hydrOXYzine HCL 50 MG TABLET PO ×2 (14:11→20:08)
--- NOTE | 2023-06-29 15:49 | P.PNPSI_ITS ---
Subjective Subjective Date of Service: 06/29/23 Reason For Visit: PTSD and BPD Interim History: feeling well. ECT went fine today. discussed no ECT tuesday, pt opts to have final Tx tuesday and then discharge tuesday. per staff, mild dep, some anxiety. taking numerous PRNs. no SI/AVH. had haldol/atarax PRN, did not sleep well after, about 4 hours. Mental Status Exam Mental Status Exam Narrative: Pleasant. Engaged. Casually dressed presented. Good hygiene. Organized. Bright affect. No SI. No HI. No agitation or psychosis. Insight and judgment good Diagnostics Vital Signs (24Hr): Vital Signs - 24 hr 06/28/23 21:00 06/29/23 06:00 06/29/23 06:57 Temperature 98.7 F 98.6 F 97.5 F Pulse Rate 59 77 63 Respiratory Rate 16 14 15 Blood Pressure 129/80 134/80 107/65 Pulse Oximetry 97 95 94 Oxygen Delivery Method Room Air Room Air Oxygen Flow Rate 06/29/23 08:00 06/29/23 08:05 06/29/23 08:10 Temperature 98.8 F Pulse Rate 89 82 83 Respiratory Rate 12 16 16 Blood Pressure 164/96 H 118/79 114/80 Pulse Oximetry 95 97 93 Oxygen Delivery Method Nasal Cannula with ETCO2 Nasal Cannula with ETCO2 Nasal Cannula with ETCO2 Oxygen Flow Rate 2 2 2 06/29/23 08:15 06/29/23 08:30 06/29/23 08:45 Temperature 98.8 F Pulse Rate 86 84 80 Respiratory Rate 16 16 18 Blood Pressure 118/83 117/84 127/89 Pulse Oximetry 93 96 95 Oxygen Delivery Method Nasal Cannula with ETCO2 Room Air Room Air Oxygen Flow Rate 1 06/29/23 09:00 06/29/23 09:00 Temperature 97.6 F 97.6 F Pulse Rate 73 73 Respiratory Rate 16 16 Blood Pressure 105/72 105/72 Pulse Oximetry 95 95 Oxygen Delivery Method Room Air Oxygen Flow Rate BMI result Body Mass Index 31.2 Labs 06/17/23 09:06 Imaging Radiology Impressions: ITS Impressions Wrist X-Ray 06/20/23 08:40 IMPRESSION: Linear sclerotic focus distal metadiaphysis of the fifth metacarpal without cortical discontinuity/displacement. An occult fracture cannot be excluded. This corresponds to the marker placed at the site of trauma. Short interval follow-up may be considered. Medications Medications Current Medications Acetaminophen (Acetaminophen 325 Mg Tablet) 975 mg PO Q6H PRN PRN Reason: moderate pain Last Admin: 06/28/23 12:20 Dose: 975 mg Al Hydroxide/Mg Hydroxide (Magnesium Hydrox/Alum Hydrox 30 Ml Oral.Susp) 30 ml PO Q6H PRN PRN Reason: Heartburn/Nausea Last Admin: 06/20/23 15:45 Dose: 30 ml Benzocaine (Throat Lozenge, Medicated Lozenge) 1 lozenge MUCOUS MEM Q2H PRN PRN Reason: Sore Throat Last Admin: 06/25/23 22:04 Dose: 1 lozenge Benztropine Mesylate (Benztropine Mesylate 1 Mg Tablet) 1 mg PO Q6H PRN PRN Reason: give with haldol PRN Last Admin: 06/29/23 11:11 Dose: 1 mg Buspirone HCl (Buspirone Hcl 10 Mg Tablet) 10 mg PO DAILY [facility] Last Admin: 06/29/23 09:06 Dose: 10 mg Fluoxetine HCl (Fluoxetine Hcl 20 Mg Capsule) 80 mg PO DAILY [facility] Last Admin: 06/29/23 09:06 Dose: 80 mg Fluticasone Propionate (Fluticasone Propionate Nasal 16 Gm [place]) 1 spray NOSTRIL-B BID PRN PRN Reason: Nasal Congestion Haloperidol (Haloperidol 5 Mg Tablet) 5 mg PO Q6H PRN PRN Reason: agitation Last Admin: 06/29/23 11:11 Dose: 5 mg Hydroxyzine HCl (Hydroxyzine Hcl 50 Mg Tablet) 50 mg PO Q6H PRN PRN Reason: Anxiety Last Admin: 06/29/23 14:11 Dose: 50 mg Lidocaine (Lidocaine 4 % Patch Adh..Patch) 1 patch TRANSDERMA DAILY PRN; Protocol PRN Reason: sternal pain Last Admin: 06/20/23 12:16 Dose: 1 patch Lorazepam (Lorazepam 0.5 Mg Tablet) 0.5 mg PO TID PRN PRN Reason: Anxiety Last Admin: 06/29/23 14:11 Dose: 0.5 mg Magnesium Hydroxide (Milk Of Magnesia 30 Ml Oral.Susp) 30 ml PO DAILY PRN PRN Reason: Constipation Magnesium Oxide (Magnesium Oxide 400 Mg Tablet) 400 mg PO DAILY [facility] Last Admin: 06/29/23 09:06 Dose: 400 mg Multivitamins/Vitamin C (Multivitamin Tablet) 1 tab PO DAILY [facility] Last Admin: 06/29/23 09:06 Dose: 1 tab Ondansetron HCl (Ondansetron Odt 4 Mg Tab.Rapdis) 4 mg TRANSLINGU Q6H PRN PRN Reason: Nausea and Vomiting Last Admin: 06/21/23 14:10 Dose: 4 mg Prazosin HCl (Prazosin Hcl 1 Mg Capsule) 6 mg PO BEDTIME [facility]; Protocol Last Admin: 06/28/23 21:07 Dose: 6 mg Quetiapine Fumarate (Quetiapine Fumarate 50 Mg Tablet) 50 mg PO BEDTIME [facility] Last Admin: 06/28/23 21:07 Dose: 50 mg Quetiapine Fumarate (Quetiapine Fumarate 50 Mg Tablet) 50 mg PO BEDTIME PRN PRN Reason: insomnia Last Admin: 06/28/23 02:13 Dose: 50 mg Simethicone (Simethicone 80 Mg Tab.Chew) 80 mg PO QIDWMHS [facility] Last Admin: 06/29/23 13:05 Dose: Not Given Sumatriptan Succinate (Sumatriptan Succinate 100 Mg Tablet) 100 mg PO DAILY MRX1 PRN PRN Reason: Migraine Headache Last Admin: 06/19/23 14:04 Dose: 100 mg Trazodone HCl (Trazodone Hcl 50 Mg Tablet) 50 mg PO BEDTIME MRX1 PRN PRN Reason: Insomnia Allergies Allergies Allergy/AdvReac Type Severity Reaction Status Date / Time lithium Allergy Unknown Unknown Verified 06/16/23 21:49 metformin Allergy Unknown Unknown Verified 06/16/23 21:49 NSAIDS (Non-Steroidal Allergy Unknown Unknown Verified 06/16/23 21:49 Anti-Inflamma propoxyphene Allergy Unknown Unknown Verified 06/16/23 21:49 sulfamethoxazole Allergy Unknown Unknown Verified 06/16/23 21:49 trimethoprim Allergy Unknown Unknown Verified 06/16/23 21:49 duloxetine AdvReac Unknown Nausea Verified 06/17/23 02:58 oxcarbazepine AdvReac Unknown Unknown Verified 06/16/23 21:49 Assessment & Plan Assessment & Plan (1) Major depressive disorder, recurrent episode: Status: Acute Code(s): F33.9 - Major depressive disorder, recurrent, unspecified (2) Chronic post-traumatic stress disorder (PTSD): Status: Acute Code(s): F43.12 - Post-traumatic stress disorder, chronic Plan Pt is a 52-year-old female with a PMH significant for?fibromyalgia, migraines, chronic lower back pain, borderline personality trait, PTSD, and depression who is admitted to [facility] psychiatry unit for increased depression and suicide attempt by overdosing on Ativan, Tylenol, and tizanidine. Patient was found slumped over and unresponsive at a hotel desk. Given multiple doses intranasal and IV Narcan with little change. Was given [id number] ventilation on route to ED where she was subsequently intubated for airway protection. Was eventually extubated and started on Unasyn for suspected aspiration. Medical consult for admission H&P and ECT clearance. Mood disorder Plan as per Psychiatry ECT clearance EKG pending Otherwise there are no obvious contraindications to the planned procedure Coarse crackles on auscultation Likely secondary to aspiration from overdose Continue Augmentin Abdominal cramping/discomfort, nausea Will give Gas-X Milk of magnesia and or Colace if constipation returns Ondansetron p.r.n. nausea Migraines Continue topiramate, sumatriptan Chronic lower back pain Continue tizanidine Will follow until EKG is completed. 06/16: continue most of outpatient regimen, including buspar, prozac, ativan, prozazc, seroquel. taper and DC topamax as not presently indicated and as relatively contraindicated for ECT. she had been taking it for cocaine cravings, and she is no longer substantially concerned about cocaine use. pt uses victoza daily SQ injections; she does not have medication with her and it is NF at [facility]. said medication will be held until discharge. continue bactrim DS BID for 3 days for aspiration PNA. consult for medical clearance for ECT and ECT consult to Dr Marie. 06/18/23 - ok prn tylenol- lfts ok and tyl lvl 06/14 less 15 -CTP with pending ECT for depression/si 06/19/23 will be npo tonight in hopes of add on for ECT tomorrow 06/19: outburst due to not having expected ECT this morning. consult verbally communicated to yasmine. medically cleared for ECT. increase prazosin to 4 mg QHS for nightmares and insomnia in PTSD. increase daytime hydroxyzine PRNs to 50 mg each. hoping to start ECT . seroquel 50 mg QHS scheduled for insomnia. 06/20: assessed by yasmine for ECT, accepted to start tomorrow. F/U with [facility] re xray and flatulence mgmt. 06/21: s/p ECT #1 today. no complications. scheduled simethicone. recheck wrist xray. otherwise continue current mgmt. 06/22: not interested in xray, wrist feeling much better. increase prazosin to 5 mg QHS for sleep/nightmares. ECT #2 tomorrow. pt feeling very dramatically improved since ECT #1. 06/23: awaiting ECT #2 today. continues with improved mod but poor sleep/nightmares. increase prazosin to 6 mg QHS. 06/24: no changes 06/25: no changes 06/26: completed ECT #3 today. mood improved, appears well. continue current mgmt. 06/27: stable presentation, much improved. ECT #4 tomorrow. continue current mgmt. 06/28: cogentin added for each haldol PRN due to akathisia. final ECT tuesday, then discharge tuesday, per pt preference. pt has own transportation. continues to feel much improved. Reason for continued inpatient stay Substantial Risk for: inability to function and rapid decompensation Time Spent With Patient Time: Total time managing care of this patient today __25__ minutes.
[2023-06-29] MEDS: traZODone HCL 50 MG TABLET PO (20:08)
[2023-06-29] MEDS: Prazosin HCL 1 MG CAPSULE 6 MG PO (20:08)
[2023-06-29] MEDS: QUEtiapine Fumarate 50 MG TABLET PO (20:08)
[2023-06-30 08:39] VITALS: BP 106/71; PULSE 62; RESP 16; TEMP 36.7; O2SAT 97
[2023-06-30] MEDS: Magnesium Oxide 400 MG TABLET PO (08:49)
[2023-06-30] MEDS: FLUoxetine HCl 20 MG CAPSULE 80 MG PO (08:49)
[2023-06-30] MEDS: Multivitamin TABLET 1 TAB PO (08:49)
[2023-06-30] MEDS: busPIRone HCl 10 MG TABLET PO (08:49)
[2023-06-30] MEDS: Simethicone 80 MG TAB.CHEW PO ×4 (08:49→20:25)
[2023-06-30] MEDS: Acetaminophen 325 MG TABLET 975 MG PO (09:28)
[2023-06-30] MEDS: HaloperidoL 5 MG TABLET PO ×2 (09:28→20:25)
[2023-06-30] MEDS: LORazepam 0.5 MG TABLET PO (09:29)
[2023-06-30] MEDS: Benztropine Mesylate 1 MG TABLET PO ×2 (09:37→20:25)
--- NOTE | 2023-06-30 17:46 | P.PNPSI_ITS ---
Subjective Subjective Date of Service: 06/30/23 Reason For Visit: PTSD and BPD Interim History: c/o agitation at [facility], difficulty sleeping. doesn't want to DC haldol, but willing to try seroquel PRN instead. last ECT tomorrow, planning to discharge tuesday. per staff, taking meds. ECT tomorrow. slept 8 hours. Mental Status Exam Mental Status Exam Narrative: Pleasant. Engaged. Casually dressed presented. Good hygiene. Organized. Bright affect. No SI. No HI. No agitation or psychosis. Insight and judgment good Diagnostics Vital Signs (24Hr): Vital Signs - 24 hr 06/29/23 20:17 06/30/23 08:39 Temperature 98.1 F 98.1 F Pulse Rate 60 62 Respiratory Rate 17 16 Blood Pressure 132/76 106/71 Pulse Oximetry 99 97 Oxygen Delivery Method Room Air Room Air BMI result Body Mass Index 31.2 Labs 06/17/23 09:06 Imaging Radiology Impressions: ITS Impressions Wrist X-Ray 06/20/23 08:40 IMPRESSION: Linear sclerotic focus distal metadiaphysis of the fifth metacarpal without cortical discontinuity/displacement. An occult fracture cannot be excluded. This corresponds to the marker placed at the site of trauma. Short interval follow-up may be considered. Medications Medications Current Medications Acetaminophen (Acetaminophen 325 Mg Tablet) 975 mg PO Q6H PRN PRN Reason: moderate pain Last Admin: 06/30/23 09:28 Dose: 975 mg Al Hydroxide/Mg Hydroxide (Magnesium Hydrox/Alum Hydrox 30 Ml Oral.Susp) 30 ml PO Q6H PRN PRN Reason: Heartburn/Nausea Last Admin: 06/20/23 15:45 Dose: 30 ml Benzocaine (Throat Lozenge, Medicated Lozenge) 1 lozenge MUCOUS MEM Q2H PRN PRN Reason: Sore Throat Last Admin: 06/25/23 22:04 Dose: 1 lozenge Benztropine Mesylate (Benztropine Mesylate 1 Mg Tablet) 1 mg PO Q6H PRN PRN Reason: give with haldol PRN Last Admin: 06/30/23 09:37 Dose: 1 mg Buspirone HCl (Buspirone Hcl 10 Mg Tablet) 10 mg PO DAILY [facility] Last Admin: 06/30/23 08:49 Dose: 10 mg Fluoxetine HCl (Fluoxetine Hcl 20 Mg Capsule) 80 mg PO DAILY [facility] Last Admin: 06/30/23 08:49 Dose: 80 mg Fluticasone Propionate (Fluticasone Propionate Nasal 16 Gm [place]) 1 spray NOSTRIL-B BID PRN PRN Reason: Nasal Congestion Haloperidol (Haloperidol 5 Mg Tablet) 5 mg PO Q6H PRN PRN Reason: agitation Last Admin: 06/30/23 09:28 Dose: 5 mg Hydroxyzine HCl (Hydroxyzine Hcl 50 Mg Tablet) 50 mg PO Q6H PRN PRN Reason: Anxiety Last Admin: 06/29/23 20:08 Dose: 50 mg Lidocaine (Lidocaine 4 % Patch Adh..Patch) 1 patch TRANSDERMA DAILY PRN; Protocol PRN Reason: sternal pain Last Admin: 06/20/23 12:16 Dose: 1 patch Lorazepam (Lorazepam 0.5 Mg Tablet) 0.5 mg PO TID PRN PRN Reason: Anxiety Last Admin: 06/30/23 09:29 Dose: 0.5 mg Magnesium Hydroxide (Milk Of Magnesia 30 Ml Oral.Susp) 30 ml PO DAILY PRN PRN Reason: Constipation Magnesium Oxide (Magnesium Oxide 400 Mg Tablet) 400 mg PO DAILY [facility] Last Admin: 06/30/23 08:49 Dose: 400 mg Multivitamins/Vitamin C (Multivitamin Tablet) 1 tab PO DAILY [facility] Last Admin: 06/30/23 08:49 Dose: 1 tab Ondansetron HCl (Ondansetron Odt 4 Mg Tab.Rapdis) 4 mg TRANSLINGU Q6H PRN PRN Reason: Nausea and Vomiting Last Admin: 06/21/23 14:10 Dose: 4 mg Prazosin HCl (Prazosin Hcl 1 Mg Capsule) 6 mg PO BEDTIME [facility]; Protocol Last Admin: 06/29/23 20:08 Dose: 6 mg Quetiapine Fumarate (Quetiapine Fumarate 50 Mg Tablet) 50 mg PO BEDTIME [facility] Last Admin: 06/29/23 20:08 Dose: 50 mg Quetiapine Fumarate (Quetiapine Fumarate 50 Mg Tablet) 50 mg PO Q4H PRN PRN Reason: agitation Simethicone (Simethicone 80 Mg Tab.Chew) 80 mg PO QIDWMHS [facility] Last Admin: 06/30/23 12:36 Dose: 80 mg Sumatriptan Succinate (Sumatriptan Succinate 100 Mg Tablet) 100 mg PO DAILY MRX1 PRN PRN Reason: Migraine Headache Last Admin: 06/19/23 14:04 Dose: 100 mg Trazodone HCl (Trazodone Hcl 50 Mg Tablet) 50 mg PO BEDTIME MRX1 PRN PRN Reason: Insomnia Last Admin: 06/29/23 20:08 Dose: 50 mg Allergies Allergies Allergy/AdvReac Type Severity Reaction Status Date / Time lithium Allergy Unknown Unknown Verified 06/16/23 21:49 metformin Allergy Unknown Unknown Verified 06/16/23 21:49 NSAIDS (Non-Steroidal Allergy Unknown Unknown Verified 06/16/23 21:49 Anti-Inflamma propoxyphene Allergy Unknown Unknown Verified 06/16/23 21:49 sulfamethoxazole Allergy Unknown Unknown Verified 06/16/23 21:49 trimethoprim Allergy Unknown Unknown Verified 06/16/23 21:49 duloxetine AdvReac Unknown Nausea Verified 06/17/23 02:58 oxcarbazepine AdvReac Unknown Unknown Verified 06/16/23 21:49 Assessment & Plan Assessment & Plan (1) Major depressive disorder, recurrent episode: Status: Acute Code(s): F33.9 - Major depressive disorder, recurrent, unspecified (2) Chronic post-traumatic stress disorder (PTSD): Status: Acute Code(s): F43.12 - Post-traumatic stress disorder, chronic Plan Pt is a 52-year-old female with a PMH significant for?fibromyalgia, migraines, chronic lower back pain, borderline personality trait, PTSD, and depression who is admitted to [facility] unit for increased depression and suicide attempt by overdosing on Ativan, Tylenol, and tizanidine. Patient was found slumped over and unresponsive at a hotel desk. Given multiple doses intranasal and IV Narcan with little change. Was given [id number] ventilation on route to ED where she was subsequently intubated for airway protection. Was eventually extubated and started on Unasyn for suspected aspiration. Medical consult for admission H&P and ECT clearance. Mood disorder Plan as per Psychiatry ECT clearance EKG pending Otherwise there are no obvious contraindications to the planned procedure Coarse crackles on auscultation Likely secondary to aspiration from overdose Continue Augmentin Abdominal cramping/discomfort, nausea Will give Gas-X Milk of magnesia and or Colace if constipation returns Ondansetron p.r.n. nausea Migraines Continue topiramate, sumatriptan Chronic lower back pain Continue tizanidine Will follow until EKG is completed. 06/16: continue most of outpatient regimen, including buspar, prozac, ativan, prozazc, seroquel. taper and DC topamax as not presently indicated and as relatively contraindicated for ECT. she had been taking it for cocaine cravings, and she is no longer substantially concerned about cocaine use. pt uses victoza daily SQ injections; she does not have medication with her and it is [place] [facility]. said medication will be held until discharge. continue bactrim DS BID for 3 days for aspiration PNA. consult for medical clearance for ECT and ECT consult to Dr Marie. 06/18/23 - ok prn tylenol- lfts ok and tyl lvl 06/14 less 15 -CTP with pending ECT for depression/si 06/19/23 will be npo tonight in hopes of add on for ECT tomorrow 06/19: outburst due to not having expected ECT this morning. consult verbally communicated to yasmine. medically cleared for ECT. increase prazosin to 4 mg QHS for nightmares and insomnia in PTSD. increase daytime hydroxyzine PRNs to 50 mg each. hoping to start ECT . seroquel 50 mg QHS scheduled for insomnia. 06/20: assessed by yasmine for ECT, accepted to start tomorrow. F/U with [facility] re xray and flatulence mgmt. 06/21: s/p ECT #1 today. no complications. scheduled simethicone. recheck wrist xray. otherwise continue current mgmt. 06/22: not interested in xray, wrist feeling much better. increase prazosin to 5 mg QHS for sleep/nightmares. ECT #2 tomorrow. pt feeling very dramatically improved since ECT #1. 06/23: awaiting ECT #2 today. continues with improved mod but poor sleep/nightmares. increase prazosin to 6 mg QHS. 06/24: no changes 06/25: no changes 06/26: completed ECT #3 today. mood improved, appears well. continue current mgmt. 06/27: stable presentation, much improved. ECT #4 tomorrow. continue current mgmt. 06/28: nikolai added for each haldol PRN due to akathisia. final ECT tuesday, then discharge tuesday, per pt preference. pt has own transportation. continues to feel much improved. 06/29: seroquel PRNs for agitation added as an alternative to haldol. final ECT tomorrow, then DC home tuesday. Reason for continued inpatient stay Substantial Risk for: inability to function and rapid decompensation Time Spent With Patient Time: Total time managing care of this patient today _25___ minutes.
[2023-06-30 20:10] VITALS: BP 101/66; PULSE 58; RESP 16; TEMP 36.4; O2SAT 95
[2023-06-30] MEDS: Prazosin HCL 1 MG CAPSULE 6 MG PO (20:24)
[2023-06-30] MEDS: QUEtiapine Fumarate 50 MG TABLET PO (20:25)
[2023-06-30] MEDS: traZODone HCL 50 MG TABLET PO (20:25)
--- NOTE | 2023-06-30 21:00 | PC.NURSE ---
Keke reported feeling some agitation. Patient given Haldol PO prn, Cogentin PO prn, and TRazodone PO prn to help her sleep.
[2023-07-01] VITALS (10 sets, daily range): BP systolic 96–140; BP diastolic 50–68; PULSE 61–83; RESP 13–18; TEMP 36.2–37.2; O2SAT 93–98
--- NOTE | 2023-07-01 06:59 | HO.ANESPROP2 ---
[facility] Active Problems Active Problems: All Active Problems Cannabis use with anxiety disorder (Acute) Cocaine use disorder in remission (Acute) Chronic post-traumatic stress disorder (PTSD) (Acute) Major depressive disorder, recurrent episode (Acute) Pre-op evaluation (Acute) Medical clearance for psychiatric admission (Acute) Past Medical History Medical History Chronic low back pain Fibromyalgia Migraine Family History Family history of problems with anesthesia: No Surgical History History of Problems with Anesthesia: No Social History Social History Household Members: None Housing: Apartment Do you presently have visiting nurse or other home services: Yes ([employer], [employer]) Patient Tobacco Use Status: Never used Tobacco Smoked in Last 30 Days: No e-Cigarette/Vaping Use: Never Used Patient Interested in Nicotine Replacement: No Patient Given Instructions on How to Stop Smoking: No Use of substances other than those prescribed or required for medical reasons: Yes Substance Use Type: Marijuana Substance Use Frequency: Daily Last Used Substance: Just Prior to Admission Last Used Substance Other:: once joint a day Currently Displaying Signs/Symptoms of Drug Intoxication Withdrawal: No Any prior treatment program specific to substance use: No Have you been hit, kicked, punched, or otherwise hurt by someone within the past year? If so, by whom?: No Do you feel safe in your current relationship?: No Current Relationship Is there a partner from a previous relationship who is making you feel unsafe now?: No Are you made to feel afraid or neglected: No Are you DNR?: No Advance Directives: No Advance Directives Information Provided: No Do you have thoughts of harming others: None Do you have a plan to hurt others: No Plan Recently lost weight without trying: No How much weight loss: Not applicable Eating poorly because of decreased appetite: No Nutrition screen score: 0 Nutrition Risks: No Nutritional Risk Patient : No : No Poor oral hygiene: No service: No Sexual orientation: Don't Know Meds Allergies Allergy/AdvReac Type Severity Reaction Status Date / Time lithium Allergy Unknown Unknown Verified 06/16/23 21:49 metformin Allergy Unknown Unknown Verified 06/16/23 21:49 NSAIDS (Non-Steroidal Allergy Unknown Unknown Verified 06/16/23 21:49 Anti-Inflamma propoxyphene Allergy Unknown Unknown Verified 06/16/23 21:49 sulfamethoxazole Allergy Unknown Unknown Verified 06/16/23 21:49 trimethoprim Allergy Unknown Unknown Verified 06/16/23 21:49 duloxetine AdvReac Unknown Nausea Verified 06/17/23 02:58 oxcarbazepine AdvReac Unknown Unknown Verified 06/16/23 21:49 Active Medications: Current Medications Acetaminophen (Acetaminophen 325 Mg Tablet) 975 mg PO Q6H PRN PRN Reason: moderate pain Last Admin: 06/30/23 09:28 Dose: 975 mg Al Hydroxide/Mg Hydroxide (Magnesium Hydrox/Alum Hydrox 30 Ml Oral.Susp) 30 ml PO Q6H PRN PRN Reason: Heartburn/Nausea Last Admin: 06/20/23 15:45 Dose: 30 ml Benzocaine (Throat Lozenge, Medicated Lozenge) 1 lozenge MUCOUS MEM Q2H PRN PRN Reason: Sore Throat Last Admin: 06/25/23 22:04 Dose: 1 lozenge Benztropine Mesylate (Benztropine Mesylate 1 Mg Tablet) 1 mg PO Q6H PRN PRN Reason: give with haldol PRN Last Admin: 06/30/23 20:25 Dose: 1 mg Buspirone HCl (Buspirone Hcl 10 Mg Tablet) 10 mg PO DAILY [facility] Last Admin: 06/30/23 08:49 Dose: 10 mg Fluoxetine HCl (Fluoxetine Hcl 20 Mg Capsule) 80 mg PO DAILY [facility] Last Admin: 06/30/23 08:49 Dose: 80 mg Fluticasone Propionate (Fluticasone Propionate Nasal 16 Gm Mack) 1 spray NOSTRIL-B BID PRN PRN Reason: Nasal Congestion Haloperidol (Haloperidol 5 Mg Tablet) 5 mg PO Q6H PRN PRN Reason: agitation Last Admin: 06/30/23 20:25 Dose: 5 mg Hydroxyzine HCl (Hydroxyzine Hcl 50 Mg Tablet) 50 mg PO Q6H PRN PRN Reason: Anxiety Last Admin: 06/29/23 20:08 Dose: 50 mg Lactated Ringer's (Lr) 1,000 mls @ 50 mls/hr IVCONT .Q20H [facility] Lidocaine (Lidocaine 4 % Patch Adh..Patch) 1 patch TRANSDERMA DAILY PRN; Protocol PRN Reason: sternal pain Last Admin: 06/20/23 12:16 Dose: 1 patch Lorazepam (Lorazepam 0.5 Mg Tablet) 0.5 mg PO TID PRN PRN Reason: Anxiety Last Admin: 06/30/23 09:29 Dose: 0.5 mg Magnesium Hydroxide (Milk Of Magnesia 30 Ml Oral.Susp) 30 ml PO DAILY PRN PRN Reason: Constipation Magnesium Oxide (Magnesium Oxide 400 Mg Tablet) 400 mg PO DAILY [facility] Last Admin: 06/30/23 08:49 Dose: 400 mg Multivitamins/Vitamin C (Multivitamin Tablet) 1 tab PO DAILY [facility] Last Admin: 06/30/23 08:49 Dose: 1 tab Ondansetron HCl (Ondansetron Odt 4 Mg Tab.Rapdis) 4 mg TRANSLINGU Q6H PRN PRN Reason: Nausea and Vomiting Last Admin: 06/21/23 14:10 Dose: 4 mg Prazosin HCl (Prazosin Hcl 1 Mg Capsule) 6 mg PO BEDTIME [facility]; Protocol Last Admin: 06/30/23 20:24 Dose: 6 mg Quetiapine Fumarate (Quetiapine Fumarate 50 Mg Tablet) 50 mg PO BEDTIME [facility] Last Admin: 06/30/23 20:25 Dose: 50 mg Quetiapine Fumarate (Quetiapine Fumarate 50 Mg Tablet) 50 mg PO Q4H PRN PRN Reason: agitation Simethicone (Simethicone 80 Mg Tab.Chew) 80 mg PO QIDWMHS [facility] Last Admin: 06/30/23 20:25 Dose: 80 mg Sumatriptan Succinate (Sumatriptan Succinate 100 Mg Tablet) 100 mg PO DAILY MRX1 PRN PRN Reason: Migraine Headache Last Admin: 06/19/23 14:04 Dose: 100 mg Trazodone HCl (Trazodone Hcl 50 Mg Tablet) 50 mg PO BEDTIME MRX1 PRN PRN Reason: Insomnia Last Admin: 06/30/23 20:25 Dose: 50 mg Home Medications ?Medication ?Instructions ?Recorded ?Confirmed ?Last Taken ?Type buspirone 10 mg tablet 10 mg PO TID 06/17/23 06/17/23 06/16/23 23:45 History cholecalciferol (vitamin D3) 50 50 mcg PO DAILY 06/17/23 06/17/23 Unknown History mcg (2,000 unit) tablet (Vitamin D3) fluoxetine 80 mg PO DAILY 06/17/23 06/17/2306/15/24 09:02 History liraglutide 0.6 mg/0.1 mL (18 mg/3 1.8 mg subcut DAILY 06/17/23 06/17/23 Unknown History mL) subcutaneous pen injector (Victoza 3-Kyaw) lorazepam 0.5 mg tablet 0.5 mg PO TID PRN anxiety 06/17/23 06/17/23 Unknown History ondansetron 4 mg disintegrating 4 mg translingual Q8H PRN Nausea 06/17/23 06/17/23 Unknown History tablet quetiapine 50 mg tablet 50 mg PO BEDTIME 06/17/23 06/17/23 06/16/23 23:45 History sumatriptan succinate 100 mg tablet 100 mg PO 2XW 06/17/23 06/17/23 Unknown History tizanidine 4 mg tablet 4 mg PO Q12H PRN Muscle Pain 06/17/23 06/17/23 Unknown History topiramate 25 mg tablet 75 mg PO BID 06/17/23 06/17/23 06/16/23 23:45 History Exam Height,Weight and Vital Signs: Height 5 ft 6 in Weight 87.713 kg Last Vital Signs Temp 98.2 F 07/01/23 06:10 Pulse 83 07/01/23 06:10 Resp 16 07/01/23 06:10 BP 140/60 H 07/01/23 06:10 Pulse Ox 97 07/01/23 06:10 O2 Del Method Room Air 06/30/23 20:10 O2 Flow Rate 1 06/29/23 08:15 Pertinent Lab Results Pertinent Lab Results: Laboratory Tests 06/17/23 06/25/23 06/26/23 09:06 11:08 02:45 Sodium 141 Potassium 4.3 Chloride 112 H Carbon Dioxide 23 Anion Gap 10 L BUN 9 Creatinine 0.81 Estim Creat Clear Calc 91.6 Estimated GFR > 60 Fasting Glucose 82 Calcium 9.3 Total Bilirubin 0.2 AST 13 ALT 13 Alkaline Phosphatase 49 Total Protein 6.3 L Albumin 3.5 Triglycerides 64 Cholesterol 182 LDL Cholesterol, Calc 92 HDL Cholesterol 78 T.pallidum Ab (EIA) Reactive A Chlam trachomat DNA PCR NOT DETECTED HIV 1&2 Ab/P24 Ag 4thGn Nonreactive N.gonorrhoeae DNA (PCR) NOT DETECTED Airway Mallampati Class: II TM Dist: >3cm Neck ROM: Full Heart: rrr Lungs: cta Assessment and Plan Final Anesthetic Review Family History of Problems with Anesthesia: No History of Problems with Anesthesia: No NPO: Yes ASA Class: III Final Preanesthetic Review: No Changes in Pt Med Stat, Meds/Allgs Chart Reviewed and Consent Obtained/Reviewed Patient Risk: Intermediate Procedure Risk: Intermediate Anesthetic Plan Anesthetic Plan: GA Disposition: Standard PACU
--- NOTE | 2023-07-01 08:03 | MHC.SHP ---
Pre-Procedural Eval Section A - 24 Hr Update-Section A only Date of Service: 07/01/23 The patient is an INPATIENT: Yes Changes since office visit: Yes Patient answered all questions; No Cold of Flu in the past 2 weeks, No New Medical Problems and No Changes in Medication The patient has been examined within 24 hours of the surgical procedure. The History & Physical has been completed within 30 days and I have reviewed it.: Yes Section B - Complete if H&P > 30 days Chief Complaint: PTSD and BPD Allergies: Allergies Allergy/AdvReac Type Severity Reaction Status Date / Time lithium Allergy Unknown Unknown Verified 06/16/23 21:49 metformin Allergy Unknown Unknown Verified 06/16/23 21:49 NSAIDS (Non-Steroidal Allergy Unknown Unknown Verified 06/16/23 21:49 Anti-Inflamma propoxyphene Allergy Unknown Unknown Verified 06/16/23 21:49 sulfamethoxazole Allergy Unknown Unknown Verified 06/16/23 21:49 trimethoprim Allergy Unknown Unknown Verified 06/16/23 21:49 duloxetine AdvReac Unknown Nausea Verified 06/17/23 02:58 oxcarbazepine AdvReac Unknown Unknown Verified 06/16/23 21:49 Plan I have reviewed the history and physical and performed a pertinent physical examination on my patient. No changes have occurred unless specified. Time Spent With Patient Time: Total time managing care of this patient today ____ minutes.
[2023-07-01] MEDS: FLUoxetine HCl 20 MG CAPSULE 80 MG PO (09:38)
[2023-07-01] MEDS: Multivitamin TABLET 1 TAB PO (09:39)
[2023-07-01] MEDS: Magnesium Oxide 400 MG TABLET PO (09:39)
[2023-07-01] MEDS: busPIRone HCl 10 MG TABLET PO (09:39)
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
[2023-07-01] MEDS: Simethicone 80 MG TAB.CHEW PO ×2 (12:23→17:04)
[2023-07-01] MEDS: Fluconazole 150 MG TABLET PO (12:41)
[2023-07-01 14:52] LABS: RPR Quantitative Non-Reactive (Nonreactive); T.Pallidum Particle Agg Test Reactive (Nonreactive)
[2023-07-01] MEDS: Lidocaine 4 % Patch ADH..PATCH 1 PATCH TRANSDERMA (17:11)
[2023-07-01] MEDS: LORazepam 0.5 MG TABLET PO (18:29)
[2023-07-01] MEDS: Prazosin HCL 1 MG CAPSULE 6 MG PO (21:11)
[2023-07-01] MEDS: Topiramate 25 MG TABLET PO (21:12)
[2023-07-01] MEDS: QUEtiapine Fumarate 50 MG TABLET PO (21:12)
--- NOTE | 2023-07-01 23:55 | P.PCN_ITS ---
ECT Procedure Note Diagnosis/Treatment Date of Service: 07/01/23 Diagnosis: Major Depressive Disorder Previous ECT Date: 06/29/23 Current Treatment Number: 5 Treatment: Series Interval Clinical Notes: Patient continues to feel improved future oriented mildly expansive no self-harm no psychosis no complaints of side effects Time: Total time managing care of this patient today 30____ minutes. ECT Settings Device: THYMATRON DGx Electrode Placement: Right Unilateral Program/Pulse Width: 0.25 Energy Percent: 100 Seizure Duration By EEG (in seconds): 44 Medications Administration General Anesthetic: Methohexital (120) Muscle Relaxant: Succinylcholine (140) Ancillary Medications Cardiovascular Medications: Glycopyrrolate (0.2 pretx) Airway Management Airway Management: Bag Mask Ventilation Treatment Recommendations Notes: pt scheduled to be d/c discussed outpatient options in the [facility] including S ketamine TMS patient stable future oriented Pt Tolerated Procedure w/o Issue: Yes
[2023-07-02] MEDS: hydrOXYzine HCL 50 MG TABLET PO (00:45)
[2023-07-02] MEDS: Benztropine Mesylate 1 MG TABLET PO (00:45)
[2023-07-02] MEDS: HaloperidoL 5 MG TABLET PO (00:45)
--- NOTE | 2023-07-02 06:52 | PC.NURSE ---
in anticipation of D/C later today patient has ordered a [employer] for 10:00 pickup
[2023-07-02 08:23] VITALS: BP 114/73; PULSE 62; RESP 18; TEMP 36.5; O2SAT 95
[2023-07-02] MEDS: FLUoxetine HCl 20 MG CAPSULE 80 MG PO (08:32)
[2023-07-02] MEDS: Simethicone 80 MG TAB.CHEW PO (08:33)
[2023-07-02] MEDS: Topiramate 25 MG TABLET PO (08:33)
[2023-07-02] MEDS: Multivitamin TABLET 1 TAB PO (08:33)
[2023-07-02] MEDS: Magnesium Oxide 400 MG TABLET PO (08:33)
[2023-07-02] MEDS: busPIRone HCl 10 MG TABLET PO (08:33)
== END 2023-07-02 09:30 | disposition home or self-care (01) | DRG 885 ==
PROVIDERS: Psychiatry & Neurology Psychiatry; Registered Nurse; Admitting Provider Psychiatry & Neurology Psychiatry; PCP Internal Medicine; Visit Provider Psychiatry & Neurology Psychiatry
PROC: (CPT 90870; principal; 2023-06-22 16:10)
PROC: GZB4ZZZ Other Electroconvulsive Therapy (ICD-10-PCS; CPT 90870; principal; 2023-06-27 08:00)
DX: F33.9 Major depressive disorder, recurrent, unspecified (principal); R45.851 Suicidal ideations; M54.50 Low back pain, unspecified; G89.29 Other chronic pain; G43.909 Migraine, unspecified, not intractable, without status migrainosus; F43.12 Post-traumatic stress disorder, chronic; F12.980 Cannabis use, unspecified with anxiety disorder; F14.91 Cocaine use, unspecified, in remission; Z91.51 Personal history of suicidal behavior; Z62.810 Personal history of physical and sexual abuse in childhood; Z79.899 Other long term (current) drug therapy
CPT/HCPCS: 0353U; 36415; 73110; 80053; 80061; 86592; 86780; 87389; 90870; 93005; J0330; J0461; J1596; J1805; J1885; J2250; J2405; J2704

== ENCOUNTER → 2023-06-16 21:22 | Outpatient (BNV) | payer OTHER, SELFPAY | PROVIDERS: Admitting Provider Psychiatry & Neurology Psychiatry; Visit Provider Psychiatry & Neurology Psychiatry | DX: F33.2 Major depressive disorder, recurrent severe without psychotic features (principal); F43.12 Post-traumatic stress disorder, chronic | CPT/HCPCS: 90792; 90870; 99231; 99232; 99233; 99239 ==

== ENCOUNTER → 2023-06-16 21:22 | Outpatient (BNV) | payer OTHER, SELFPAY | PROVIDERS: Admitting Provider Psychiatry & Neurology Psychiatry; Visit Provider Psychiatry & Neurology Psychiatry | DX: F33.2 Major depressive disorder, recurrent severe without psychotic features (principal) | CPT/HCPCS: 90870; 99499 ==

== ENCOUNTER → 2023-06-16 21:22 | Outpatient (BNV) | payer OTHER, SELFPAY | PROVIDERS: Admitting Provider Psychiatry & Neurology Psychiatry; Visit Provider Student in an Organized Health Care Education/Training Program | DX: Z02.2 Encounter for examination for admission to residential institution (principal) | CPT/HCPCS: 99429 ==